=== PATIENT | male | born 1970 | race Caucasian/White ===

== ENCOUNTER 2018-10-30 13:27 | Emergency (ER) | payer BC, OTHER ==
[2018-10-30] MEDS ORDERED: IPRATROPIUM-ALBUTEROL 3 ML NEB INHALATION STA (14:24)
--- NOTE | 2018-10-30 14:32 | ED ---
General Adult HPI - General Chief complaint: Shortness of Breath Stated complaint: SOB Time Seen by Provider: 10/30/18 14:04 Source: patient, RN notes reviewed Mode of arrival: ambulatory Limitations: no limitations - History of Present Illness Initial comments: Patient is a pleasant 48-year-old male presenting to the emergency Department with complaints of cough and congestion and shortness of breath. Symptoms of been present for the past 4 days. Patient has been coughing with productive yellow sputum. No fevers. Patient is a nonsmoker. This is not a chronic problem for him. No leg pain or leg swelling. No chest pain. - Related Data Home Medications Medication Instructions Recorded Confirmed Albuterol Inhaler [Ventolin Hfa 1 - 2 puff INHALATION RT-Q6H PRN 10/30/18 10/30/18 Inhaler] Aspirin EC [Ecotrin Low Dose] 81 mg PO DAILY 10/30/18 10/30/18 Ibuprofen [Motrin] 800 mg PO Q6H PRN 10/30/18 10/30/18 Metoprolol Tartrate [Lopressor] 25 mg PO DAILY 10/30/18 10/30/18 Multivitamins, Thera [Multivitamin 1 tab PO DAILY 10/30/18 10/30/18 (formulary)] Ranitidine HCl [Zantac] 150 mg PO DAILY 10/30/18 10/30/18 cloNIDine HCL [Catapres] 0.1 mg PO BID 10/30/18 10/30/18 Previous Rx's Medication Instructions Recorded predniSONE 20 mg PO BID #10 tab 10/30/18 Allergies Allergy/AdvReac Type Severity Reaction Status Date / Time No Known Allergies Allergy Verified 10/30/18 14:48 Review of Systems ROS Statement: Those systems with pertinent positive or pertinent negative responses have been documented in the HPI. ROS Other: All systems not noted in ROS Statement are negative. Constitutional: Denies: fever Eyes: Denies: eye pain ENT: Denies: ear pain Respiratory: Reports: cough, dyspnea Cardiovascular: Denies: chest pain Endocrine: Denies: fatigue Gastrointestinal: Denies: abdominal pain Genitourinary: Denies: dysuria Musculoskeletal: Denies: back pain Skin: Denies: rash Neurological: Denies: weakness Past Medical History Past Medical History: Asthma, Osteoarthritis (OA), Seizure Disorder Additional Past Medical History / Comment(s): hx of rapid heart rate, migraines, spontaneous pneumothorax History of Any Multi-Drug Resistant Organisms: None Reported Additional Past Surgical History / Comment(s): chest tube insertion Past Psychological History: No Psychological Hx Reported Smoking Status: Former smoker Past Alcohol Use History: Occasional Past Drug Use History: Marijuana General Exam Limitations: no limitations General appearance: alert, in no apparent distress Head exam: Present: atraumatic Eye exam: Present: normal appearance, PERRL ENT exam: Present: normal oropharynx Neck exam: Present: normal inspection Respiratory exam: Present: rhonchi Cardiovascular Exam: Present: regular rate, normal rhythm GI/Abdominal exam: Present: soft. Absent: tenderness Extremities exam: Present: normal inspection. Absent: pedal edema, calf tenderness Neurological exam: Present: alert Psychiatric exam: Present: normal affect, normal mood Skin exam: Present: normal color Course Vital Signs 10/30/18 10/30/18 10/30/18 13:37 15:09 15:18 Temperature 98.1 F Pulse Rate 77 64 68 Respiratory 24 Rate Blood Pressure 145/91 O2 Sat by Pulse 100 Oximetry 10/30/18 15:38 Temperature 97.9 F Pulse Rate 68 Respiratory 18 Rate Blood Pressure 136/85 O2 Sat by Pulse 97 Oximetry Medical Decision Making - Medical Decision Making Patient reevaluated and feels much better following an alleged treatment. Patient updated on results and need for follow-up. Patient states he does have a Ventolin inhaler at home. - Lab Data Lab Results 10/30/18 Range/Units 14:42 D-Dimer 0.29 (<0.60) mg/L FEU - Radiology Data Radiology results: image reviewed (Chest x-ray shows no acute process) Disposition Clinical Impression: Acute bronchitis Disposition: HOME SELF-CARE Condition: Stable Instructions (If sedation given, give patient instructions): Acute Bronchitis (ED) Additional Instructions: Please follow-up with primary care physician in the next day or 2 for recheck. Return for difficulty breathing, fevers, worsening or changing symptoms or other concerns. Prescriptions: predniSONE 20 mg PO BID #10 tab Is patient prescribed a controlled substance at d/c from ED?: No Referrals: Rylie Tyson DO [Primary Care Provider] - 1-2 days Time of Disposition: 15:48
--- NOTE | 2018-10-30 15:06 | XR ---
EXAMINATION TYPE: XR chest 2V DATE OF EXAM: 10/30/2018 COMPARISON: Chest x-ray June 19, 2017 HISTORY: Shortness of breath with cough for a few days. TECHNIQUE: Frontal and lateral views of the chest are obtained. FINDINGS: There is some chronic parenchymal change without suspicious focal air space opacity, pleur al effusion, or pneumothorax seen. The cardiac silhouette size is within normal limits. The osseou s structures are intact. IMPRESSION: No suspicious acute pulmonary process.
[2018-10-30 15:39] VITALS: RESP 18
[2018-10-30 15:58] VITALS: BP 135/87; PULSE 87; TEMP 98
== END 2018-10-30 15:58 | disposition home or self-care (01) ==
LOC: EC 13:27
DX: J20.9 Acute bronchitis, unspecified (principal); J45.909 Unspecified asthma, uncomplicated; Z87.891 Personal history of nicotine dependence; Z79.82 Long term (current) use of aspirin; Z79.899 Other long term (current) drug therapy
CPT/HCPCS: 36415; 71046; 85379; 94640; 99285

== ENCOUNTER 2019-09-18 09:05 | Emergency (ER) | payer BC ==
[2019-09-18 09:14] VITALS: RESP 18; TEMP 98.2
[2019-09-18] MEDS ORDERED: METOCLOPRAMIDE 5 MG/ML 2 ML VIAL IVP STA (09:34)
[2019-09-18] MEDS ORDERED: MAG HYDROX/AL HYDROX/SIMETH 30 ML, HYOSCYAMINE ELIXIR 10 ML PO STA ×2 (09:34)
[2019-09-18] MEDS ORDERED: diphenhydrAMINE 50 MG/ML 1 ML VIAL IVP STA (09:34)
[2019-09-18] MEDS ORDERED: PANTOPRAZOLE 40 MG/10 ML VIAL IVP STA (09:34)
[2019-09-18] MEDS ORDERED: SODIUM CHLORIDE 0.9% 2,000 ML IV STA (09:34)
--- NOTE | 2019-09-18 09:51 | ED ---
Abdominal Pain HPI - General Chief Complaint: Abdominal Pain Stated Complaint: abd pain/vomiting/cough Time Seen by Provider: 09/18/19 09:17 Source: patient, RN notes reviewed Mode of arrival: ambulatory Limitations: no limitations - History of Present Illness Initial Comments: 48-year-old male presents emergency Department chief complaint of abdominal pain. Patient states his upper abdominal pain that has been going on since Sunday. Patient states he was seen by his PCP and Sunday was given Zofran and a shot of antiemetics in the office. Patient states that he is advised to go emergency Department if no improved. He states is primarily bilious but states he felt that there was some blood in it. Denies any melanotic stool or hematochezia at this time. Patient denies any fever, chills no prior abdominal issues denies any history of liver disease, IBS or IBD. Patient denies any dysuria hematuria no sick contacts no chest pain or shortness breath. - Related Data Home Medications Medication Instructions Recorded Confirmed Albuterol Inhaler (Mhu) [Ventolin 1 - 2 puff INHALATION RT-Q6H PRN 10/30/18 0 10/30/18 Hfa Inhaler] Aspirin EC [Ecotrin Low Dose] 81 mg PO DAILY 10/30/18 10/30/18 Ibuprofen [Motrin] 800 mg PO Q6H PRN 10/30/18 10/30/18 Metoprolol Tartrate [Lopressor] 25 mg PO DAILY 10/30/18 10/30/18 Multivitamins, Thera [Multivitamin 1 tab PO DAILY 10/30/18 10/30/18 (formulary)] Ranitidine HCl [Zantac] 150 mg PO DAILY 10/30/18 10/30/18 cloNIDine HCL [Catapres] 0.1 mg PO BID 10/30/18 10/30/18 Previous Rx's Medication Instructions Recorded predniSONE [Deltasone] 20 mg PO BID #10 tab 10/30/18 Metoclopramide [Reglan] 10 mg PO TID PRN #15 tab 09/18/19 Omeprazole [PriLOSEC] 40 mg PO DAILY #14 cap 09/18/19 Allergies Allergy/AdvReac Type Severity Reaction Status Date / Time No Known Allergies Allergy Verified 09/18/19 09:14 Review of Systems ROS Statement: Those systems with pertinent positive or pertinent negative responses have been documented in the HPI. ROS Other: All systems not noted in ROS Statement are negative. Past Medical History Past Medical History: Asthma, Osteoarthritis (OA), Seizure Disorder Additional Past Medical History / Comment(s): hx of rapid heart rate, migraines, spontaneous pneumothorax History of Any Multi-Drug Resistant Organisms: None Reported Additional Past Surgical History / Comment(s): chest tube insertion Past Psychological History: No Psychological Hx Reported Smoking Status: Former smoker Past Alcohol Use History: Occasional Past Drug Use History: Marijuana General Exam Limitations: no limitations General appearance: alert, in no apparent distress Head exam: Present: atraumatic, normocephalic, normal inspection Eye exam: Present: normal appearance, PERRL, EOMI. Absent: scleral icterus, conjunctival injection, periorbital swelling ENT exam: Present: normal exam, normal oropharynx, mucous membranes moist Neck exam: Present: normal inspection. Absent: tenderness, meningismus, lymphadenopathy Respiratory exam: Present: normal lung sounds bilaterally. Absent: respiratory distress, wheezes, rales, rhonchi, stridor Cardiovascular Exam: Present: regular rate, normal rhythm, normal heart sounds. Absent: systolic murmur, diastolic murmur, rubs, gallop, clicks GI/Abdominal exam: Present: soft, tenderness (Found moderate epigastric, left upper quadrant tenderness), normal bowel sounds. Absent: distended, guarding, rebound, rigid Back exam: Absent: CVA tenderness (R), CVA tenderness (L) Neurological exam: Present: alert, oriented X3 Skin exam: Present: warm, dry, intact, normal color. Absent: rash Course Vital Signs 09/18/19 09:10 Temperature 98.2 F Pulse Rate 57 L Respiratory 18 Rate Blood Pressure 156/95 O2 Sat by Pulse 100 Oximetry - Reevaluation(s) Reevaluation #1: 09/18/19 11:13 Patient reevaluated and updated on results patient states he feels greatly improved after antiemetics and GI cocktail. He states the burning has subsided. Medical Decision Making - Medical Decision Making 48-year-old male presented emergency from for epigastric discomfort. Patient's had labs which are essentially unremarkable. Patient was given GI cocktail, Reglan which greatly improved his symptoms. His symptoms are consistent with gastritis/PUD. Patient was started on Lozol 40 mg. He is advised to discontinue NSAID use. He is advised follow-up for EGD with GI. Return par ameters were discussed. Is also advised follow-up with PCP within one to days. - Lab Data Result diagrams: 09/18/19 09:50 09/18/19 09:50 Lab Results 09/18/19 09/18/19 09/18/19 Range/Units 09:50 09:50 09:50 WBC 11.9 H (3.8-10.6) k/uL RBC 5.09 (4.30-5.90) m/uL Hgb 14.7 (13.0-17.5) gm/dL Hct 44.4 (39.0-53.0) % MCV 87.3 (80.0-100.0) fL MCH 28.9 (25.0-35.0) pg MCHC 33.1 (31.0-37.0) g/dL RDW 12.6 (11.5-15.5) % Plt Count 437 (150-450) k/uL Neutrophils % 74 % Lymphocytes % 18 % Monocytes % 4 % Eosinophils % 2 % Basophils % 0 % Neutrophils # 8.8 H (1.3-7.7) k/uL Lymphocytes # 2.1 (1.0-4.8) k/uL Monocytes # 0.5 (0-1.0) k/uL Eosinophils # 0.3 (0-0.7) k/uL Basophils # 0.0 (0-0.2) k/uL PT 10.6 (9.0-12.0) sec INR 1.0 (<1.2) APTT 21.8 L (22.0-30.0) sec Sodium 137 (137-145) mmol/L Potassium 4.3 (3.5-5.1) mmol/L Chloride 107 (98-107) mmol/L Carbon Dioxide 23 (22-30) mmol/L Anion Gap 7 mmol/L BUN 15 (9-20) mg/dL Creatinine 0.75 (0.66-1.25) mg/dL Est GFR (CKD-EPI)AfAm >90 (>60 ml/min/1.73 sqM) Est GFR (CKD-EPI)NonAf >90 (>60 ml/min/1.73 sqM) Glucose 95 (74-99) mg/dL Plasma Lactic Acid Richardson (0.7-2.0) mmol/L Calcium 9.7 (8.4-10.2) mg/dL Total Bilirubin 0.6 (0.2-1.3) mg/dL AST 29 (17-59) U/L ALT 17 (4-49) U/L Alkaline Phosphatase 108 (38-126) U/L Total Protein 7.7 (6.3-8.2) g/dL Albumin 4.5 (3.5-5.0) g/dL Amylase 70 (30-110) U/L Lipase 99 (23-300) U/L 09/18/19 Range/Units 09:50 WBC (3.8-10.6) k/uL RBC (4.30-5.90) m/uL Hgb (13.0-17.5) gm/dL Hct (39.0-53.0) % MCV (80.0-100.0) fL MCH (25.0-35.0) pg MCHC (31.0-37.0) g/dL RDW (11.5-15.5) % Plt Count (150-450) k/uL Neutrophils % % Lymphocytes % % Monocytes % % Eosinophils % % Basophils % % Neutrophils # (1.3-7.7) k/uL Lymphocytes # (1.0-4.8) k/uL Monocytes # (0-1.0) k/uL Eosinophils # (0-0.7) k/uL Basophils # (0-0.2) k/uL PT (9.0-12.0) sec INR (<1.2) APTT (22.0-30.0) sec Sodium (137-145) mmol/L Potassium (3.5-5.1) mmol/L Chloride (98-107) mmol/L Carbon Dioxide (22-30) mmol/L Anion Gap mmol/L BUN (9-20) mg/dL Creatinine (0.66-1.25) mg/dL Est GFR (CKD-EPI)AfAm (>60 ml/min/1.73 sqM) Est GFR (CKD-EPI)NonAf (>60 ml/min/1.73 sqM) Glucose (74-99) mg/dL Plasma Lactic Acid Richardson 1.2 (0.7-2.0) mmol/L Calcium (8.4-10.2) mg/dL Total Bilirubin (0.2-1.3) mg/dL AST (17-59) U/L ALT (4-49) U/L Alkaline Phosphatase (38-126) U/L Total Protein (6.3-8.2) g/dL Albumin (3.5-5.0) g/dL Amylase (30-110) U/L Lipase (23-300) U/L Disposition Clinical Impression: Gastritis, Abdominal pain Disposition: HOME SELF-CARE Condition: Stable Instructions (If sedation given, give patient instructions): Gastritis (ED), Diet for Stomach Ulcers and Gastritis (ED) Additional Instructions: Discontinue NSAID use. Please return to the Emergency Department if symptoms worsen or any other concerns. Prescriptions: Omeprazole [PriLOSEC] 40 mg PO DAILY #14 cap Metoclopramide [Reglan] 10 mg PO TID PRN #15 tab PRN Reason: GERD Is patient prescribed a controlled substance at d/c from ED?: No Referrals: Rylie Tyson DO [Primary Care Provider] - 1-2 days Audrey Norwood MD [STAFF PHYSICIAN] - 1-2 days Time of Disposition: 11:15
[2019-09-18 10:19] LABS: Basophils % (A) 0 %; Eosinophils # (A) 0.3 k/uL (0-0.7); Eosinophils % (A) 2 %; HCT 44.4 % (39.0-53.0); HGB 14.7 gm/dL (13.0-17.5); Lymphocytes # (A) 2.1 k/uL (1.0-4.8); Lymphocytes % (A) 18 %; MCH 28.9 pg (25.0-35.0); MCHC 33.1 g/dL (31.0-37.0); MCV 87.3 fL (80.0-100.0); Monocytes # (A) 0.5 k/uL (0-1.0); Monocytes % (A) 4 %; Neutrophils # (A) 8.8 k/uL (1.3-7.7); Neutrophils % (A) 74 %; Platelet Count 437 k/uL (150-450); RBC 5.09 m/uL (4.30-5.90); RDW 12.6 % (11.5-15.5); WBC 11.9 k/uL (3.8-10.6)
--- NOTE | 2019-09-18 10:21 | XR ---
EXAMINATION TYPE: XR KUB DATE OF EXAM: 09/18/2019 Comparison: None Clinical History: 48 year-old male abdominal pain Findings: Lung bases are clear. No evidence for free intraperitoneal air. No dilated small bowel or differential air-fluid levels. Scattered [id number] stool with air extending distally to the rectum. Pelvic phleboliths. Impression: No evidence for free air or bowel obstruction. Mild to moderate stool burden.
[2019-09-18 10:41] LABS: Prothrombin Time 10.6 sec (9.0-12.0)
[2019-09-18 10:44] LABS: Partial Thromboplastin Time 21.8 sec (22.0-30.0)
[2019-09-18 10:49] LABS: Potassium 4.3 mmol/L (3.5-5.1)
[2019-09-18 10:50] LABS: ALT 17 U/L (4-49); AST 29 U/L (17-59); African American GFR (CKD) >90 (>60 ml/min/1.73 sqM); Albumin 4.5 g/dL (3.5-5.0); Alkaline Phosphatase 108 U/L (38-126); Amylase 70 U/L (30-110); Anion Gap 7 mmol/L; Blood Urea Nitrogen 15 mg/dL (9-20); Calcium 9.7 mg/dL (8.4-10.2); Carbon Dioxide 23 mmol/L (22-30); Chloride 107 mmol/L (98-107); Glucose 95 mg/dL (74-99); Non-African American GFR(CKD) >90 (>60 ml/min/1.73 sqM); Sodium 137 mmol/L (137-145); Total Bilirubin 0.6 mg/dL (0.2-1.3); Total Protein 7.7 g/dL (6.3-8.2)
[2019-09-18] MEDS ORDERED: ACET/COD 300 MG/30 MG STARTER PACK 6 TAB BTL PO STA (11:35)
[2019-09-18 11:42] LABS: Appearance,Urine Clear (Clear); Bilirubin,Urine Negative (Negative); Blood,Urine Trace (Negative); Color,Urine Light Yellow; Glucose,Urine (UA) Negative (Negative); Ketones,Urine Negative (Negative); Leukocyte Esterase,Urine Negative (Negative); Mucus,Urine Rare /hpf; Nitrite,Urine Negative (Negative); PH, Urine 7.5 (5.0-8.0); Protein,Urine Negative (Negative); RBC,Urine 3 /hpf (0-5); Specific Gravity,Urine 1.006 (1.001-1.035); Urobilinogen,Urine <2.0 mg/dL (<2.0)
[2019-09-18 11:46] VITALS: BP 154/88; PULSE 80
== END 2019-09-18 11:44 | disposition home or self-care (01) ==
LOC: EC 09:05
DX: K29.70 Gastritis, unspecified, without bleeding (principal); J45.909 Unspecified asthma, uncomplicated; Z79.51 Long term (current) use of inhaled steroids; Z79.899 Other long term (current) drug therapy; Z79.82 Long term (current) use of aspirin; Z87.891 Personal history of nicotine dependence
CPT/HCPCS: 36415; 74018; 80053; 81001; 82150; 83605; 83690; 85025; 85610; 85730; 96361; 96374; 96375; 99284

== ENCOUNTER → 2019-10-13 | Day surgery (SDC) | payer BC ==
[2019-10-09 10:07] VITALS: BMI 21.5
[~2019-10-13] MED LIST: GLYCOPYRROLATE 0.2 MG/ML 2 ML VIAL ONE; LACTATED RINGERS 1,000 ML IV SCH; LIDOCAINE 1% (10MG/ML) FOR IV START INTRADERMA ONE; LIDOCAINE 1% INJ 10MG/ML (20 ML MDV) ONE; PROPOFOL 10 MG/ML 20 ML VIAL IV ONE
[2019-10-13 11:04] VITALS: TEMP 97.4
[2019-10-13 11:23] LABS: Glucose,Whole Blood 101 mg/dL (75-99)
--- NOTE | 2019-10-13 12:42 | P.PCN ---
Date of Procedure: 10/13/19 Description of Procedure: BRIEF HISTORY: Patient is a 49-year-old female presenting for outpatient EGD for evaluation of hematemesis. Patient is seen in the ER for abdominal pain and hematemesis. Follow-up in gastroenterology clinic and was started on PPI therapy. Denies any NSAID use. No change in bowel movements. PROCEDURE PERFORMED: Esophagogastroduodenoscopy with biopsy. PREOPERATIVE DIAGNOSIS: Hematemesis. ESTIMATED BLOOD LOSS: Minimal. IV sedation per anesthesia. PROCEDURE: After informed consent was obtained, the patient was brought into the endoscopy unit. IV sedation was administered by Anesthesia under continuous monitoring. Initially the Olympus GIF-190 video endoscope was inserted into the mouth. Esophagus intubated without any difficulty. It was gradually advanced into the stomach and duodenum and carefully examined. The bulb and the second part of the duodenum appeared normal, with biopsies taken. The scope at this time was withdrawn to the stomach, adequately insufflated with air, and upon careful examination, mucosa of the antrum, body, cardia and the fundus appeared normal except for some mild scattered punctate erythema in the antrum and body suggestive of mild gastritis with biopsies taken. There was also a 5 mm nonbleeding antral ulcer which was biopsied. The scope was then withdrawn into the esophagus. The GE junction was located at 39 cm from the incisors and appeared regular with biopsies taken. The esophagus appeared normal. There were no erosions or ulcerations seen and the patient tolerated the procedure well. IMPRESSION: 1. Nonbleeding 5 mm antral ulcer, biopsies. 2. Mild gastritis antrum and body, biopsied. 3. Biopsies of the duodenum and GE junction. RECOMMENDATIONS: The findings of this examination were discussed with the patient. Okay to resume diet. Okay to resume medications. Continue to avoid NSAID use. Continue Omeprazole daily. Patient has follow-up appointment in November and can be scheduled for repeat EGD at a time to check for ulcer healing.
[2019-10-13 12:44] VITALS: BP 117/78
[2019-10-13 12:57] VITALS: PULSE 53; RESP 16
== END ==
LOC: ORWHC2ENDO 10:36
PROVIDERS: ATTEND Internal Medicine
DX: K29.51 Unspecified chronic gastritis with bleeding (principal); K22.8 Other specified diseases of esophagus; K25.4 Chronic or unspecified gastric ulcer with hemorrhage; K08.109 Complete loss of teeth, unspecified cause, unspecified class; I10 Essential (primary) hypertension; J44.9 Chronic obstructive pulmonary disease, unspecified; G43.909 Migraine, unspecified, not intractable, without status migrainosus; F41.9 Anxiety disorder, unspecified; F32.9 Major depressive disorder, single episode, unspecified; M19.90 Unspecified osteoarthritis, unspecified site; Z87.891 Personal history of nicotine dependence; Z79.52 Long term (current) use of systemic steroids; Z79.899 Other long term (current) drug therapy; Z79.82 Long term (current) use of aspirin; Z79.1 Long term (current) use of non-steroidal anti-inflammatories (NSAID); Z98.890 Other specified postprocedural states; Z86.73 Personal history of transient ischemic attack (TIA), and cerebral infarction without residual deficits; Z86.69 Personal history of other diseases of the nervous system and sense organs; Z87.828 Personal history of other (healed) physical injury and trauma
CPT/HCPCS: 88305; 43239; J2001; J2704

== ENCOUNTER 2020-07-10 18:51 | Emergency (ER) | payer BC ==
[2020-07-10] MEDS ORDERED: SODIUM CHLORIDE 0.9% 1,000 ML IV STA (19:04)
[2020-07-10 19:06] VITALS: BP 164/97; PULSE 50; RESP 18; TEMP 98.8
[2020-07-10 19:07] LABS: Glucose,Whole Blood 100 mg/dL (75-99)
--- NOTE | 2020-07-10 19:07 | ED ---
General Adult HPI - General Chief complaint: Syncope Stated complaint: Chest Pain Time Seen by Provider: 07/10/20 18:53 Source: patient, EMS Mode of arrival: EMS Limitations: no limitations - History of Present Illness Initial comments: Patient presents the ED by ambulance for evaluation. Patient states that he was sitting in a [employer] while at work today when he suddenly became lightheaded, then had a syncopal episode. Patient states that his coworkers witnessed his syncopal episode, and he denies falling or sustaining any trauma. Patient states that he just feels very "worn out" currently. Patient states that he had a meal to eat about 30 minutes prior to his syncopal episode today. Patient denies alcohol use or illicit drug use today. Patient states that he has otherwise felt fine today. Patient denies having any pain, fever or chills, headache, focal numbness/weakness/neuro deficit, visual changes, speech difficulty, chest pain or pressure, dyspnea, palpitations, abdominal pain, nausea/vomiting/diarrhea, bloody or melanotic stool, dysuria or urinary symptoms, or any other symptoms or complaints. Patient denies any recent change in his medications. Patient states that he takes metoprolol and clonidine for management of his high blood pressure. - Related Data Home Medications Medication Instructions Recorded Confirmed Albuterol Inhaler (Mhu) [Ventolin 1 - 2 puff INHALATION RT-Q6H PRN 10/30/18 10/09/19 Hfa Inhaler] Aspirin EC [Ecotrin Low Dose] 81 mg PO DAILY 10/30/18 10/09/19 Metoprolol Tartrate [Lopressor] 25 mg PO QAM 10/30/18 10/09/19 Multivitamins, Thera [Multivitamin 1 tab PO DAILY 10/30/18 10/09/19 (formulary)] cloNIDine HCL [Catapres] 0.1 mg PO BID 10/30/18 10/09/19 Previous Rx's Medication Instructions Recorded predniSONE [Deltasone] 20 mg PO BID #10 tab 10/30/18 Metoclopramide [Reglan] 10 mg PO TID PRN #15 tab 09/18/19 Omeprazole [PriLOSEC] 40 mg PO DAILY #14 cap 09/18/19 Allergies Allergy/AdvReac Type Severity Reaction Status Date / Time No Known Allergies Allergy Verified 07/10/20 18:59 Review of Systems ROS Statement: Those systems with pertinent positive or pertinent negative responses have been documented in the HPI. ROS Other: All systems not noted in ROS Statement are negative. Past Medical History Past Medical History: Asthma, COPD, CVA/TIA, Hypertension, Osteoarthritis (OA), Seizure Disorder Additional Past Medical History / Comment(s): recent episodes of vomiting blood, hx of head injury r/t fall from tree, migraines, spontaneous pneumothorax, states TIA x3, some short term memory loss History of Any Multi-Drug Resistant Organisms: None Reported Additional Past Surgical History / Comment(s): chest tube insertion Past Anesthesia/Blood Transfusion Reactions: No Reported Reaction Past Psychological History: Anxiety, Depression Past Alcohol Use History: Rare Past Drug Use History: Marijuana - Past Family History Mother Family Medical History: No Reported History General Exam Limitations: no limitations General appearance: alert, in no apparent distress Head exam: Present: atraumatic, normocephalic Eye exam: Present: normal appearance, PERRL, EOMI ENT exam: Present: mucous membranes moist Neck exam: Present: other (Trachea is in midline) Respiratory exam: Present: normal lung sounds bilaterally. Absent: respiratory distress, wheezes, rales, rhonchi, stridor Cardiovascular Exam: Present: normal rhythm, bradycardia, normal heart sounds, other (Normal radial pulses bilaterally) GI/Abdominal exam: Present: soft. Absent: distended, tenderness, guarding Extremities exam: Present: full ROM. Absent: tenderness, pedal edema Neurological exam: Present: alert, oriented X3, CN II-XII intact. Absent: motor sensory deficit Psychiatric exam: Present: normal affect, normal mood Skin exam: Present: warm, dry, intact, normal color Course Vital Signs 07/10/20 18:59 Temperature 98.8 F Pulse Rate 50 L Respiratory 18 Rate Blood Pressure 164/97 O2 Sat by Pulse 99 Oximetry - Reevaluation(s) Reevaluation #1: 07/10/20 21:04 Patient states that he feels "much better" now, and he denies development of any new symptoms while in the ED. 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 Patient remains alert and breathing comfortably. Patient and ar e aware of the patient's test results, and patient feels comfortable going home with his at this time. Patient was counseled about syncope, and he was instructed to drink plenty of water/fluids to stay hydrated. Patient was clearly explained return and follow-up instructions, and he was instructed to follow up closely with his primary care provider. Patient feels comfortable with this plan. EKG Findings - EKG Comments: EKG Findings:: Sinus bradycardia, ventricular rate of 49 bpm, normal PA and QRS intervals, normal QT interval, normal axis, no ST or T-wave abnormality Medical Decision Making - Medical Decision Making Patient's EKG shows sinus bradycardia, but is otherwise unremarkable. Patient states that he does take a beta ariel daily (metoprolol). Patient's labs and chest x-ray are fairly unremarkable. I do not suspect an emergent medical etiology of the patient's syncope. Will discharge patient home with his at this time. Clear return and follow up instructions were given. Patient was instructed to have a low threshold for return to the ED should he develop new or worsening symptoms. Patient feels comfortable with this plan. - Lab Data Result diagrams: 07/10/20 19:09 07/10/20 19:09 Lab Results 07/10/20 07/10/20 07/10/20 Range/Units 19:06 19:09 19:09 WBC 8.2 (3.8-10.6) k/uL RBC 4.71 (4.30-5.90) m/uL Hgb 13.6 (13.0-17.5) gm/dL Hct 40.9 (39.0-53.0) % MCV 87.0 (80.0-100.0) fL MCH 28.8 (25.0-35.0) pg MCHC 33.1 (31.0-37.0) g/dL RDW 13.3 (11.5-15.5) % Plt Count 392 (150-450) k/uL MPV 6.2 Neutrophils % 64 % Lymphocytes % 27 % Monocytes % 5 % Eosinophils % 3 % Basophils % 1 % Neutrophils # 5.2 (1.3-7.7) k/uL Lymphocytes # 2.2 (1.0-4.8) k/uL Monocytes # 0.4 (0-1.0) k/uL Eosinophils # 0.2 (0-0.7) k/uL Basophils # 0.1 (0-0.2) k/uL PT 11.0 (9.0-12.0) sec INR 1.0 (<1.2) APTT 23.2 (22.0-30.0) sec Sodium (137-145) mmol/L Potassium (3.5-5.1) mmol/L Chloride (98-107) mmol/L Carbon Dioxide (22-30) mmol/L Anion Gap mmol/L BUN (9-20) mg/dL Creatinine (0.66-1.25) mg/dL Est GFR (CKD-EPI)AfAm (>60 ml/min/1.73 sqM) Est GFR (CKD-EPI)NonAf (>60 ml/min/1.73 sqM) Glucose (74-99) mg/dL POC Glucose (mg/dL) 100 H (75-99) mg/dL POC Glu Mechanical Maintenance Foreman Yara Alvarez Calcium (8.4-10.2) mg/dL Magnesium (1.6-2.3) mg/dL Total Bilirubin (0.2-1.3) mg/dL AST (17-59) U/L ALT (4-49) U/L Alkaline Phosphatase (38-126) U/L Troponin I (0.000-0.034) ng/mL Total Protein (6.3-8.2) g/dL Albumin (3.5-5.0) g/dL 07/10/20 07/10/20 Range/Units 19:09 19:09 WBC (3.8-10.6) k/uL RBC (4.30-5.90) m/uL Hgb (13.0-17.5) gm/dL Hct (39.0-53.0) % MCV (80.0-100.0) fL MCH (25.0-35.0) pg MCHC (31.0-37.0) g/dL RDW (11.5-15.5) % Plt Count (150-450) k/uL MPV Neutrophils % % Lymphocytes % % Monocytes % % Eosinophils % % Basophils % % Neutrophils # (1.3-7.7) k/uL Lymphocytes # (1.0-4.8) k/uL Monocytes # (0-1.0) k/uL Eosinophils # (0-0.7) k/uL Basophils # (0-0.2) k/uL PT (9.0-12.0) sec INR (<1.2) APTT (22.0-30.0) sec Sodium 136 L (137-145) mmol/L Potassium 3.9 (3.5-5.1) mmol/L Chloride 104 (98-107) mmol/L Carbon Dioxide 25 (22-30) mmol/L Anion Gap 7 mmol/L BUN 20 (9-20) mg/dL Creatinine 0.90 (0.66-1.25) mg/dL Est GFR (CKD-EPI)AfAm >90 (>60 ml/min/1.73 sqM) Est GFR (CKD-EPI)NonAf >90 (>60 ml/min/1.73 sqM) Glucose 100 H (74-99) mg/dL POC Glucose (mg/dL) (75-99) mg/dL POC Glu Mechanical Maintenance Foreman ID Calcium 9.0 (8.4-10.2) mg/dL Magnesium 2.0 (1.6-2.3) mg/dL Total Bilirubin 0.4 (0.2-1.3) mg/dL AST 31 (17-59) U/L ALT 19 (4-49) U/L Alkaline Phosphatase 97 (38-126) U/L Troponin I <0.012 (0.000-0.034) ng/mL Total Protein 7.0 (6.3-8.2) g/dL Albumin 4.1 (3.5-5.0) g/dL - Radiology Data Radiology results: report reviewed (Chest x-ray: Minimal subsegmental atelectasis left lung base, normal heart) Disposition Clinical Impression: Syncope Disposition: HOME SELF-CARE Condition: Stable Instructions (If sedation given, give patient instructions): Syncope (ED) Additional Instructions: Return to the ER immediately should you develop any significant pain, a fever, chest pain, shortness of breath, feeling faint or fainting, or new or worsening symptoms. Follow up closely with your primary care provider. Is patient prescribed a controlled substance at d/c from ED?: No Referrals: Rylie Tyson DO [Primary Care Provider] - 1-2 days Time of Disposition: 21:08
[2020-07-10 19:27] LABS: Basophils # (A) 0.1 k/uL (0-0.2); Basophils % (A) 1 %; Eosinophils # (A) 0.2 k/uL (0-0.7); Eosinophils % (A) 3 %; HCT 40.9 % (39.0-53.0); HGB 13.6 gm/dL (13.0-17.5); Lymphocytes # (A) 2.2 k/uL (1.0-4.8); Lymphocytes % (A) 27 %; MCH 28.8 pg (25.0-35.0); MCHC 33.1 g/dL (31.0-37.0); Mean Platelet Volume 6.2; Monocytes # (A) 0.4 k/uL (0-1.0); Monocytes % (A) 5 %; Neutrophils # (A) 5.2 k/uL (1.3-7.7); Neutrophils % (A) 64 %; Platelet Count 392 k/uL (150-450); RBC 4.71 m/uL (4.30-5.90); RDW 13.3 % (11.5-15.5); WBC 8.2 k/uL (3.8-10.6)
[2020-07-10 19:32] LABS: Partial Thromboplastin Time 23.2 sec (22.0-30.0)
[2020-07-10 19:35] LABS: ALT 19 U/L (4-49); AST 31 U/L (17-59); African American GFR (CKD) >90 (>60 ml/min/1.73 sqM); Albumin 4.1 g/dL (3.5-5.0); Alkaline Phosphatase 97 U/L (38-126); Anion Gap 7 mmol/L; Blood Urea Nitrogen 20 mg/dL (9-20); Carbon Dioxide 25 mmol/L (22-30); Chloride 104 mmol/L (98-107); Glucose 100 mg/dL (74-99); Non-African American GFR(CKD) >90 (>60 ml/min/1.73 sqM); Potassium 3.9 mmol/L (3.5-5.1); Sodium 136 mmol/L (137-145); Total Bilirubin 0.4 mg/dL (0.2-1.3)
--- NOTE | 2020-07-10 19:50 | XR ---
EXAMINATION TYPE: XR chest 2V DATE OF EXAM: 07/10/2020 COMPARISON: 10/30/2018 HISTORY: Syncope TECHNIQUE: 2 views FINDINGS: Heart and mediastinum are normal. Lungs are clear of infiltrate. There is small subsegmenta l atelectasis left lung base. There are chest leads. IMPRESSION: Minimal subsegmental atelectasis left lung base. Normal heart.
== END 2020-07-10 21:30 | disposition home or self-care (01) ==
LOC: EC 18:51
DX: R55 Syncope and collapse (principal); J44.9 Chronic obstructive pulmonary disease, unspecified; I10 Essential (primary) hypertension; M19.90 Unspecified osteoarthritis, unspecified site; G40.909 Epilepsy, unspecified, not intractable, without status epilepticus; F32.9 Major depressive disorder, single episode, unspecified; F12.90 Cannabis use, unspecified, uncomplicated; Z86.73 Personal history of transient ischemic attack (TIA), and cerebral infarction without residual deficits; Z79.82 Long term (current) use of aspirin; Z79.52 Long term (current) use of systemic steroids
CPT/HCPCS: 36415; 71046; 80053; 83735; 84484; 85025; 85610; 85730; 93005; 96361; 96376; 99284

== ENCOUNTER 2021-01-21 09:51 | Observation (INO) | payer BC, OTHER ==
[2021-01-21] MEDS ORDERED: SODIUM CHLORIDE 0.9% 500 ML 500 ML IV STA (10:06)
[2021-01-21] MEDS ORDERED: ASPIRIN 81 MG PO STA (10:06)
[2021-01-21] MEDS ORDERED: LORazepam 2 MG/ML INJ IV STA (10:08)
--- NOTE | 2021-01-21 10:11 | ED ---
General Adult HPI - General Chief complaint: Chest Pain Stated complaint: chest pain Time Seen by Provider: 01/21/21 10:00 Source: patient, EMS, RN notes reviewed, old records reviewed Mode of arrival: EMS Limitations: no limitations - History of Present Illness Initial comments: This is a 50-year-old male who presents emergency Department complaining of chest pressure at work. Patient states he was under a lot of stress at work he started having chest pressure last between 5-10 minutes. Patient states became very diaphoretic. Patient states after that he started having some tingling in his right arm and around his lips. Patient does state he has a history of anxiety. Patient states once he sat down and relaxed the chest pressure eventually subsided. Patient states currently he has no chest pressure. Patient denies headache patient denies numbness weakness. Patient denies lightheadedness or dizziness. Patient denies abdominal pain patient denies nausea vomiting diarrhea. Patient denies any radiation of the chest pain. Patient denies any swelling to the legs or calf tenderness. Patient states she has a history of hypertension and a strong family history of heart disease. Patient does not smoke. - Related Data Home Medications Medication Instructions Recorded Confirmed Albuterol Inhaler (Mhu) [Ventolin 1 - 2 puff INHALATION RT-Q6H PRN 10/30/18 10/09/19 Hfa Inhaler] Aspirin EC [Ecotrin Low Dose] 81 mg PO DAILY 10/30/18 10/09/19 Metoprolol Tartrate [Lopressor] 25 mg PO QAM 10/30/18 10/09/19 Multivitamins, Thera [Multivitamin 1 tab PO DAILY 10/30/18 10/09/19 (formulary)] cloNIDine HCL [Catapres] 0.1 mg PO BID 10/30/18 10/09/19 Previous Rx's Medication Instructions Recorded predniSONE [Deltasone] 20 mg PO BID #10 tab 10/30/18 Metoclopramide [Reglan] 10 mg PO TID PRN #15 tab 09/18/19 Omeprazole [PriLOSEC] 40 mg PO DAILY #14 cap 09/18/19 Allergies Allergy/AdvReac Type Severity Reaction Status Date / Time No Known Allergies Allergy Verified 01/21/21 09:59 Review of Systems ROS Statement: Those systems with pertinent positive or pertinent negative responses have been documented in the HPI. ROS Other: All systems not noted in ROS Statement are negative. Past Medical History Past Medical History: Asthma, COPD, CVA/TIA, Hypertension, Osteoarthritis (OA), Seizure Disorder Additional Past Medical History / Comment(s): recent episodes of vomiting blood, hx of head injury r/t fall from tree, migraines, spontaneous pneumothorax, states TIA x3, some short term memory loss History of Any Multi-Drug Resistant Organisms: None Reported Additional Past Surgical History / Comment(s): chest tube insertion Past Anesthesia/Blood Transfusion Reactions: No Reported Reaction Past Psychological History: Anxiety, Depression Smoking Status: Never smoker Past Alcohol Use History: Rare Past Drug Use History: Marijuana - Past Family History Mother Family Medical History: No Reported History General Exam - General Exam Comments Initial Comments: GENERAL: Patient is well-developed and well-nourished. Patient is nontoxic and well- hydrated and is in mild distress. ENT: Neck is soft and supple. No significant lymphadenopathy is noted. Oropharynx is clear. Moist mucous membranes. Neck has full range of motion without eliciting any pain. EYES: The sclera were anicteric and conjunctiva were pink and moist. Extraocular movements were intact and pupils were equal round and reactive to light. Eyelids were unremarkable. PULMONARY: Unlabored respirations. Good breath sounds bilaterally. No audible rales rhonchi or wheezing was noted. CARDIOVASCULAR: There is a regular rate and rhythm without any murmurs gallops or rubs. ABDOMEN: Soft and nontender with normal bowel sounds. SKIN: Skin is clear with no lesions or rashes and otherwise unremarkable. NEUROLOGIC: Patient is alert and oriented x3. Cranial nerves II through XII are grossly intact. Motor and sensory are also intact. Normal speech, volume and content. Symmetrical smile. MUSCULOSKELETAL: Normal extremities with adequate strength and full range of motion. No lower extremity swelling or edema. No calf tenderness. LYMPHATICS: No significant lymphadenopathy is noted PSYCHIATRIC: Normal psychiatric evaluation. Limitations: no limitations Course Vital Signs 01/21/21 01/21/21 09:52 11:16 Temperature 98 F Pulse Rate 64 58 L Respiratory 18 18 Rate Blood Pressure 157/105 130/90 O2 Sat by Pulse 96 98 Oximetry Medical Decision Making - Medical Decision Making EKG shows normal sinus rhythm at 63 bpm IL interval 160 QRS is 96 QT interval 412 QTC is 421 per patient's EKG shows no ST segment elevation or depression. EKG is a posterior EKG shows a sinus rhythm at 60 bpm IL interval is 132 QRS is 84 QT interval 390 QTC is 414. There is no ST segment elevation or depression. New. Patient received aspirin and Nitropaste emergency department. Chest x-ray shows no acute abnormality. Patient remained without chest pain during his whole stay. [facility] itted the patient wrote admitting orders I consulted cardiology. - Lab Data Result diagrams: 01/21/21 10:14 01/21/21 10:14 Lab Results 01/21/21 01/21/21 01/21/21 Range/Units 10:14 10:14 10:14 WBC 9.4 (3.8-10.6) k/uL RBC 4.35 (4.30-5.90) m/uL Hgb 12.5 L (13.0-17.5) gm/dL Hct 38.2 L (39.0-53.0) % MCV 87.7 (80.0-100.0) fL MCH 28.7 (25.0-35.0) pg MCHC 32.7 (31.0-37.0) g/dL RDW 13.3 (11.5-15.5) % Plt Count 416 (150-450) k/uL MPV 6.6 Neutrophils % 72 % Lymphocytes % 20 % Monocytes % 4 % Eosinophils % 2 % Basophils % 1 % Neutrophils # 6.8 (1.3-7.7) k/uL Lymphocytes # 1.8 (1.0-4.8) k/uL Monocytes # 0.4 (0-1.0) k/uL Eosinophils # 0.2 (0-0.7) k/uL Basophils # 0.1 (0-0.2) k/uL PT 10.8 (9.0-12.0) sec INR 1.0 (<1.2) APTT 23.6 (22.0-30.0) sec Sodium 135 L (137-145) mmol/L Potassium 4.5 (3.5-5.1) mmol/L Chloride 108 H (98-107) mmol/L Carbon Dioxide 21 L (22-30) mmol/L Anion Gap 6 mmol/L BUN 23 H (9-20) mg/dL Creatinine 0.76 (0.66-1.25) mg/dL Est GFR (CKD-EPI)AfAm >90 (>60 ml/min/1.73 sqM) Est GFR (CKD-EPI)NonAf >90 (>60 ml/min/1.73 sqM) Glucose 91 (74-99) mg/dL Calcium 8.7 (8.4-10.2) mg/dL Magnesium 1.9 (1.6-2.3) mg/dL Total Bilirubin 0.5 (0.2-1.3) mg/dL AST 37 (17-59) U/L ALT 17 (4-49) U/L Alkaline Phosphatase 97 (38-126) U/L Troponin I (0.000-0.034) ng/mL Total Protein 7.0 (6.3-8.2) g/dL Albumin 3.8 (3.5-5.0) g/dL 01/21/21 Range/Units 10:14 WBC (3.8-10.6) k/uL RBC (4.30-5.90) m/uL Hgb (13.0-17.5) gm/dL Hct (39.0-53.0) % MCV (80.0-100.0) fL MCH (25.0-35.0) pg MCHC (31.0-37.0) g/dL RDW (11.5-15.5) % Plt Count (150-450) k/uL MPV Neutrophils % % Lymphocytes % % Monocytes % % Eosinophils % % Basophils % % Neutrophils # (1.3-7.7) k/uL Lymphocytes # (1.0-4.8) k/uL Monocytes # (0-1.0) k/uL Eosinophils # (0-0.7) k/uL Basophils # (0-0.2) k/uL PT (9.0-12.0) sec INR (<1.2) APTT (22.0-30.0) sec Sodium (137-145) mmol/L Potassium (3.5-5.1) mmol/L Chloride (98-107) mmol/L Carbon Dioxide (22-30) mmol/L Anion Gap mmol/L BUN (9-20) mg/dL Creatinine (0.66-1.25) mg/dL Est GFR (CKD-EPI)AfAm (>60 ml/min/1.73 sqM) Est GFR (CKD-EPI)NonAf (>60 ml/min/1.73 sqM) Glucose (74-99) mg/dL Calcium (8.4-10.2) mg/dL Magnesium (1.6-2.3) mg/dL Total Bilirubin (0.2-1.3) mg/dL AST (17-59) U/L ALT (4-49) U/L Alkaline Phosphatase (38-126) U/L Troponin I <0.012 (0.000-0.034) ng/mL Total Protein (6.3-8.2) g/dL Albumin (3.5-5.0) g/dL Disposition Clinical Impression: Chest pain Disposition: ADMITTED IP TO THIS HOSP Referrals: Rylie Tyson DO [Primary Care Provider] - 1-2 days Time of Disposition: 11:43
[2021-01-21] MEDS: NITROGLYCERIN OINT 1 INCH/GM PACKET TOPICAL STA ×2 (10:16→10:26)
[2021-01-21 10:31] LABS: Basophils # (A) 0.1 k/uL (0-0.2); Basophils % (A) 1 %; Eosinophils # (A) 0.2 k/uL (0-0.7); Eosinophils % (A) 2 %; HCT 38.2 % (39.0-53.0); HGB 12.5 gm/dL (13.0-17.5); Lymphocytes # (A) 1.8 k/uL (1.0-4.8); Lymphocytes % (A) 20 %; MCH 28.7 pg (25.0-35.0); MCHC 32.7 g/dL (31.0-37.0); MCV 87.7 fL (80.0-100.0); Mean Platelet Volume 6.6; Monocytes # (A) 0.4 k/uL (0-1.0); Monocytes % (A) 4 %; Neutrophils # (A) 6.8 k/uL (1.3-7.7); Neutrophils % (A) 72 %; Platelet Count 416 k/uL (150-450); RBC 4.35 m/uL (4.30-5.90); RDW 13.3 % (11.5-15.5); WBC 9.4 k/uL (3.8-10.6)
[2021-01-21 10:40] LABS: Partial Thromboplastin Time 23.6 sec (22.0-30.0); Prothrombin Time 10.8 sec (9.0-12.0)
[2021-01-21 10:42] LABS: ALT 17 U/L (4-49); AST 37 U/L (17-59); African American GFR (CKD) >90 (>60 ml/min/1.73 sqM); Albumin 3.8 g/dL (3.5-5.0); Alkaline Phosphatase 97 U/L (38-126); Anion Gap 6 mmol/L; Blood Urea Nitrogen 23 mg/dL (9-20); Calcium 8.7 mg/dL (8.4-10.2); Carbon Dioxide 21 mmol/L (22-30); Chloride 108 mmol/L (98-107); Glucose 91 mg/dL (74-99); Magnesium 1.9 mg/dL (1.6-2.3); Non-African American GFR(CKD) >90 (>60 ml/min/1.73 sqM); Sodium 135 mmol/L (137-145); Total Bilirubin 0.5 mg/dL (0.2-1.3)
--- NOTE | 2021-01-21 10:50 | XR ---
EXAMINATION TYPE: XR chest 2V DATE OF EXAM: 01/21/2021 COMPARISON: 07/10/2020 INDICATION: Chest pain TECHNIQUE: Frontal and lateral views of the chest are obtained. FINDINGS: The heart size is normal. The pulmonary vasculature is normal. The lungs are clear. IMPRESSION: 1. No acute pulmonary process.
[2021-01-21 11:18] LABS: Potassium 4.5 mmol/L (3.5-5.1)
[2021-01-21] MEDS ORDERED: NITROGLYCERIN SL TABS 0.4 MG TAB SUBLINGUAL PRN (11:44)
[2021-01-21] MEDS: NITROGLYCERIN OINT 1 INCH/GM PACKET TOPICAL SCH ×2 (17:55→23:43)
[2021-01-21] MEDS: ACETAMINOPHEN TAB 325 MG TAB PO PRN ×2 (17:55→23:20)
[2021-01-22] MEDS: NITROGLYCERIN OINT 1 INCH/GM PACKET TOPICAL SCH (06:05)
[2021-01-22 07:31] LABS: African American GFR (CKD) >90 (>60 ml/min/1.73 sqM); Anion Gap 5 mmol/L; Blood Urea Nitrogen 14 mg/dL (9-20); Calcium 9.6 mg/dL (8.4-10.2); Carbon Dioxide 25 mmol/L (22-30); Chloride 107 mmol/L (98-107); Glucose 101 mg/dL (74-99); Non-African American GFR(CKD) >90 (>60 ml/min/1.73 sqM); Potassium 4.8 mmol/L (3.5-5.1); Sodium 137 mmol/L (137-145)
[2021-01-22] MEDS ORDERED: cloNIDine HCL 0.1 MG TAB PO SCH (09:00)
[2021-01-22] MEDS ORDERED: MULTIVITAMINS, THERA 1 EACH TAB PO SCH (09:00)
[2021-01-22] MEDS ORDERED: ASPIRIN 325 MG TAB PO SCH (09:00)
[2021-01-22] MEDS ORDERED: ASPIRIN 81 MG PO SCH (09:00)
[2021-01-22 09:08] VITALS: BMI 20.7
[2021-01-22 10:36] VITALS: BP 158/97; PULSE 58; RESP 17; TEMP 98.5
--- NOTE | 2021-01-22 10:58 | P.HPIM ---
History of Present Illness H&P Date: 01/21/21 Chief Complaint: Chest pain 50-year-old male who presents emergency Department complaining of chest pressure at work. Patient states he was under a lot of stress at work he started having chest pressure last between 5-10 minutes. Patient states became very diaphoretic. Patient states after that he started having some tingling in his right arm and around his lips. Patient does state he has a history of anxiety. Patient states once he sat down and relaxed the chest pressure eventually subsided. Patient states currently he has no chest pressure. Patient denies headache patient denies numbness weakness. Patient denies lightheadedness or dizziness. Patient denies abdominal pain patient denies nausea vomiting diarrhea. Patient denies any radiation of the chest pain. Patient denies any swelling to the legs or calf tenderness. Patient states she has a history of hypertension and a strong family history of heart disease. Patient does not smoke. EKG shows a sinus rhythm at 60 bpm IN interval is 132 QRS is 84 QT interval 390 QTC is 414. There is no ST segment elevation or depression. Patient received aspirin and Nitropaste emergency department. Chest x-ray shows no acute abnormality. Review of Systems REVIEW OF SYSTEMS: CONSTITUTIONAL: No fever, no malaise, no fatigue. HEENT: No recent visual problems or hearing problems. Denied any sore throat. CARDIOVASCULAR: No chest pain, orthopnea, PND, no palpitations, no syncope. PULMONARY: No shortness of breath, no cough, no hemoptysis. GASTROINTESTINAL: No diarrhea, no nausea, no vomiting, no abdominal pain. NEUROLOGICAL: No headaches, no weakness, no numbness. HEMATOLOGICAL: Denies any bleeding or petechiae. GENITOURINARY: Denies any burning micturition, frequency, or urgency. MUSCULOSKELETAL/RHEUMATOLOGICAL: Denies any joint pain, swelling, or any muscle pain. ENDOCRINE: Denies any polyuria or polydipsia. The rest of the 14-point review of systems is negative. Past Medical History Past Medical History: Asthma, COPD, CVA/TIA, Hypertension, Osteoarthritis (OA), Seizure Disorder Additional Past Medical History / Comment(s): recent episodes of vomiting blood, hx of head injury r/t fall from tree, migraines, spontaneous pneumothorax, states TIA x3, some short term memory loss History of Any Multi-Drug Resistant Organisms: None Reported Additional Past Surgical History / Comment(s): chest tube insertion Past Anesthesia/Blood Transfusion Reactions: No Reported Reaction Past Psychological History: Anxiety, Depression Smoking Status: Never smoker Past Alcohol Use History: Rare Past Drug Use History: Marijuana - Past Family History Mother Family Medical History: No Reported History Medications and Allergies Home Medications Medication Instructions Recorded Confirmed Type Aspirin EC [Ecotrin Low Dose] 81 mg PO DAILY 10/30/18 01/21/21 History Multivitamins, Thera [Multivitamin 1 tab PO DAILY 10/30/18 01/21/21 History (formulary)] cloNIDine HCL [Catapres] 0.1 mg PO DAILY 10/30/18 01/21/21 History cloNIDine HCL [Catapres] 0.05 mg PO HS 30 Days #30 tab 01/22/21 Rx Allergies Allergy/AdvReac Type Severity Reaction Status Date / Time No Known Allergies Allergy Verified 01/21/21 12:05 Physical Exam Vitals: Vital Signs Temp Pulse Resp BP Pulse Ox 01/21/21 12:00 97.7 F 54 L 18 129/79 96 01/21/21 11:16 58 L 18 130/90 98 01/21/21 09:52 98 F 64 18 157/105 96 Intake and Output 01/20/21 01/21/21 01/21/21 22:59 06:59 14:59 Other: Weight 65.771 kg PHYSICAL EXAMINATION: GENERAL: The patient is alert and oriented x3, not in any acute distress. Well developed, well nourished. HEENT: Pupils are round and equally reacting to light. EOMI. No scleral icterus. No conjunctival pallor. Normocephalic, atraumatic. No pharyngeal erythema. No thyromegaly. CARDIOVASCULAR: S1 and S2 present. No murmurs, rubs, or gallops. PULMONARY: Chest is clear to auscultation, no wheezing or crackles. ABDOMEN: Soft, nontender, nondistended, normoactive bowel sounds. No palpable organomegaly. MUSCULOSKELETAL: No joint swelling or deformity. EXTREMITIES: No cyanosis, clubbing, or pedal edema. NEUROLOGICAL: Gross neurological examination did not reveal any focal deficits. SKIN: No rashes. Results CBC & Chem 7: 01/21/21 10:14 01/22/21 06:28 Labs: Abnormal Lab Results - Last 24 Hours (Table) 01/21/21 01/21/21 Range/Units 10:14 10:14 Hgb 12.5 L (13.0-17.5) gm/dL Hct 38.2 L (39.0-53.0) % Sodium 135 L (137-145) mmol/L Chloride 108 H (98-107) mmol/L Carbon Dioxide 21 L (22-30) mmol/L BUN 23 H (9-20) mg/dL Assessment and Plan Assessment: 1. Chest pain - We will admit to telemetry; monitor EKG and trend troponin - Scheduled for 2-D echo; continue with aspirin, beta blockers and nitroglycerin - Cardiology consulted and recommendations are pending 2. Mild renal injury; slowly IV fluid hydration; monitor renal function and electrolytes; monitor strict JAIDA's 3. COPD/asthma; not in exacerbation; continue with home inhaler therapy 4. Hypertension; Catapres 0.1 mg daily 5. CVA/TIA; patient remains on aspirin; not on statin therapy DVT prophylaxis; SCDs CODE STATUS; full code
[2021-01-22 11:52] LABS: Basophils # (A) 0.05 X 10*3/uL (0.00-0.10); Basophils % (A) 0.5 %; Eosinophils # (A) 0.16 X 10*3/uL (0.04-0.35); Eosinophils % (A) 1.7 %; HCT 41.5 % (39.6-50.0); HGB 13.3 g/dL (13.0-17.0); Lymphocytes # (A) 1.65 X 10*3/uL (0.90-5.00); Lymphocytes % (A) 17.3 %; MCH 27.5 pg (27.0-32.0); MCV 85.9 fL (80.0-97.0); Mean Platelet Volume 8.4 fL (9.5-12.2); Monocytes # (A) 0.51 X 10*3/uL (0.20-1.00); Monocytes % (A) 5.4 %; Neutrophils # (A) 7.11 X 10*3/uL (1.80-7.70); Neutrophils % (A) 74.6 %; Platelet Count 402 X 10*3/uL (140-440); RBC 4.83 X 10*6/uL (4.40-5.60); RDW 13.8 % (11.5-14.5); WBC 9.53 X 10*3/uL (4.50-10.00)
--- NOTE | 2021-01-22 12:31 | CONS ---
CONSULTATION This is a 50-year-old gentleman with a history of hypertension and atypical chest pain with a negative stress test within the last couple of years. He came into the hospital following a stressful situation at work. He felt very overwhelmed at work when he had to do a lot of things and his blood pressure went up. He had tightness in the chest and he came into the hospital. He also had some tingling around his lips. After arrival, he is comfortable resting. His blood pressure was slightly elevated at 160, but it is normal now. He is asymptomatic, feels well and relaxed, has no chest pain or shortness of breath. His troponins and EKG are unremarkable. He is resting comfortably at the time of my evaluation. PAST MEDICAL HISTORY: 1. Bronchial asthma. 2. Hypertension. 3. Seizure disorder. 4. Osteoarthritis. Patient does not smoke regularly but uses marijuana. He does not drink alcohol regularly. MEDICATIONS: Medications at home include Reglan, omeprazole, clonidine 0.1 mg b.i.d., and also aspirin 81 mg daily, metoprolol tartrate 25 mg daily. PHYSICAL EXAMINATION: On examination, blood pressure is 130/70, pulse rate 70 per minute, regular. HEENT unremarkable. Fundus was not examined by me. Neck is supple. No JVD or carotid bruit. S1, S2 heard normally. Lungs are clear. Abdomen is soft, nontender. Lower extremities reveal normal pulses. No edema. Central nervous system is normal. EKG revealed sinus mechanism, no acute changes. IMPRESSION: 1. Atypical chest pain. 2. Chest pain probably related to stress. Recent stress test was negative. 3. Hypertension. 4. History of marijuana abuse. RECOMMENDATIONS: I am recommending that we increase the clonidine to 0.1 mg in the morning and an additional 0.5 mg tablet in the evening, same medical regimen, including beta blockers, and he can be discharged today. I will see him in the office next week and make further recommendations. Discussed my thoughts in detail with the patient. Thank you very much for the consult. MMODL / IJN: [id number] /
[2021-01-22 21:51] LABS: Chol/HDL Ratio 3.67 Ratio; LDL Cholesterol,Calculated 97.6 mg/dL (0.0-131.0); VLDL Calculation 18.76 mg/dL (5.00-40.00)
== END 2021-01-22 10:59 | disposition home or self-care (01) ==
LOC: EC 09:51 → 6NMEDSUR 11:49
PROVIDERS: ADMIT Internal Medicine; ATTEND Internal Medicine
DX: R07.89 Other chest pain (principal); N17.9 Acute kidney failure, unspecified; R61 Generalized hyperhidrosis; R20.2 Paresthesia of skin; Z56.6 Other physical and mental strain related to work; I10 Essential (primary) hypertension; J44.9 Chronic obstructive pulmonary disease, unspecified; G40.909 Epilepsy, unspecified, not intractable, without status epilepticus; F41.9 Anxiety disorder, unspecified; F32.9 Major depressive disorder, single episode, unspecified; M19.90 Unspecified osteoarthritis, unspecified site; Z79.82 Long term (current) use of aspirin; Z79.899 Other long term (current) drug therapy; Z86.73 Personal history of transient ischemic attack (TIA), and cerebral infarction without residual deficits; Z87.820 Personal history of traumatic brain injury; Z87.09 Personal history of other diseases of the respiratory system; Z98.890 Other specified postprocedural states; Z82.49 Family history of ischemic heart disease and other diseases of the circulatory system
CPT/HCPCS: 96374; 99285; 36415; 93005; 80061; 80053; 80048; 83735; 84484; 85025 ×2; 85610; 85730; 71046; G0378 ×2; J2060

== ENCOUNTER 2021-06-23 09:06 | Emergency (ER) | payer BC, OTHER ==
[2021-06-23 09:14] VITALS: RESP 18; TEMP 97.9
[2021-06-23] MEDS ORDERED: SODIUM CHLORIDE 0.9% 1,000 ML IV ONE (09:19)
--- NOTE | 2021-06-23 09:22 | ED ---
General Adult HPI - General Chief complaint: Dizziness Stated complaint: Dizziness Time Seen by Provider: 06/23/21 09:10 Source: patient, EMS, RN notes reviewed, old records reviewed Mode of arrival: EMS Limitations: no limitations - History of Present Illness Initial comments: This is a 50-year-old male who presents emergency department stating that he went to work and felt fine and all of a sudden he started feeling out of it. Patient states he felt like he was going to possibly lose consciousness though he didn't really feel lightheaded or dizzy. Patient denies any headache patient denies numbness weakness. Patient denies any chest pain difficulty breathing or shortness of breath per patient denies any recent fever chills but states he morales s have a persistent cough. patient denies abdominal pain patient denies nausea vomiting diarrhea per patient denies any drug use or alcohol use. Patient states she's feeling better now. Patient states this has happened in the past. Patient states that he just didn't feel like himself and he felt like he wasn't fully aware of everything going around him. - Related Data Home Medications Medication Instructions Recorded Confirmed Aspirin EC [Ecotrin Low Dose] 81 mg PO DAILY 10/30/18 06/23/21 Multivitamins, Thera [Multivitamin 1 tab PO DAILY 10/30/18 06/23/21 (formulary)] cloNIDine HCL [Catapres] 0.1 mg PO BID 10/30/18 06/23/21 Previous Rx's Medication Instructions Recorded Azithromycin [Zithromax Tri-Lai] 500 mg PO DAILY #3 tab 06/23/21 Allergies Allergy/AdvReac Type Severity Reaction Status Date / Time No Known Allergies Allergy Verified 06/23/21 10:04 Review of Systems ROS Statement: Those systems with pertinent positive or pertinent negative responses have been documented in the HPI. ROS Other: All systems not noted in ROS Statement are negative. Past Medical History Past Medical History: Asthma, COPD, CVA/TIA, Hypertension, Osteoarthritis (OA), Seizure Disorder Additional Past Medical History / Comment(s): recent episodes of vomiting blood, hx of head injury r/t fall from tree, migraines, spontaneous pneumothorax, states TIA x3, some short term memory loss History of Any Multi-Drug Resistant Organisms: None Reported Past Surgical History: No Surgical Hx Reported Additional Past Surgical History / Comment(s): chest tube insertion Past Anesthesia/Blood Transfusion Reactions: No Reported Reaction Past Psychological History: Anxiety, Depression Smoking Status: Never smoker Past Alcohol Use History: Rare Past Drug Use History: Marijuana - Past Family History Mother Family Medical History: No Reported History General Exam - General Exam Comments Initial Comments: GENERAL: Patient is well-developed and well-nourished. Patient is nontoxic and well- hydrated and is in mild distress ENT: Neck is soft and supple. No significant lymphadenopathy is noted. Oropharynx is clear. Moist mucous membranes. Neck has full range of motion without eliciting any pain. EYES: The sclera were anicteric and conjunctiva were pink and moist. Extraocular movements were intact and pupils were equal round and reactive to light. Eyelids were unremarkable. PULMONARY: Unlabored respirations. Good breath sounds bilaterally. No audible rales rhonchi or wheezing was noted. CARDIOVASCULAR: There is a regular rate and rhythm without any murmurs gallops or rubs. ABDOMEN: Soft and nontender with normal bowel sounds. SKIN: Skin is clear with no lesions or rashes and otherwise unremarkable. NEUROLOGIC: Patient is alert and oriented x3. Cranial nerves II through XII are grossly intact. Motor and sensory are also intact. Normal speech, volume and content. Symmetrical smile. MUSCULOSKELETAL: Normal extremities with adequate strength and full range of motion. No lower extremity swelling or edema. No calf tenderness. LYMPHATICS: No significant lymphadenopathy is noted PSYCHIATRIC: Normal psychiatric evaluation. Limitations: no limitations Course Vital Signs 06/23/21 06/23/21 09:07 10:46 Temperature 97.9 F Pulse Rate 63 56 L Respiratory 18 18 Rate Blood Pressure 156/108 151/99 O2 Sat by Pulse 98 100 Oximetry Medical Decision Making - Medical Decision Making EKG shows sinus bradycardia at 45 bpm HI interval 200 6070 dresses 96 Q-T intervals 421 QTC is 377. Patient's EKG shows slight ST segment elevation V1 and V2 and V3 however this was seen on previous EKGs. I reviewed previous full signs for multiple visits patient is always bradycardic however 45 his lowest see he has previously been 48. Chest x-ray shows an infiltrate in the left base. Patient received [facility] emergency department. Patient had COVID swab and will be contacted later this a COVID test is positive - Lab Data Result diagrams: 06/23/21 09:47 03/03/22 09:47 Lab Results 06/23/21 06/23/21 06/23/21 Range/Units 09:29 09:47 09:47 WBC 11.5 H (3.8-10.6) k/uL RBC 4.94 (4.30-5.90) m/uL Hgb 13.5 (13.0-17.5) gm/dL Hct 41.3 (39.0-53.0) % MCV 83.6 (80.0-100.0) fL MCH 27.3 (25.0-35.0) pg MCHC 32.7 (31.0-37.0) g/dL RDW 14.7 (11.5-15.5) % Plt Count 403 (150-450) k/uL MPV 6.6 Neutrophils % 75 % Lymphocytes % 17 % Monocytes % 4 % Eosinophils % 3 % Basophils % 1 % Neutrophils # 8.6 H (1.3-7.7) k/uL Lymphocytes # 1.9 (1.0-4.8) k/uL Monocytes # 0.4 (0-1.0) k/uL Eosinophils # 0.3 (0-0.7) k/uL Basophils # 0.1 (0-0.2) k/uL Sodium 136 L (137-145) mmol/L Potassium 4.7 (3.5-5.1) mmol/L Chloride 106 (98-107) mmol/L Carbon Dioxide 24 (22-30) mmol/L Anion Gap 6 mmol/L BUN 15 (9-20) mg/dL Creatinine 0.83 (0.66-1.25) mg/dL Est GFR (CKD-EPI)AfAm >90 (>60 ml/min/1.73 sqM) Est GFR (CKD-EPI)NonAf >90 (>60 ml/min/1.73 sqM) Glucose 89 (74-99) mg/dL POC Glucose (mg/dL) 113 H (75-99) mg/dL POC Glu Vulnerability Assessment Analyst ID Leonides De Leon Calcium 8.7 (8.4-10.2) mg/dL Total Bilirubin 0.7 (0.2-1.3) mg/dL AST 37 (17-59) U/L ALT 21 (4-49) U/L Alkaline Phosphatase 127 H (38-126) U/L Troponin I (0.000-0.034) ng/mL Total Protein 7.6 (6.3-8.2) g/dL Albumin 4.1 (3.5-5.0) g/dL Urine Color Urine Appearance (Clear) Urine pH (5.0-8.0) Ur Specific Lopez (1.001-1.035) Urine Protein (Negative) Urine Glucose (UA) (Negative) Urine Ketones (Negative) Urine Blood (Negative) Urine Nitrite (Negative) Urine Bilirubin (Negative) Urine Urobilinogen (<2.0) mg/dL Ur Leukocyte Esterase (Negative) Urine WBC (0-5) /hpf Urine Opiates Screen (NotDetected) Ur Oxycodone Screen (NotDetected) Urine Methadone Screen (NotDetected) Ur Propoxyphene Screen (NotDetected) Ur Barbiturates Screen (NotDetected) U Tricyclic Antidepress (NotDetected) Ur Phencyclidine Scrn (NotDetected) Ur Amphetamines Screen (NotDetected) U Methamphetamines Scrn (NotDetected) U Benzodiazepines Scrn (NotDetected) Urine Cocaine Screen (NotDetected) U Marijuana (THC) Screen (NotDetected) Serum Alcohol <10 mg/dL Coronavirus (PCR) (Not Detectd) 06/23/21 06/23/21 06/23/21 Range/Units 09:47 10:17 12:18 WBC (3.8-10.6) k/uL RBC (4.30-5.90) m/uL Hgb (13.0-17.5) gm/dL Hct (39.0-53.0) % MCV (80.0-100.0) fL MCH (25.0-35.0) pg MCHC (31.0-37.0) g/dL RDW (11.5-15.5) % Plt Count (150-450) k/uL MPV Neutrophils % % Lymphocytes % % Monocytes % % Eosinophils % % Basophils % % Neutrophils # (1.3-7.7) k/uL Lymphocytes # (1.0-4.8) k/uL Monocytes # (0-1.0) k/uL Eosinophils # (0-0.7) k/uL Basophils # (0-0.2) k/uL Sodium (137-145) mmol/L Potassium (3.5-5.1) mmol/L Chloride (98-107) mmol/L Carbon Dioxide (22-30) mmol/L Anion Gap mmol/L BUN (9-20) mg/dL Creatinine (0.66-1.25) mg/dL Est GFR (CKD-EPI)AfAm (>60 ml/min/1.73 sqM) Est GFR (CKD-EPI)NonAf (>60 ml/min/1.73 sqM) Glucose (74-99) mg/dL POC Glucose (mg/dL) (75-99) mg/dL POC Glu Vulnerability Assessment Analyst ID Calcium (8.4-10.2) mg/dL Total Bilirubin (0.2-1.3) mg/dL AST (17-59) U/L ALT (4-49) U/L Alkaline Phosphatase (38-126) U/L Troponin I <0.012 (0.000-0.034) ng/mL Total Protein (6.3-8.2) g/dL Albumin (3.5-5.0) g/dL Urine Color Yellow Urine Appearance Clear (Clear) Urine pH 6.5 (5.0-8.0) Ur Specific Lopez 1.009 (1.001-1.035) Urine Protein Negative (Negative) Urine Glucose (UA) Negative (Negative) Urine Ketones Negative (Negative) Urine Blood Trace H (Negative) Urine Nitrite Negative (Negative) Urine Bilirubin Negative (Negative) Urine Urobilinogen <2.0 (<2.0) mg/dL Ur Leukocyte Esterase Negative (Negative) Urine WBC <1 (0-5) /hpf Urine Opiates Screen Not Detected (NotDetected) Ur Oxycodone Screen Not Detected (NotDetected) Urine Methadone Screen Not Detected (NotDetected) Ur Propoxyphene Screen Not Detected (NotDetected) Ur Barbiturates Screen Not Detected (NotDetected) U Tricyclic Antidepress Not Detected (NotDetected) Ur Phencyclidine Scrn Not Detected (NotDetected) Ur Amphetamines Screen Not Detected (NotDetected) U Methamphetamines Scrn Not Detected (NotDetected) U Benzodiazepines Scrn Not Detected (NotDetected) Urine Cocaine Screen Not Detected (NotDetected) U Marijuana (THC) Screen Detected H (NotDetected) Serum Alcohol mg/dL Coronavirus (PCR) Not Detected (Not Detectd) Disposition Clinical Impression: Pneumonia, Bradycardia Disposition: HOME SELF-CARE Instructions (If sedation given, give patient instructions): Bacterial Pneumonia (ED) Prescriptions: Azithromycin [Zithromax Tri-Lai] 500 mg PO DAILY #3 tab Is patient prescribed a controlled substance at d/c from ED?: No Referrals: Rylie Tyson DO [Primary Care Provider] - 1-2 days Time of Disposition: 12:50
[2021-06-23 09:30] LABS: Glucose,Whole Blood 113 mg/dL (75-99)
[2021-06-23 09:53] LABS: Basophils # (A) 0.1 k/uL (0-0.2); Basophils % (A) 1 %; Eosinophils # (A) 0.3 k/uL (0-0.7); Eosinophils % (A) 3 %; HCT 41.3 % (39.0-53.0); HGB 13.5 gm/dL (13.0-17.5); Lymphocytes # (A) 1.9 k/uL (1.0-4.8); Lymphocytes % (A) 17 %; MCH 27.3 pg (25.0-35.0); MCHC 32.7 g/dL (31.0-37.0); MCV 83.6 fL (80.0-100.0); Mean Platelet Volume 6.6; Monocytes # (A) 0.4 k/uL (0-1.0); Monocytes % (A) 4 %; Neutrophils # (A) 8.6 k/uL (1.3-7.7); Neutrophils % (A) 75 %; Platelet Count 403 k/uL (150-450); RBC 4.94 m/uL (4.30-5.90); RDW 14.7 % (11.5-15.5); WBC 11.5 k/uL (3.8-10.6)
[2021-06-23 10:08] LABS: ALT 21 U/L (4-49); African American GFR (CKD) >90 (>60 ml/min/1.73 sqM); Albumin 4.1 g/dL (3.5-5.0); Alcohol <10 mg/dL; Anion Gap 6 mmol/L; Blood Urea Nitrogen 15 mg/dL (9-20); Calcium 8.7 mg/dL (8.4-10.2); Carbon Dioxide 24 mmol/L (22-30); Chloride 106 mmol/L (98-107); Glucose 89 mg/dL (74-99); Non-African American GFR(CKD) >90 (>60 ml/min/1.73 sqM); Sodium 136 mmol/L (137-145); Total Bilirubin 0.7 mg/dL (0.2-1.3); Total Protein 7.6 g/dL (6.3-8.2)
[2021-06-23 10:09] LABS: AST 37 U/L (17-59); Alkaline Phosphatase 127 U/L (38-126); Potassium 4.7 mmol/L (3.5-5.1)
[2021-06-23 10:26] LABS: Appearance,Urine Clear (Clear); Bilirubin,Urine Negative (Negative); Blood,Urine Trace (Negative); Color,Urine Yellow; Glucose,Urine (UA) Negative (Negative); Ketones,Urine Negative (Negative); Leukocyte Esterase,Urine Negative (Negative); Nitrite,Urine Negative (Negative); PH, Urine 6.5 (5.0-8.0); Protein,Urine Negative (Negative); Specific Gravity,Urine 1.009 (1.001-1.035); Urobilinogen,Urine <2.0 mg/dL (<2.0); WBC,Urine <1 /hpf (0-5)
--- NOTE | 2021-06-23 10:30 | XR ---
EXAMINATION TYPE: XR chest 2V DATE OF EXAM: 06/23/2021 COMPARISON: 01/21/2021 INDICATION: Altered mental status, dizziness TECHNIQUE: Frontal and lateral views of the chest are obtained. FINDINGS: The heart size is normal. The pulmonary vasculature is normal. Some minimal infiltrate may be at the left costophrenic angle. Correlate for atelectasis and pneumoni a.. IMPRESSION: 1. Subtle left lower lobe infiltrate. Correlate for atelectasis and pneumonia. Follow-up can be perfo rmed.
[2021-06-23 10:45] LABS: Amphetamine Screen,Urine Not Detected (NotDetected); Barbiturate Screen,Urine Not Detected (NotDetected); Benzodiazepines Screen,Urine Not Detected (NotDetected); Cocaine Screen,Urine Not Detected (NotDetected); Methadone Screen, Urine Not Detected (NotDetected); Opiate Screen,Urine Not Detected (NotDetected); Phencyclidine Screen,Urine Not Detected (NotDetected); Tricyclic Antidepressant,Urine Not Detected (NotDetected); Urn Cannabinoid Scrn Detected (NotDetected)
[2021-06-23 10:46] LABS: Oxycodone Screen, Urine Not Detected (NotDetected)
[2021-06-23] MEDS ORDERED: cefTRIAXone IN SWFI 1,000 MG/10 ML SYRINGE IVP STA (12:22)
[2021-06-23 13:09] VITALS: BP 149/93; PULSE 57
== END 2021-06-23 13:08 | disposition home or self-care (01) ==
LOC: EC 09:06
DX: J18.9 Pneumonia, unspecified organism (principal); R00.1 Bradycardia, unspecified; I10 Essential (primary) hypertension; J44.9 Chronic obstructive pulmonary disease, unspecified; G40.909 Epilepsy, unspecified, not intractable, without status epilepticus; M19.90 Unspecified osteoarthritis, unspecified site; F32.A Depression, unspecified; F41.9 Anxiety disorder, unspecified; F12.90 Cannabis use, unspecified, uncomplicated; Z79.82 Long term (current) use of aspirin; Z79.899 Other long term (current) drug therapy; Z20.822 Contact with and (suspected) exposure to COVID-19
CPT/HCPCS: 36415; 93005; 80053; 84484; 85025; 81001; 80306; 87635; 71046; 99284; 96374; 96361; G0480; J0696; 80320

== ENCOUNTER → 2021-07-15 | Outpatient (CLI) | payer OTHER ==
--- NOTE | 2021-07-16 06:24 | ECHOF ---
Referral Reason:I20.9 ANGINA MEASUREMENTS -------- HEIGHT: 180.3 cm WEIGHT: 70.3 kg BP: RVIDd: 3.6 cm (< 3.3) IVSd: 1.1 cm (0.6 - 1.1) LVIDd: 3.7 cm (3.9 - 5.3) LVPWd: 1.1 cm (0.6 - 1.1) IVSs: 1.6 cm LVIDs: 2.2 cm LVPWs: 1.7 cm LAESV Index (A-L): 24.09 ml/m Ao Diam: 3.3 cm (2.0 - 3.7) AV Cusp: 2.1 cm (1.5 - 2.6) LA Diam: 3.9 cm (2.7 - 3.8) MV EXCURSION: 20.043 mm (> 18.000) MV EF SLOPE: 104 mm/s (70 - 150) EPSS: 0.5 cm MV E Spenser: 0.73 m/s MV DecT: 202 ms MV A Spenser: 0.85 m/s MV E/A Ratio: 0.87 FINDINGS -------- Sinus rhythm. This was a technically adequate study. The left ventricular size is normal. There is borderline concentric left ventricular hypertrophy. Overall left ventricular systolic function is low-normal with, an EF between 50 - 55 %. The diasto lic filling pattern is normal for the age of the patient 8.22. Mid anterior LV wall motion is hypok inetic. Mid anteroseptal LV wall motion is hypokinetic. The right ventricle is mildly enlarged. Normal LA size by volume 22+/-6 ml/m2. The right atrial size is normal. Interatrial and interventricular septum intact. The aortic valve is trileaflet, and appears structurally normal. No aortic stenosis or regurgitation. The mitral valve is normal. There is trace mitral regurgitation. The tricuspid valve appears structurally normal. Trace tricuspid regurgitation present. Unable to estimate RVSP due to inadequate TR jet spectral doppler profile. There is no pulmonic regurgitation present. The aortic root size is normal. Normal inferior vena cava with normal inspiratory collapse consistent with estimated right atrial pre ssure of 5 mmHg. There is no pericardial effusion. CONCLUSIONS -------- 1. There is borderline concentric left ventricular hypertrophy. 2. Overall left ventricular systolic function is low-normal with, an EF between 50 - 55 %. 3. Mid anterior LV wall motion is hypokinetic. 4. Mid anteroseptal LV wall motion is hypokinetic. 5. The right ventricle is mildly enlarged. 6. The aortic valve is trileaflet, and appears structurally normal. No aortic stenosis or regurgitati on. 7. There is trace mitral regurgitation. 8. Trace tricuspid regurgitation present. [employer]: Vy Giraldo RDCS
== END | disposition home or self-care (01) ==
LOC: RADECHMAIN 14:33
PROVIDERS: ATTEND Internal Medicine
DX: I08.1 Rheumatic disorders of both mitral and tricuspid valves (principal)
CPT/HCPCS: 93306

== ENCOUNTER 2022-08-07 13:20 | Emergency (ER) | payer OTHER ==
[2022-08-07 13:32] VITALS: RESP 18
--- NOTE | 2022-08-07 14:18 | ED ---
Skin/Abscess/FB HPI - General Chief complaint: Skin/Abscess/Foreign Body Stated complaint: rash Time Seen by Provider: 08/07/22 13:37 Source: patient, RN notes reviewed Mode of arrival: ambulatory Limitations: no limitations - History of Present Illness Initial comments: 51-year-old male presents emergency Department chief complaint itchy rash. Patient states she was moving some brush states that he believes he got into some poisoning sumac. Patient states he's been using alcohol and hydrocortisone cream. Patient states that there is a helping. He states is old records are discomfort. Denies any difficulty swallowing or difficulty breathing - Related Data Home Medications Medication Instructions Recorded Confirmed Aspirin EC [Ecotrin Low Dose] 81 mg PO DAILY 10/30/18 06/23/21 Multivitamins, Thera [Multivitamin 1 tab PO DAILY 10/30/18 06/23/21 (formulary)] cloNIDine HCL [Catapres] 0.1 mg PO BID 10/30/18 06/23/21 Previous Rx's Medication Instructions Recorded Azithromycin [Zithromax Tri-Lai] 500 mg PO DAILY #3 tab 06/23/21 diphenhydrAMINE & Zinc Cream 1 applic TOPICAL TID #28 gm 08/07/22 [Benadryl Cream] hydrOXYzine HCL [Atarax] 25 mg PO TID PRN #15 tab 08/07/22 predniSONE 10 mg PO DIRECTED #30 tab 08/07/22 Allergies Allergy/AdvReac Type Severity Reaction Status Date / Time No Known Allergies Allergy Verified 08/07/22 13:32 Review of Systems ROS Statement: Those systems with pertinent positive or pertinent negative responses have been documented in the HPI. ROS Other: All systems not noted in ROS Statement are negative. Past Medical History Past Medical History: Asthma, COPD, CVA/TIA, Hypertension, Osteoarthritis (OA), Seizure Disorder Additional Past Medical History / Comment(s): recent episodes of vomiting blood, hx of head injury r/t fall from tree, migraines, spontaneous pneumothorax, states TIA x3, some short term memory loss History of Any Multi-Drug Resistant Organisms: None Reported Past Surgical History: No Surgical Hx Reported Additional Past Surgical History / Comment(s): chest tube insertion Past Anesthesia/Blood Transfusion Reactions: No Reported Reaction Past Psychological History: Anxiety, Depression Smoking Status: Never smoker Past Alcohol Use History: Rare Past Drug Use History: Marijuana - Past Family History Mother Family Medical History: No Reported History General Exam Limitations: no limitations General appearance: alert, in no apparent distress Head exam: Present: atraumatic, normocephalic, normal inspection Eye exam: Present: normal appearance, PERRL, EOMI. Absent: scleral icterus, conjunctival injection, periorbital swelling ENT exam: Present: normal exam, normal oropharynx, mucous membranes moist Neck exam: Present: normal inspection, full ROM. Absent: tenderness, meningismus, lymphadenopathy Respiratory exam: Present: normal lung sounds bilaterally. Absent: respiratory distress, wheezes, rales, rhonchi, stridor Cardiovascular Exam: Present: regular rate, normal rhythm, normal heart sounds. Absent: systolic murmur, diastolic murmur, rubs, gallop, clicks Skin exam: Present: warm, dry, intact, normal color, rash (Bilateral arms, face erythematous rash with small vesicular area) Course Vital Signs 08/07/22 13:29 Temperature 98.2 F Pulse Rate 52 L Respiratory 18 Rate Blood Pressure 152/94 O2 Sat by Pulse 99 Oximetry Medical Decision Making - Medical Decision Making Was pt. sent in by a medical professional or institution (SHAUN Alfaro, LASER BEAM MACHINE OPERATOR, urgent care, hospital, or custodial...) When possible be specific @ -No Did you speak to anyone other than the patient for history (EMS, parent, family, police, friend...)? What history was obtained from this source @ -No Did you review nursing and triage notes (agree or disagree)? Why? @ -I reviewed and agree with nursing and triage notes Were old charts reviewed (outside hosp., previous admission, EMS record, old EKG, old radiological studies, urgent care reports/EKG's, custodial records)? Report findings @ -No old charts were reviewed Differential Diagnosis (chest pain, altered mental status, abdominal pain women, abdominal pain men, vaginal bleeding, weakness, fever, dyspnea, syncope, headache, dizziness, GI bleed, back pain, seizure, CVA, palpatations, mental health, musculoskeletal)? @ -Poison siomara, contact dermatitis, herpes zoster, ALLERGIC reaction, this is is not conclusive EKG interpreted by me (3pts min.). @ -None X-rays interpreted by me (1pt min.). @ -None done CT interpreted by me (1pt min.). @ -None done U/S interpreted by me (1pt. min.). @ -None done What testing was considered but not performed or refused? (CT, X-rays, U/S, labs)? Why? @ -None What meds were considered but not given or refused? Why? @ -None Did you discuss the management of the patient with other professionals (professionals i.e. Dr., PA, LASER BEAM MACHINE OPERATOR, lab, RT, psych nurse, director social service, hardboard supervisor, teacher, chief contract officer, case management social worker)? Give summary @ -No Was smoking cessation discussed for >3mins.? @ -No Was critical care preformed (if so, how long)? @ -No Were there social determinants of health that impacted care today? How? (Homelessness, low income, unemployed, alcoholism, drug addiction, transportation, low edu. Level, literacy, decrease access to med. care, group home, rehab)? @ -No Was there de-escalation of care discussed even if they declined (Discuss DNR or withdrawal of care, Hospice)? DNR status @ -No What co-morbidities impacted this encounter? (DM, HTN, Smoking, COPD, CAD, Cancer, CVA, ARF, Chemo, Hep., AIDS, mental health diagnosis, sleep apnea, morbid obesity)? @ -None Was patient admitted / discharged? Hospital course, mention meds given and route, prescriptions, significant lab abnormalities, going to OR and other pertinent info. @ -Discharge patient has a rash consistent with contact dermatitis mostly from poison siomara or poison sumac. Patient discharged on prednisone, Atarax and Benadryl cream. Undiagnosed new problem with uncertain prognosis? @ -No Drug Therapy requiring intensive monitoring for toxicity (Heparin, Nitro, Insulin, Cardizem)? @ -No Were any procedures done? @ -No Diagnosis/symptom? @ -Poison sumac Acute, or Chronic, or Acute on Chronic? @ -Acute Uncomplicated (without systemic symptoms) or Complicated (systemic symptoms)? @ -Uncomplicated Side effects of treatment? @ -No Exacerbation, Progression, or Severe Exacerbation? @ -No Poses a threat to life or bodily function? How? (Chest pain, [place], [place], pneumonia, PE, COPD, DKA, ARF, appy, cholecystitis, CVA, Diverticulitis, Homicidal, Suicidal, threat to staff... and all critical care pts) @ -No Disposition Clinical Impression: Contact dermatitis, Poison sumac Disposition: HOME SELF-CARE Condition: Stable Instructions (If sedation given, give patient instructions): Poison Siomara (ED) Additional Instructions: Please return to the Emergency Department if symptoms worsen or any other concerns. Prescriptions: hydrOXYzine HCL [Atarax] 25 mg PO TID PRN #15 tab PRN Reason: itching diphenhydrAMINE & Zinc Cream [Benadryl Cream] 1 applic TOPICAL TID #28 gm predniSONE 10 mg PO DIRECTED #30 tab Is patient prescribed a controlled substance at d/c from ED?: No Referrals: Chaparro Jessica MD [Primary Care Provider] - 1-2 days Time of Disposition: 14:18
[2022-08-07 14:38] VITALS: BP 168/62; PULSE 50; TEMP 97.6
== END 2022-08-07 14:40 | disposition home or self-care (01) ==
LOC: EC 13:20
DX: L23.7 Allergic contact dermatitis due to plants, except food (principal); J44.9 Chronic obstructive pulmonary disease, unspecified; I10 Essential (primary) hypertension; M19.90 Unspecified osteoarthritis, unspecified site; Z86.73 Personal history of transient ischemic attack (TIA), and cerebral infarction without residual deficits; F41.9 Anxiety disorder, unspecified; F32.A Depression, unspecified; F12.90 Cannabis use, unspecified, uncomplicated; Z79.82 Long term (current) use of aspirin; Z79.899 Other long term (current) drug therapy
CPT/HCPCS: 99282

== ENCOUNTER 2022-09-02 09:04 | Emergency (ER) | payer OTHER ==
[2022-09-02 09:10] VITALS: TEMP 97.3
--- NOTE | 2022-09-02 09:22 | ED ---
Skin/Abscess/FB HPI - General Chief complaint: Skin/Abscess/Foreign Body Stated complaint: rash on arms Time Seen by Provider: 09/02/22 09:14 Source: patient, RN notes reviewed Mode of arrival: ambulatory Limitations: no limitations - History of Present Illness Initial comments: 51-year-old male presents emergency Department chief complaint of rash. Patient to see senior he recently for similar rash after being outside in contact with poison siomara. He states his dementia did clear up after the prednisone last sent. Patient offers no complaints of difficulty breathing or difficulty swallowing. - Related Data Home Medications Medication Instructions Recorded Confirmed Aspirin EC [Ecotrin Low Dose] 81 mg PO DAILY 10/30/18 06/23/21 Multivitamins, Thera [Multivitamin 1 tab PO DAILY 10/30/18 06/23/21 (formulary)] cloNIDine HCL [Catapres] 0.1 mg PO BID 10/30/18 06/23/21 Previous Rx's Medication Instructions Recorded Azithromycin [Zithromax Tri-Lai] 500 mg PO DAILY #3 tab 06/23/21 diphenhydrAMINE & Zinc Cream 1 applic TOPICAL TID #28 gm 08/07/22 [Benadryl Cream] predniSONE 10 mg PO DIRECTED #30 tab 08/07/22 hydrOXYzine HCL [Atarax] 25 mg PO TID PRN #15 tab 09/02/22 predniSONE 10 mg PO DIRECTED #40 tab 09/02/22 Allergies Allergy/AdvReac Type Severity Reaction Status Date / Time No Known Allergies Allergy Verified 09/02/22 09:09 Review of Systems ROS Statement: Those systems with pertinent positive or pertinent negative responses have been documented in the HPI. ROS Other: All systems not noted in ROS Statement are negative. Past Medical History Past Medical History: Asthma, COPD, CVA/TIA, Hypertension, Osteoarthritis (OA), Seizure Disorder Additional Past Medical History / Comment(s): recent episodes of vomiting blood, hx of head injury r/t fall from tree, migraines, spontaneous pneumothorax, states TIA x3, some short term memory loss History of Any Multi-Drug Resistant Organisms: None Reported Past Surgical History: No Surgical Hx Reported Additional Past Surgical History / Comment(s): chest tube insertion Past Anesthesia/Blood Transfusion Reactions: No Reported Reaction Past Psychological History: Anxiety, Depression Smoking Status: Never smoker Past Alcohol Use History: Rare Past Drug Use History: Marijuana - Past Family History Mother Family Medical History: No Reported History General Exam Limitations: no limitations General appearance: alert, in no apparent distress Head exam: Present: atraumatic, normocephalic, normal inspection Respiratory exam: Present: normal lung sounds bilaterally. Absent: respiratory distress, wheezes, rales, rhonchi, stridor Cardiovascular Exam: Present: regular rate, normal rhythm, normal heart sounds. Absent: systolic murmur, diastolic murmur, rubs, gallop, clicks Neurological exam: Present: alert, oriented X3 Skin exam: Present: warm, dry, intact, normal color, rash Course Vital Signs 09/02/22 09/02/22 09:07 09:40 Temperature 97.3 F L Pulse Rate 63 66 Respiratory 17 18 Rate Blood Pressure 150/97 155/99 O2 Sat by Pulse 98 97 Oximetry Medical Decision Making - Medical Decision Making Was pt. sent in by a medical professional or institution (, PA, HELP DESK TEAM LEADER, urgent care, hospital, or correction...) When possible be specific @ -No Did you speak to anyone other than the patient for history (EMS, parent, family, police, friend...)? What history was obtained from this source @ -No Did you review nursing and triage notes (agree or disagree)? Why? @ -I reviewed and agree with nursing and triage notes Were old charts reviewed (outside hosp., previous admission, EMS record, old EKG, old radiological studies, urgent care reports/EKG's, correction records)? Report findings @ -Reviewed prior records including recent treatment for rash Differential Diagnosis (chest pain, altered mental status, abdominal pain women, abdominal pain men, vaginal bleeding, weakness, fever, dyspnea, syncope, headache, dizziness, GI bleed, back pain, seizure, CVA, palpatations, mental health, musculoskeletal)? @ -ALLERGIC reaction, contact dermatitis, medication reaction, this list is not all inclusive EKG interpreted by me (3pts min.). @ -None X-rays interpreted by me (1pt min.). @ -None done CT interpreted by me (1pt min.). @ -None done U/S interpreted by me (1pt. min.). @ -None done What testing was considered but not performed or refused? (CT, X-rays, U/S, labs)? Why? @ -None What meds were considered but not given or refused? Why? @ -None Did you discuss the management of the patient with other professionals (pr ofessionals i.e. , PA, HELP DESK TEAM LEADER, lab, RT, psych nurse, social work therapist, franchise broker, teacher, learning and development officer, case management manager)? Give summary @ -No Was smoking cessation discussed for >3mins.? @ -No Was critical care preformed (if so, how long)? @ -No Were there social determinants of health that impacted care today? How? (Homelessness, low income, unemployed, alcoholism, drug addiction, transportation, low edu. Level, literacy, decrease access to med. care, prison, rehab)? @ -No Was there de-escalation of care discussed even if they declined (Discuss DNR or withdrawal of care, Hospice)? DNR status @ -No What co-morbidities impacted this encounter? (DM, HTN, Smoking, COPD, CAD, Cancer, CVA, ARF, Chemo, Hep., AIDS, mental health diagnosis, sleep apnea, morbid obesity)? @ -None Was patient admitted / discharged? Hospital course, mention meds given and route, prescriptions, significant lab abnormalities, going to OR and other pertinent info. @ -Discharge patient appears to have conjunctivitis possible poison siomara patient was discharged on prednisone, Atarax. Undiagnosed new problem with uncertain prognosis? @ -No Drug Therapy requiring intensive monitoring for toxicity (Heparin, Nitro, Insulin, Cardizem)? @ -No Were any procedures done? @ -No Diagnosis/symptom? @ -Contact dermatitis Acute, or Chronic, or Acute on Chronic? @ -Acute Uncomplicated (without systemic symptoms) or Complicated (systemic symptoms)? @ -Uncomplicated Side effects of treatment? @ -No Exacerbation, Progression, or Severe Exacerbation? @ -No Poses a threat to life or bodily function? How? (Chest pain, [place], [place], pneumonia, PE, COPD, DKA, ARF, appy, cholecystitis, CVA, Diverticulitis, Homicidal, Suicidal, threat to staff... and all critical care pts) @ -No Disposition Clinical Impression: Contact dermatitis Disposition: HOME SELF-CARE Condition: Stable Instructions (If sedation given, give patient instructions): Contact Dermatitis (ED), Poison Siomara (ED) Additional Instructions: Please return to the Emergency Department if symptoms worsen or any other concerns. Prescriptions: hydrOXYzine HCL [Atarax] 25 mg PO TID PRN #15 tab PRN Reason: itching predniSONE 10 mg PO DIRECTED #40 tab Is patient prescribed a controlled substance at d/c from ED?: No Referrals: Chaparro Jessica MD [Primary Care Provider] - 1-2 days Time of Disposition: 09:22
[2022-09-02 09:45] VITALS: BP 155/99; PULSE 66; RESP 18
== END 2022-09-02 09:45 | disposition home or self-care (01) ==
LOC: EC 09:04
DX: L25.9 Unspecified contact dermatitis, unspecified cause (principal); J44.9 Chronic obstructive pulmonary disease, unspecified; I10 Essential (primary) hypertension; M19.90 Unspecified osteoarthritis, unspecified site; F41.9 Anxiety disorder, unspecified; F32.A Depression, unspecified; F12.90 Cannabis use, unspecified, uncomplicated; Z86.73 Personal history of transient ischemic attack (TIA), and cerebral infarction without residual deficits; Z79.82 Long term (current) use of aspirin; Z79.1 Long term (current) use of non-steroidal anti-inflammatories (NSAID); Z79.899 Other long term (current) drug therapy
CPT/HCPCS: 99283

== ENCOUNTER 2023-01-01 11:53 | Emergency (ER) | payer OTHER ==
[2023-01-01 12:08] VITALS: RESP 18; TEMP 97.8
--- NOTE | 2023-01-01 12:28 | ED ---
General Adult HPI - General Chief complaint: Syncope Stated complaint: Syncope Time Seen by Provider: 01/01/23 11:59 Source: EMS Mode of arrival: EMS Limitations: no limitations - History of Present Illness Initial comments: The patient is a 52-year-old gentleman with a history of anxiety and hypertension but is otherwise healthy presents emergency room with diffuse paresthesias generalized weakness that started 2 hours prior to arrival in the emergency room. The patient was found to be hyperventilating and short of breath when his daughter came to the house to check on him. She called 911. The patient states that his whole body feels very weak and he is concerned he had a stroke. He denies any focal deficits on one side. He feels very fatigued and has diffuse pins and needles over the head and face. Patient denies ingesting palpitations or shortness of breath. He denies any recent cough congestion fevers or upper respiratory infections. Denies any drug use. Denies any heavy alcohol use. He does smoke marijuana. Patient is unsure if he had a history of a TIA or stroke in the past. He had been on metoprolol the past but this was discontinued as his blood pressure has been good. - Related Data Home Medications Medication Instructions Recorded Confirmed Aspirin EC [Ecotrin Low Dose] 81 mg PO DAILY 10/30/18 06/23/21 Multivitamins, Thera [Multivitamin 1 tab PO DAILY 10/30/18 06/23/21 (formulary)] cloNIDine HCL [Catapres] 0.1 mg PO BID 10/30/18 06/23/21 Previous Rx's Medication Instructions Recorded Azithromycin [Zithromax Tri-Lai] 500 mg PO DAILY #3 tab 06/23/21 diphenhydrAMINE & Zinc Cream 1 applic TOPICAL TID #28 gm 08/07/22 [Benadryl Cream] predniSONE 10 mg PO DIRECTED #30 tab 08/07/22 hydrOXYzine HCL [Atarax] 25 mg PO TID PRN #15 tab 09/02/22 predniSONE 10 mg PO DIRECTED #40 tab 09/02/22 Allergies Allergy/AdvReac Type Severity Reaction Status Date / Time No Known Allergies Allergy Verified 09/02/22 09:09 Review of Systems ROS Statement: Those systems with pertinent positive or pertinent negative responses have been documented in the HPI. ROS Other: All systems not noted in ROS Statement are negative. Past Medical History Past Medical History: Asthma, COPD, CVA/TIA, Hypertension, Osteoarthritis (OA), Seizure Disorder Additional Past Medical History / Comment(s): recent episodes of vomiting blood, hx of head injury r/t fall from tree, migraines, spontaneous pneumothorax, states TIA x3, some short term memory loss History of Any Multi-Drug Resistant Organisms: None Reported Past Surgical History: No Surgical Hx Reported Additional Past Surgical History / Comment(s): chest tube insertion Past Anesthesia/Blood Transfusion Reactions: No Reported Reaction Past Psychological History: Anxiety, Depression Smoking Status: Never smoker Past Alcohol Use History: Rare Past Drug Use History: Marijuana - Past Family History Mother Family Medical History: No Reported History General Exam Limitations: no limitations General appearance: alert, anxious Head exam: Present: atraumatic Eye exam: Present: normal appearance, PERRL, EOMI Pupils: Present: normal accommodation ENT exam: Present: normal exam Neck exam: Present: normal inspection Respiratory exam: Present: normal lung sounds bilaterally Cardiovascular Exam: Present: normal rhythm, bradycardia GI/Abdominal exam: Present: soft, other (No Tenderness) Extremities exam: Present: normal inspection, full ROM Neurological exam: Present: alert, normal gait, other (patient initially occur range of motion and strength of the upper and lower extremities bilaterally. He was not bending in the effort to move the extremities. On reevaluation patient moving extremities without limitations.) Psychiatric exam: Present: anxious Skin exam: Present: warm, dry Course Vital Signs 01/01/23 01/01/23 12:02 15:32 Temperature 97.8 F Pulse Rate 56 L 54 L Respiratory 18 18 Rate Blood Pressure 139/84 156/97 O2 Sat by Pulse 99 97 Oximetry - Reevaluation(s) Reevaluation #1: 01/01/23 1401 On reevaluation patient is much calmer and emergency room. I discussed lab and imaging results with the patient. Head CT shows chronic changes no acute changes. NIH completed by me was 83 however this is limited due to patient not properly following commands and having little effort with movement of the extremities. He on reevaluation without formal testing was moving all extremities without limitation or weakness. Again he had tolerated food and fluids in the emergency room. Reevaluation he is ambulating with a steady gait and without weakness. There is no focal deficits on multiple re-evaluations. Spoke with admitting ED physician Dr. Vigil regarding the patient symptoms workup and neurological findings. This time there is no changes and patient is stable to follow up as an outpatient. I did discuss signs return to the emergency room the patient understands and agrees to this plan. EKG Findings - EKG Comments: EKG Findings:: EKG shows sinus bakery rate of 51 bpm and no acute ST segment elevation or T-wave changes Medical Decision Making - Medical Decision Making Was pt. sent in by a medical professional or institution (, SHAUN, [employer]400 DEVELOPER, urgent care, hospital, or [facility]...) When possible be specific @ -[No] Did you speak to anyone other than the patient for history (EMS, parent, family, police, friend...)? What history was obtained from this source @ -[No] Did you review nursing and triage notes (agree or disagree)? Why? @ -[I reviewed and agree with nursing and triage notes] Were old charts reviewed (outside hosp., previous admission, EMS record, old EKG, old radiological studies, urgent care reports/EKG's, [facility] records)? Report findings @ -[yes old charts were reviewed] Differential Diagnosis (chest pain, altered mental status, abdominal pain women, abdominal pain men, vaginal bleeding, weakness, fever, dyspnea, syncope, heada malika, dizziness, GI bleed, back pain, seizure, CVA, palpatations, mental health, musculoskeletal)? @ -[anxiety, ams, seizure, parasethesias EKG interpreted by me (3pts min.). @ -EKG shows sinus bradycardia at 51bpm, no acute ST T segment elevation X-rays interpreted by me (1pt min.). @ -No pneumothorax or other acute changes seen CT interpreted by me (1pt min.). @ -Chronic changes noted mass or hemorrhage or other acute changes U/S interpreted by me (1pt. min.). @ -[None done] What testing was considered but not performed or refused? (CT, X-rays, U/S, labs)? Why? @ -[None] What meds were considered but not given or refused? Why? @ -[None] Did you discuss the management of the patient with other professionals (professionals i.e. SHAUN Alfaro, [employer] DEVELOPER, lab, RT, psych nurse, social service director, modeling manager, teacher, chemistry technical officer, case making machine operator)? Give summary @ -Discussed patient's symptoms are The management with attending ED physician Dr. Vigil today Was smoking cessation discussed for >3mins.? @ -[No] Was critical care preformed (if so, how long)? @ -[No] Were there social determinants of health that impacted care today? How? (Homelessness, low income, unemployed, alcoholism, drug addiction, transportation, low edu. Level, literacy, decrease access to med. care, [facility], rehab)? @ -[No] Was there de-escalation of care discussed even if they declined (Discuss DNR or withdrawal of care, Hospice)? DNR status @ -[No] What co-morbidities impacted this encounter? (DM, HTN, Smoking, COPD, CAD, Cancer, CVA, ARF, Chemo, Hep., AIDS, mental health diagnosis, sleep apnea, morbid obesity)? @ -Hypertension Was patient admitted / discharged? Hospital course, mention meds given and route, prescriptions, significant lab abnormalities, going to OR and other pertinent info. @ -Patient is stable to follow up as an outpatient. There is no acute changes seen on head CT was ordered lab results. Patient is neurologically intact with no focal deficits. On reevaluation he is ambulating without any weakness in with a steady gait. He understands and agrees to treatment and discharged him. He understands follow up with the scan signs return to the emergency room. Undiagnosed new problem with uncertain prognosis? @ -[No] Drug Therapy requiring intensive monitoring for toxicity (Heparin, Nitro, Insulin, Cardizem)? @ -[No] Were any procedures done? @ -[No] Diagnosis/symptom? @ -Paresthesias, anxiety, near syncope Acute, or Chronic, or Acute on Chronic? @ -Acute Uncomplicated (without systemic symptoms) or Complicated (systemic symptoms)? @ -[default] Side effects of treatment? @ -[No] Exacerbation, Progression, or Severe Exacerbation? @ -[No] Poses a threat to life or bodily function? How? (Chest pain, [place], [place], pneumonia, PE, COPD, DKA, ARF, appy, cholecystitis, CVA, Diverticulitis, Homicidal, Suicidal, threat to staff... and all critical care pts) @ -[No] - Lab Data Result diagrams: 01/01/23 12:30 01/01/23 12:30 Lab Results 01/01/23 01/01/23 01/01/23 Range/Units 12:30 12:30 12:30 WBC 9.6 (3.8-10.6) k/uL RBC 5.27 (4.30-5.90) m/uL Hgb 14.9 (13.0-17.5) gm/dL Hct 45.6 (39.0-53.0) % MCV 86.6 (80.0-100.0) fL MCH 28.3 (25.0-35.0) pg MCHC 32.7 (31.0-37.0) g/dL RDW 14.1 (11.5-15.5) % Plt Count 390 (150-450) k/uL MPV 6.5 Neutrophils % 74 % Lymphocytes % 19 % Monocytes % 4 % Eosinophils % 1 % Basophils % 0 % Neutrophils # 7.1 (1.3-7.7) k/uL Lymphocytes # 1.8 (1.0-4.8) k/uL Monocytes # 0.4 (0-1.0) k/uL Eosinophils # 0.1 (0-0.7) k/uL Basophils # 0.0 (0-0.2) k/uL PT 10.8 (9.0-12.0) sec INR 1.0 (<1.2) APTT 23.3 (22.0-30.0) sec Sodium 139 (137-145) mmol/L Potassium 4.3 (3.5-5.1) mmol/L Chloride 106 (98-107) mmol/L Carbon Dioxide 24 (22-30) mmol/L Anion Gap 9 mmol/L BUN 17 (9-20) mg/dL Creatinine 0.95 (0.66-1.25) mg/dL Est GFR (CKD-EPI)AfAm >90 (>60 ml/min/1.73 sqM) Est GFR (CKD-EPI)NonAf >90 (>60 ml/min/1.73 sqM) Glucose 96 (74-99) mg/dL Calcium 9.8 (8.4-10.2) mg/dL Total Bilirubin 0.4 (0.2-1.3) mg/dL AST 28 (17-59) U/L ALT 19 (4-49) U/L Alkaline Phosphatase 136 H (38-126) U/L Troponin I (0.000-0.034) ng/mL Total Protein 8.0 (6.3-8.2) g/dL Albumin 4.5 (3.5-5.0) g/dL Urine Color Urine Appearance (Clear) Urine pH (5.0-8.0) Ur Specific [place] (1.001-1.035) Urine Protein (Negative) Urine Glucose (UA) (Negative) Urine Ketones (Negative) Urine Blood (Negative) Urine Nitrite (Negative) Urine Bilirubin (Negative) Urine Urobilinogen (<2.0) mg/dL Ur Leukocyte Esterase (Negative) Urine Opiates Screen (NotDetected) Ur Oxycodone Screen (NotDetected) Urine Methadone Screen (NotDetected) Ur Propoxyphene Screen (NotDetected) Ur Barbiturates Screen (NotDetected) U Tricyclic Antidepress (NotDetected) Ur Phencyclidine Scrn (NotDetected) Ur Amphetamines Screen (NotDetected) U Methamphetamines Scrn (NotDetected) U Benzodiazepines Scrn (NotDetected) Urine Cocaine Screen (NotDetected) U Marijuana (THC) Screen (NotDetected) 01/01/23 01/01/23 Range/Units 12:30 13:22 WBC (3.8-10.6) k/uL RBC (4.30-5.90) m/uL Hgb (13.0-17.5) gm/dL Hct (39.0-53.0) % MCV (80.0-100.0) fL MCH (25.0-35.0) pg MCHC (31.0-37.0) g/dL RDW (11.5-15.5) % Plt Count (150-450) k/uL MPV Neutrophils % % Lymphocytes % % Monocytes % % Eosinophils % % Basophils % % Neutrophils # (1.3-7.7) k/uL Lymphocytes # (1.0-4.8) k/uL Monocytes # (0-1.0) k/uL Eosinophils # (0-0.7) k/uL Basophils # (0-0.2) k/uL PT (9.0-12.0) sec INR (<1.2) APTT (22.0-30.0) sec Sodium (137-145) mmol/L Potassium (3.5-5.1) mmol/L Chloride (98-107) mmol/L Carbon Dioxide (22-30) mmol/L Anion Gap mmol/L BUN (9-20) mg/dL Creatinine (0.66-1.25) mg/dL Est GFR (CKD-EPI)AfAm (>60 ml/min/1.73 sqM) Est GFR (CKD-EPI)NonAf (>60 ml/min/1.73 sqM) Glucose (74-99) mg/dL Calcium (8.4-10.2) mg/dL Total Bilirubin (0.2-1.3) mg/dL AST (17-59) U/L ALT (4-49) U/L Alkaline Phosphatase (38-126) U/L Troponin I <0.012 (0.000-0.034) ng/mL Total Protein (6.3-8.2) g/dL Albumin (3.5-5.0) g/dL Urine Color Colorless Urine Appearance Clear (Clear) Urine pH 7.5 (5.0-8.0) Ur Specific [place] 1.005 (1.001-1.035) Urine Protein Negative (Negative) Urine Glucose (UA) Negative (Negative) Urine Ketones Negative (Negative) Urine Blood Negative (Negative) Urine Nitrite Negative (Negative) Urine Bilirubin Negative (Negative) Urine Urobilinogen <2.0 (<2.0) mg/dL Ur Leukocyte Esterase Negative (Negative) Urine Opiates Screen Not Detected (NotDetected) Ur Oxycodone Screen Not Detected (NotDetected) Urine Methadone Screen Not Detected (NotDetected) Ur Propoxyphene Screen Not Detected (NotDetected) Ur Barbiturates Screen Not Detected (NotDetected) U Tricyclic Antidepress Not Detected (NotDetected) Ur Phencyclidine Scrn Not Detected (NotDetected) Ur Amphetamines Screen Not Detected (NotDetected) U Methamphetamines Scrn Not Detected (NotDetected) U Benzodiazepines Scrn Not Detected (NotDetected) Urine Cocaine Screen Not Detected (NotDetected) U Marijuana (THC) Screen Detected H (NotDetected) - EKG Data -: EKG Interpreted by Me - Radiology Data Radiology results: report reviewed, image reviewed Disposition Clinical Impression: Paresthesia, Near syncope, Anxiety, Bradycardia, Hyperventilation Disposition: HOME SELF-CARE Condition: Good Instructions (If sedation given, give patient instructions): Hyperventilation (ED), Bradycardia (ED), Near Syncope (ED) Is patient prescribed a controlled substance at d/c from ED?: No Referrals: Chaparro Jessica MD [Primary Care Provider] - 1-2 days Time of Disposition: 15:12 (follow up with primary care physician)
[2023-01-01 12:35] LABS: Basophils % (A) 0 %; Eosinophils # (A) 0.1 k/uL (0-0.7); Eosinophils % (A) 1 %; HCT 45.6 % (39.0-53.0); HGB 14.9 gm/dL (13.0-17.5); Lymphocytes # (A) 1.8 k/uL (1.0-4.8); Lymphocytes % (A) 19 %; MCH 28.3 pg (25.0-35.0); MCHC 32.7 g/dL (31.0-37.0); MCV 86.6 fL (80.0-100.0); Mean Platelet Volume 6.5; Monocytes # (A) 0.4 k/uL (0-1.0); Monocytes % (A) 4 %; Neutrophils # (A) 7.1 k/uL (1.3-7.7); Neutrophils % (A) 74 %; Platelet Count 390 k/uL (150-450); RBC 5.27 m/uL (4.30-5.90); RDW 14.1 % (11.5-15.5); WBC 9.6 k/uL (3.8-10.6)
[2023-01-01 12:43] LABS: ALT 19 U/L (4-49); AST 28 U/L (17-59); African American GFR (CKD) >90 (>60 ml/min/1.73 sqM); Albumin 4.5 g/dL (3.5-5.0); Alkaline Phosphatase 136 U/L (38-126); Anion Gap 9 mmol/L; Blood Urea Nitrogen 17 mg/dL (9-20); Calcium 9.8 mg/dL (8.4-10.2); Carbon Dioxide 24 mmol/L (22-30); Chloride 106 mmol/L (98-107); Glucose 96 mg/dL (74-99); Non-African American GFR(CKD) >90 (>60 ml/min/1.73 sqM); Potassium 4.3 mmol/L (3.5-5.1); Sodium 139 mmol/L (137-145); Total Bilirubin 0.4 mg/dL (0.2-1.3)
[2023-01-01 12:48] LABS: Partial Thromboplastin Time 23.3 sec (22.0-30.0); Prothrombin Time 10.8 sec (9.0-12.0)
--- NOTE | 2023-01-01 13:19 | CT ---
EXAMINATION TYPE: CT brain wo con DATE OF EXAM: 01/01/2023 COMPARISON: none HISTORY: syncope CT DLP: 1143.[address] of the brain was performed. The ventricles, basal cisterns and sulci overlying the cerebral convexities demonstrate mild enlargem ent. There is no evidence for intracranial hemorrhage or sulcal effacement. There is decreased attenuation about the periventricular white matter and deep white matter of both c erebral hemispheres, compatible with chronic small vessel ischemia. Differential diagnosis does inclu de demyelination. No mass effects are seen.No midline shift. Osseous calvarium is intact. If symptoms persist consider MRI. IMPRESSION: 1. Age related atrophic and chronic small vessel ischemic change without acute intracranial process s een at this time.
--- NOTE | 2023-01-01 13:19 | XR ---
EXAMINATION TYPE: XR chest 2V DATE OF EXAM: 01/01/2023 COMPARISON: 06/23/21 HISTORY: Shortness of breath TECHNIQUE: Frontal and lateral views of the chest are obtained. FINDINGS: Scattered senescent parenchymal changes noted. Hyperinflation compatible with COPD. No evidence for infiltrate. No evidence for atelectasis. Heart size is stable. Mediastinal structures are stable and grossly unremarkable. No evidence for hilar prominence. Degenerative changes dorsal spine. IMPRESSION: 1. No evidence for acute pulmonary disease.
[2023-01-01 13:37] LABS: Appearance,Urine Clear (Clear); Bilirubin,Urine Negative (Negative); Blood,Urine Negative (Negative); Color,Urine Colorless; Glucose,Urine (UA) Negative (Negative); Ketones,Urine Negative (Negative); Leukocyte Esterase,Urine Negative (Negative); Nitrite,Urine Negative (Negative); PH, Urine 7.5 (5.0-8.0); Protein,Urine Negative (Negative); Specific Gravity,Urine 1.005 (1.001-1.035); Urobilinogen,Urine <2.0 mg/dL (<2.0)
[2023-01-01 13:49] LABS: Amphetamine Screen,Urine Not Detected (NotDetected); Barbiturate Screen,Urine Not Detected (NotDetected); Benzodiazepines Screen,Urine Not Detected (NotDetected); Cocaine Screen,Urine Not Detected (NotDetected); Methadone Screen, Urine Not Detected (NotDetected); Opiate Screen,Urine Not Detected (NotDetected); Oxycodone Screen, Urine Not Detected (NotDetected); Phencyclidine Screen,Urine Not Detected (NotDetected); Tricyclic Antidepressant,Urine Not Detected (NotDetected); Urn Cannabinoid Scrn Detected (NotDetected)
[2023-01-01 15:34] VITALS: BP 156/97; PULSE 54
== END 2023-01-01 15:33 | disposition home or self-care (01) ==
LOC: EC 11:53
DX: R55 Syncope and collapse (principal); F41.9 Anxiety disorder, unspecified; R20.2 Paresthesia of skin; R00.1 Bradycardia, unspecified; R06.4 Hyperventilation; I10 Essential (primary) hypertension; J44.9 Chronic obstructive pulmonary disease, unspecified; F12.90 Cannabis use, unspecified, uncomplicated; Z79.82 Long term (current) use of aspirin; Z79.899 Other long term (current) drug therapy; Z86.73 Personal history of transient ischemic attack (TIA), and cerebral infarction without residual deficits
CPT/HCPCS: 36415; 70450; 71046; 80053; 80306; 81003; 84484; 85025; 85610; 85730; 93005; 99285

== ENCOUNTER 2023-05-16 08:42 | Day surgery (SDC) | payer OTHER ==
[2023-05-11 13:21] VITALS: BMI 23.6
[2023-05-16] MEDS ORDERED: LACTATED RINGERS 1,000 ML IV ONE (09:33)
[2023-05-16 09:55] VITALS: TEMP 96.9
[2023-05-16] MEDS ORDERED: PROPOFOL 10 MG/ML 20 ML VIAL IV ONE (10:14)
--- NOTE | 2023-05-16 10:33 | P.PCN ---
Date of Procedure: 05/16/23 Procedure(s) Performed: BRIEF HISTORY: Patient is a 52-year-old pleasant white male scheduled for an elective colonoscopy as a part of screening for colon cancer/positive cologuard. PROCEDURE PERFORMED: Colonoscopy with snare polypectomy PREOPERATIVE DIAGNOSIS: Screening for colon cancer/positive cologuard. IV sedation per Anesthesia. PROCEDURE: After informed consent was obtained, the patient, was brought into the endoscopy unit. IV sedation was administered by Anesthesia under continuous monitoring. Digital rectal examination was normal. Initially the Olympus CF-160 flexible video colonoscope was then inserted in the rectum, gradually advanced into the cecum without any difficulty. Careful examination was performed as the scope was gradually being withdrawn. Ileocecal valve and the appendiceal orifice were visualized and appeared normal. Prep was excellent. Mucosa of the cecum, ascending colon, transverse colon, descending colon, appeared normal. In the sigmoid: There was a 1 cm polyp removed by snare polypectomy. In the rectum; a 22 cm from anal was there was a 1 cm and a 3 cm pedunculated polyp that was removed by snare polypectomy. Scattered left sided diverticulosis seen. Rest of the sigmoid colon, and rectum appeared normal. Retroflexion was performed in the rectum and no lesions were seen. The patient tolerated the procedure well. IMPRESSION: 1 cm proximal; sigmoid polyp status post polypectomy 1 cm and 3 cm rectosigmoid polyp at 22 cm from the anal verge status post snare polypectomy Scattered sigmoid diverticulosis. RECOMMENDATIONS: Findings of this examination were discussed with the patient his family.he was advised to follow with the biopsy results. If the biopsy results adenoma he can have a repeat colonoscopy.
[2023-05-16 10:45] VITALS: RESP 14
[2023-05-16 11:11] VITALS: BP 128/78; PULSE 46
== END 2023-05-16 11:36 | disposition home or self-care (01) ==
LOC: ORWHC2ENDO 08:42
PROVIDERS: ATTEND Internal Medicine Gastroenterology
DX: D12.5 Benign neoplasm of sigmoid colon (principal); D12.7 Benign neoplasm of rectosigmoid junction; K57.30 Diverticulosis of large intestine without perforation or abscess without bleeding; J44.89 Other specified chronic obstructive pulmonary disease; F41.9 Anxiety disorder, unspecified; F32.A Depression, unspecified; K21.9 Gastro-esophageal reflux disease without esophagitis; I10 Essential (primary) hypertension; G40.909 Epilepsy, unspecified, not intractable, without status epilepticus; F17.210 Nicotine dependence, cigarettes, uncomplicated; Z86.73 Personal history of transient ischemic attack (TIA), and cerebral infarction without residual deficits; Z79.52 Long term (current) use of systemic steroids; Z79.899 Other long term (current) drug therapy
CPT/HCPCS: 88305; 45385; J2704

== ENCOUNTER 2024-01-14 00:05 | Inpatient (IN) | payer OTHER ==
--- NOTE | 2024-01-14 00:39 | ED ---
Fall HPI - General Source: patient, RN notes reviewed Mode of arrival: ambulatory <JordanLora - Last Filed: 01/14/24 04:09> <Maritza Varma - Last Filed: 01/27/24 19:36> - General Chief Complaint: Fall Stated Complaint: Syncope, Head Laceration, ABD Pain Time Seen by Provider: 01/14/24 00:35 - History of Present Illness Initial Comments: 53-year-old male presenting with episode of syncope prior to arrival. Patient states he was urinating when he was feeling some lower abdominal pain and syncopized. He believes he did hit his head as he has a "bump" on the back of his head. The fall was unwitnessed. He states he has been dealing with constipation and having abdominal pain for a couple of weeks. He does admit some chest tightness as well. Denies dysuria, shortness of breath. He does admit headache, denies vision changes or lightheadedness. He takes baby aspirin daily. States he has had previous episodes of syncope that he was told was vasovagal. He is not a tobacco smoker. Denies recent surgeries or travel or history of clots. (Lora Jordan) - Related Data Home Medications Medication Instructions Recorded Confirmed traMADol HCL 50 mg PO BID PRN 05/11/23 01/14/24 Albuterol Sulfate [Ventolin HFA] 1 puff INHALATION RT-Q8H PRN 01/14/24 01/14/24 Aspirin 81 mg PO DAILY 01/14/24 01/14/24 hydrOXYzine HCL [Atarax] 25 mg PO TID PRN 01/14/24 01/14/24 Losartan Potassium [Cozaar] 100 mg PO DAILY 01/15/24 01/15/24 amLODIPine [Norvasc] 5 mg PO BID 01/15/24 01/15/24 hydroCHLOROthiazide 12.5 mg PO DAILY 01/15/24 01/15/24 Previous Rx's Medication Instructions Recorded Atorvastatin [Lipitor] 80 mg PO DAILY #30 tab 01/15/24 hydrALAZINE HCL [Apresoline] 25 mg PO TID #90 tab 01/16/24 Allergies Allergy/AdvReac Type Severity Reaction Status Date / Time No Known Allergies Allergy Verified 01/14/24 11:26 Review of Systems ROS Other: All systems not noted in ROS Statement are negative. <Lora Jordan - Last Filed: 01/14/24 04:09> ROS Other: All systems not noted in ROS Statement are negative. <Maritza Varma - Last Filed: 01/27/24 19:36> ROS Statement: Those systems with pertinent positive or pertinent negative responses have been documented in the HPI. Past Medical History Past Medical History: Asthma, COPD, CVA/TIA, Hypertension, Osteoarthritis (OA), Seizure Disorder Additional Past Medical History / Comment(s): hx of head injury r/t fall from tree, migraines, spontaneous pneumothorax, states TIA x3, some short term memory loss, many years ago for seizures History of Any Multi-Drug Resistant Organisms: None Reported Past Surgical History: No Surgical Hx Reported Additional Past Surgical History / Comment(s): chest tube insertion right Past Anesthesia/Blood Transfusion Reactions: No Reported Reaction Additional Past Anesthesia/Blood Transfusion Reaction / Comment(s): no blood transfusion Past Psychological History: Anxiety, Depression Smoking Status: Current every day smoker - Past Family History Mother Family Medical History: No Reported History <Lora Jordan - Last Filed: 01/14/24 04:09> General Exam Limitations: no limitations General appearance: alert, in no apparent distress Head exam: Present: atraumatic, normocephalic. Absent: normal inspection (Small hematoma on back of head, no laceration or active bleeding) Eye exam: Present: normal appearance, PERRL, EOMI. Absent: scleral icterus, conjunctival injection, periorbital swelling ENT exam: Present: normal exam, mucous membranes moist Respiratory exam: Present: normal lung sounds bilaterally. Absent: respiratory distress, wheezes, rales, rhonchi, stridor, chest wall tenderness Cardiovascular Exam: Present: regular rate, normal rhythm, normal heart sounds. Absent: systolic murmur, diastolic murmur, rubs, gallop, clicks GI/Abdominal exam: Present: soft, normal bowel sounds. Absent: distended, tenderness, guarding, rebound, rigid Neurological exam: Present: alert, oriented X3, CN II-XII intact Psychiatric exam: Present: normal affect, normal mood Skin exam: Present: warm, dry, intact, normal color. Absent: rash <Lora Jordan - Last Filed: 01/14/24 04:09> Course Vital Signs 01/14/24 01/14/24 01/14/24 00:08 01:10 01:15 Temperature 97.7 F Pulse Rate 66 80 64 Respiratory 18 19 19 Rate Blood Pressure 145/97 164/100 160/101 O2 Sat by Pulse 100 100 100 Oximetry 01/14/24 01:21 Temperature Pulse Rate 58 L Respiratory 20 Rate Blood Pressure 153/104 O2 Sat by Pulse 100 Oximetry Medical Decision Making - Lab Data Result diagrams: 01/14/24 02:33 01/14/24 02:33 <Lora Jordan - Last Filed: 01/14/24 04:09> - Lab Data Result diagrams: 01/16/24 07:43 01/15/24 05:39 <Maritza Varma - Last Filed: 01/27/24 19:36> - Medical Decision Making Was pt. sent in by a medical professional or institution (, PA, [facility], urgent care, hospital, or care home...) When possible be specific @ -[No] Did you speak to anyone other than the patient for history (EMS, parent, family, police, friend...)? What history was obtained from this source @ -[No] Did you review nursing and triage notes (agree or disagree)? Why? @ -[I reviewed and agree with nursing and triage notes] Were old charts reviewed (outside hosp., previous admission, EMS record, old EKG, old radiological studies, urgent care reports/EKG's, care home records)? Report findings @ -[No old charts were reviewed] Differential Diagnosis (chest pain, altered mental status, abdominal pain women, abdominal pain men, vaginal bleeding, weakness, fever, dyspnea, syncope, headache, dizziness, GI bleed, back pain, seizure, CVA, palpatations, mental health, musculoskeletal)? @ Differential Syncope: Valvular disease, hypertrophic cardiomyopathy, pulmonary embolism, tamponade, tachycardia, bradycardia, WI, hypovolemia, hemorrhage, dissection, anemia, intracranial hemorrhage, seizure, hypoglycemia, carbon monoxide poisoning, this is not meant to be an all-inclusive list. EKG interpreted by me (3pts min.). @ -[As above] X-rays interpreted by me (1pt min.). @ -Chest x-ray reveals no acute process CT interpreted by me (1pt min.). @ -[None done] U/S interpreted by me (1pt. min.). @ -[None done] What testing was considered but not performed or refused? (CT, X-rays, U/S, labs)? Why? @ -[None] What meds were considered but not given or refused? Why? @ -[None] Did you discuss the management of the patient with other professionals (professionals i.e. , PA, [employer], lab, RT, psych nurse, social service worker, fire observer, teacher, environmental compliance officer, correctional case records supervisor)? Give summary @ -[No] Was smoking cessation discussed for >3mins.? @ -[No] Was critical care preformed (if so, how long)? @ -[No] Were there social determinants of health that impacted care today? How? (Homelessness, low income, unemployed, alcoholism, drug addiction, transportation, low edu. Level, literacy, decrease access to med. care, [facility], rehab)? @ -[No] Was there de-escalation of care discussed even if they declined (Discuss DNR or withdrawal of care, Hospice)? DNR status @ -[No] What co-morbidities impacted this encounter? (DM, HTN, Smoking, COPD, CAD, Cancer, CVA, ARF, Chemo, Hep., AIDS, mental health diagnosis, sleep apnea, morbid obesity)? @ -[None] Was patient admitted / discharged? Hospital course, mention meds given and route, prescriptions, significant lab abnormalities, going to OR and other pertinent info. @ -Patient was admitted. Undiagnosed new problem with uncertain prognosis? @ -[No] Drug Therapy requiring intensive monitoring for toxicity (Heparin, Nitro, Insulin, Cardizem)? @ -[No] Were any procedures done? @ -[No] Diagnosis/symptom? @ -[default] Acute, or Chronic, or Acute on Chronic? @ -[default] Uncomplicated (without systemic symptoms) or Complicated (systemic symptoms)? @ -[default] Side effects of treatment? @ -[No] Exacerbation, Progression, or Severe Exacerbation? @ -[No] Poses a threat to life or bodily function? How? (Chest pain, [place], [place], pneumonia, PE, COPD, DKA, ARF, appy, cholecystitis, CVA, Diverticulitis, Homicidal, Suicidal, threat to staff... and all critical care pts) @ -[No] (Lora Jordan) EKG was brought to my attention after it was performed by RN. at 12:50 AM. Reviewed by myself, performed at 12:46 AM and showed diffuse ST elevation in the lateral leads as well as T wave inversion in leads V1 and V2, Q waves noted in leads V4, 5, 6, leads I to III and aVF as well as ST depression in lead aVR. I went to evaluate patient who had reportedly presented for syncope, chief complaint listed as "fall". Patient intially seen and assessed by [facility]. On my assesment patient pale, diarphoretic and ill appearing, complained of right sided chest pressure. Hx HTN, smoking. Repeat EKG requested due to CP and concerning findings on initial EKG. Repeat EKG performed at 12:[address] elevation in leads V1 and V2 in addition to leads II and III. Due to CP, dynamic EKG changes and concerning hx activated STEMI alert. ASA, SL nitroglycerin and morphine ordered. Update patient and to my concerns and plan for cardiology to evaluate and anticipated transfer to [facility]. Patient's CP did improve somewhat with SL nitroglycerin. Case discussed with Dr. Sullivan who will meet patient in [facility]. Pt transported to [facility] in stable condition. Discussed case with Dr. Kirk, admitting physician, who accepted patient for admission. Patient had already been transferred to [facility] at time of admission. Critical Care time: 45 minutes Undiagnosed new problem with uncertain prognosis? @ -No Drug Therapy requiring intensive monitoring for toxicity (Heparin, Nitro, Insulin, Cardizem)? @ -No Were any procedures done? @ -No Diagnosis/symptom? @ -STEMI Acute, or Chronic, or Acute on Chronic? @ Acute Uncomplicated (without systemic symptoms) or Complicated (systemic symptoms)? @ -Complicated Side effects of treatment? @ -No Exacerbation, Progression, or Severe Exacerbation? @ -No Poses a threat to life or bodily function? How? (Chest pain, [place], [place], pneumonia, PE, COPD, DKA, ARF, appy, cholecystitis, CVA, Diverticulitis, Homicidal, Suicidal, threat to staff... and all critical care pts) @ -yes (Maritza Varma) - Lab Data Lab Results 01/14/24 01/14/24 01/14/24 Range/Units 00:48 00:48 00:48 WBC 8.1 (3.8-10.6) k/uL RBC 4.67 (4.30-5.90) m/uL Hgb 13.7 (13.0-17.5) gm/dL Hct 41.2 (39.0-53.0) % MCV 88.1 (80.0-100.0) fL MCH 29.4 (25.0-35.0) pg MCHC 33.4 (31.0-37.0) g/dL RDW 12.6 (11.5-15.5) % Plt Count 393 (150-450) k/uL MPV 6.6 Neutrophils % 54 % Lymphocytes % 33 % Monocytes % 5 % Eosinophils % 5 % Basophils % 1 % Neutrophils # 4.4 (1.3-7.7) k/uL Lymphocytes # 2.7 (1.0-4.8) k/uL Monocytes # 0.4 (0-1.0) k/uL Eosinophils # 0.4 (0-0.7) k/uL Basophils # 0.1 (0-0.2) k/uL Sodium 137 (137-145) mmol/L Potassium 3.6 (3.5-5.1) mmol/L Chloride 102 (98-107) mmol/L Carbon Dioxide 33 H (22-30) mmol/L Anion Gap 2 mmol/L BUN 19 (9-20) mg/dL Creatinine 1.03 (0.66-1.25) mg/dL Est GFR (CKD-EPI)AfAm >90 (>60 ml/min/1.73 sqM) Est GFR (CKD-EPI)NonAf 84 (>60 ml/min/1.73 sqM) Glucose 103 H (74-99) mg/dL Plasma Lactic Acid Richardson 1.1 (0.7-2.0) mmol/L Calcium 9.3 (8.4-10.2) mg/dL Total Bilirubin 0.4 (0.2-1.3) mg/dL AST 27 (17-59) U/L ALT 16 (4-49) U/L Alkaline Phosphatase 93 (38-126) U/L Troponin I (0.000-0.034) ng/mL Total Protein 6.4 (6.3-8.2) g/dL Albumin 3.9 (3.5-5.0) g/dL 01/14/24 Range/Units 00:48 WBC (3.8-10.6) k/uL RBC (4.30-5.90) m/uL Hgb (13.0-17.5) gm/dL Hct (39.0-53.0) % MCV (80.0-100.0) fL MCH (25.0-35.0) pg MCHC (31.0-37.0) g/dL RDW (11.5-15.5) % Plt Count (150-450) k/uL MPV Neutrophils % % Lymphocytes % % Monocytes % % Eosinophils % % Basophils % % Neutrophils # (1.3-7.7) k/uL Lymphocytes # (1.0-4.8) k/uL Monocytes # (0-1.0) k/uL Eosinophils # (0-0.7) k/uL Basophils # (0-0.2) k/uL Sodium (137-145) mmol/L Potassium (3.5-5.1) mmol/L Chloride (98-107) mmol/L Carbon Dioxide (22-30) mmol/L Anion Gap mmol/L BUN (9-20) mg/dL Creatinine (0.66-1.25) mg/dL Est GFR (CKD-EPI)AfAm (>60 ml/min/1.73 sqM) Est GFR (CKD-EPI)NonAf (>60 ml/min/1.73 sqM) Glucose (74-99) mg/dL Plasma Lactic Acid Richardson (0.7-2.0) mmol/L Calcium (8.4-10.2) mg/dL Total Bilirubin (0.2-1.3) mg/dL AST (17-59) U/L ALT (4-49) U/L Alkaline Phosphatase (38-126) U/L Troponin I <0.012 (0.000-0.034) ng/mL Total Protein (6.3-8.2) g/dL Albumin (3.5-5.0) g/dL Disposition <Lora Jordan - Last Filed: 01/14/24 04:09> <Maritza Varma - Last Filed: 01/27/24 19:36> Clinical Impression: STEMI (ST elevation myocardial infarction) Disposition: ADMITTED IP TO THIS HOSP Condition: Stable
[2024-01-14] MEDS ORDERED: NITROGLYCERIN SL TABS 0.4 MG TAB SUBLINGUAL PRN ×2 (00:57→01:55)
[2024-01-14] MEDS: HEPARIN SODIUM 1,000 UN/ML (10ML VL) IV ONE (01:06)
[2024-01-14] MEDS: HEPARIN SOD,PORK IN 0.45% NACL 25,000 UNIT in 0.45% NACL 1 250ML.BAG IV SCH (01:07)
[2024-01-14] MEDS: MORPHINE SULFATE 4 MG/ML SYRINGE IVP STA (01:09)
[2024-01-14] MEDS: ASPIRIN 81 MG PO STA (01:10)
--- NOTE | 2024-01-14 01:14 | XR ---
EXAMINATION TYPE: XR chest 1V portable DATE OF EXAM: 01/14/2024 COMPARISON: Chest x-ray January 01, 2023 HISTORY: STEMI TECHNIQUE: Single frontal view of the chest is obtained. FINDINGS: There is no focal air space opacity, pleural effusion, or pneumothorax seen. The cardiac silhouette size is stable and within normal limits. The osseous structures are intact. Overlying EK G leads are seen. IMPRESSION: No acute process. No significant change from most recent prior. [facility], , 01/14/2024 1:12 AM
[2024-01-14 01:20] LABS: Basophils # (A) 0.1 k/uL (0-0.2); Basophils % (A) 1 %; Eosinophils # (A) 0.4 k/uL (0-0.7); Eosinophils % (A) 5 %; HCT 41.2 % (39.0-53.0); HGB 13.7 gm/dL (13.0-17.5); Lymphocytes # (A) 2.7 k/uL (1.0-4.8); Lymphocytes % (A) 33 %; MCH 29.4 pg (25.0-35.0); MCHC 33.4 g/dL (31.0-37.0); MCV 88.1 fL (80.0-100.0); Mean Platelet Volume 6.6; Monocytes # (A) 0.4 k/uL (0-1.0); Monocytes % (A) 5 %; Neutrophils # (A) 4.4 k/uL (1.3-7.7); Neutrophils % (A) 54 %; Platelet Count 393 k/uL (150-450); RBC 4.67 m/uL (4.30-5.90); RDW 12.6 % (11.5-15.5); WBC 8.1 k/uL (3.8-10.6)
[2024-01-14 01:26] LABS: ALT 16 U/L (4-49); AST 27 U/L (17-59); African American GFR (CKD) >90 (>60 ml/min/1.73 sqM); Albumin 3.9 g/dL (3.5-5.0); Alkaline Phosphatase 93 U/L (38-126); Blood Urea Nitrogen 19 mg/dL (9-20); Calcium 9.3 mg/dL (8.4-10.2); Chloride 102 mmol/L (98-107); Glucose 103 mg/dL (74-99); Non-African American GFR(CKD) 84 (>60 ml/min/1.73 sqM); Potassium 3.6 mmol/L (3.5-5.1); Sodium 137 mmol/L (137-145); Total Bilirubin 0.4 mg/dL (0.2-1.3); Total Protein 6.4 g/dL (6.3-8.2)
[2024-01-14] MEDS: MIDAZOLAM 2 MG/2 ML VIAL IVP ONE (01:39)
[2024-01-14] MEDS: VERAPAMIL SYRINGE (5 MG/10 ML) INTRAARTER ONE (01:39)
[2024-01-14] MEDS: LIDOCAINE 1% INJ 10MG/ML (20 ML MDV) SQ ONE (01:39)
[2024-01-14] MEDS: fentaNYL (PF) 50 MCG/ML 2 ML AMP IVP ONE (01:39)
[2024-01-14] MEDS: ACETAMINOPHEN TAB 325 MG TAB PO STA (01:39)
[2024-01-14 01:42] LABS: Anion Gap 2 mmol/L; Carbon Dioxide 33 mmol/L (22-30)
[2024-01-14] MEDS: HEPARIN SODIUM 1,000 UN/ML (10ML VL) IVP ONE (01:46)
[2024-01-14] MEDS: SODIUM CHLORIDE 0.9% 1,000 ML IV ONE (01:50)
[2024-01-14] MEDS: IOPAMIDOL-370 200ML BTL INJ ONE (01:52)
--- NOTE | 2024-01-14 02:09 | P.CRDCN ---
History of Present Illness History of present illness: HISTORY OF PRESENTING ILLNESS This is a pleasant 53-year-old with past medical history significant for prior tobacco abuse and borderline hypertension who presents secondary to syncope and chest pain. Patient states he previously followed with Dr. ASHLYN Carpio. He had prior cardiac workup and had been taken off of a number of his "heart medications". he states he had been feeling fine however woke up and went to the bathroom and then found himself on the floor. He denies any significant preceding events. He states he has had 6 other episodes of syncope. Sometimes these are associated with some chest discomfort and that he will pass out. This can happen when he is standing or walking or when he is sitting. He therefore presented to emergency department. He was also complaining of some right sided chest heaviness and feeling shaky. EKG was performed which showed sinus rhythm with J-point elevation, incomplete right bundle branch block, borderline ST elevation throughout without significant ST depressions and T-wave inversion in aVL. Repeat EKG was performed with concern of worsening ST elevation therefore STEMI was called. REVIEW OF SYSTEMS At the time of my exam: CONSTITUTIONAL: Denies fever or chills. CARDIOVASCULAR: +r chest pain, no shortness of breath, orthopnea, PND or palpitations. RESPIRATORY: Denies cough. GASTROINTESTINAL: Denies abdominal pain, diarrhea, constipation, nausea or vomiting. MUSCULOSKELETAL: Denies myalgias. NEUROLOGIC: Denies numbness, tingling or weakness. ENDOCRINE: Denies fatigue, weight change, polydipsia or polyurina. GENITOURINARY: Denies burning, hematuria or urgency with micturation. HEMATOLOGIC: Denies history of anemia or bleeding. PHYSICAL EXAMINATION Vital signs reviewed. CONSTITUTIONAL: No apparent distress. HEENT: Head is normocephalic. Pupils are equal, round. Sclerae anicteric. Mucous membranes of the mouth are moist. No JVD. No carotid bruit. CHEST EXAMINATION: Lungs are clear to auscultation. No chest wall tenderness is noted on palpation or with deep breathing. HEART EXAMINATION: Regular rate and rhythm. S1, S2 heard. No murmurs, gallops or rub. ABDOMEN: Soft, nontender. Positive bowel sounds. EXTREMITIES: 2+ peripheral pulses, no lower extremity edema and no calf tenderness. NEUROLOGIC EXAMINATION: Patient is awake, alert and oriented x3. ASSESSMENT Abnormal EKG with borderline ST elevation, some degree J-point elevation Right-sided chest pain Syncope 6 rule out cardiogenic source Prior tobacco abuse Hypertension CAD, 10-30% stenosis PLAN Heart catheterization performed which shows mild CAD 10-20% stenosis with a ramus 20- 30% stenosis. borderline ST elevation and does not appear typical of pericarditis and appears improved on repeat EKG in [employer]. Does not appear consistent with vasospasm. Check 2-D echo. Continue to trend troponins. Consider loop recorder given recurrent syncopal episodes without significant hospitalization. Further recommendations to follow. Past Medical History Past Medical History: Asthma, COPD, CVA/TIA, Hypertension, Osteoarthritis (OA), Seizure Disorder Additional Past Medical History / Comment(s): hx of head injury r/t fall from tree, migraines, spontaneous pneumothorax, states TIA x3, some short term memory loss, many years ago for seizures History of Any Multi-Drug Resistant Organisms: None Reported Past Surgical History: No Surgical Hx Reported Additional Past Surgical History / Comment(s): chest tube insertion right Past Anesthesia/Blood Transfusion Reactions: No Reported Reaction Additional Past Anesthesia/Blood Transfusion Reaction / Comment(s): no blood transfusion Past Psychological History: Anxiety, Depression Smoking Status: Current every day smoker - Past Family History Mother Family Medical History: No Reported History Medications and Allergies Home Medications Medication Instructions Recorded Confirmed Type Aspirin EC [Ecotrin Low Dose] 81 mg PO DAILY 10/30/18 05/16/23 History Multivitamins, Thera [Multivitamin 1 tab PO DAILY 10/30/18 05/16/23 History (formulary)] cloNIDine HCL [Catapres] 0.2 mg PO BID 10/30/18 05/16/23 History hydrOXYzine pamoate [Vistaril] 50 mg PO DAILY PRN 05/11/23 05/16/23 History traMADol HCL 50 mg PO Q6H PRN 05/11/23 05/16/23 History Allergies Allergy/AdvReac Type Severity Reaction Status Date / Time No Known Allergies Allergy Verified 01/14/24 00:19 Physical Exam Vitals: Vital Signs Temp Pulse Resp BP Pulse Ox 01/14/24 01:21 58 L 20 153/104 100 01/14/24 01:15 64 19 160/101 100 01/14/24 01:10 80 19 164/100 100 01/14/24 00:08 97.7 F 66 18 145/97 100 Intake and Output 01/13/24 01/13/24 01/14/24 14:59 22:59 06:59 Intake Total 50 Balance 50 Intake: IV 50 Other: Weight 65.771 kg Results 01/14/24 00:48 01/14/24 00:48 Cardiac Enzymes 01/14/24 01/14/24 Range/Units 00:48 00:48 AST 27 (17-59) U/L Troponin I <0.012 (0.000-0.034) ng/mL CBC 01/14/24 Range/Units 00:48 WBC 8.1 (3.8-10.6) k/uL RBC 4.67 (4.30-5.90) m/uL Hgb 13.7 (13.0-17.5) gm/dL Hct 41.2 (39.0-53.0) % Plt Count 393 (150-450) k/uL Comprehensive Metabolic Panel 01/14/24 Range/Units 00:48 Sodium 137 (137-145) mmol/L Potassium 3.6 (3.5-5.1) mmol/L Chloride 102 (98-107) mmol/L Carbon Dioxide 33 H (22-30) mmol/L BUN 19 (9-20) mg/dL Creatinine 1.03 (0.66-1.25) mg/dL Glucose 103 H (74-99) mg/dL Calcium 9.3 (8.4-10.2) mg/dL AST 27 (17-59) U/L ALT 16 (4-49) U/L Alkaline Phosphatase 93 (38-126) U/L Total Protein 6.4 (6.3-8.2) g/dL Albumin 3.9 (3.5-5.0) g/dL Current Medications Generic Name Dose Route Start Last Admin Trade Name Freq PRN Reason Stop Dose Admin Heparin Sodium/Sodium Chloride 250 mls @ 7.893 mls/hr 01/14/24 01:00 01/14/24 01:07 25,000 unit/ Sodium Chloride IV 12 units/kg/hr .Q24H LEONILA 7.893 mls/hr Administration Protocol 12 UNITS/KG/HR Nitroglycerin 0.4 mg 01/14/24 00:57 Nitroglycerin Sl Tabs 0.4 Mg Tab SUBLINGUAL Q5M PRN Chest Pain Intake and Output 01/13/24 01/13/24 01/14/24 14:59 22:59 06:59 Intake Total 50 Balance 50 Intake: IV 50 Other: Weight 65.771 kg Patient Weight 01/14/24 06:59 Weight 65.771 kg 01/14/24 00:48 01/14/24 00:48
--- NOTE | 2024-01-14 02:12 | P.CARDCATH ---
Description of Procedure: PROCEDURES PERFORMED: Bilateral coronary angiography, ultrasound guided arterial access INDICATION: STEMI CONSENT:I have discussed the risks, benefits and alternative therapies for the above-mentioned procedure and for both sedation/analgesia as well as necessary blood product administration, if indicated, as they pertain to this patient. The patient has indicated understanding and acceptance of the risks and procedures discussed. PROCEDURE: After the risks, benefits and alternatives of the above mentioned procedure explained in detail with the patient, informed consent was obtained. Patient was taken to the catheterization lab and prepped and draped in usual fashion. Ultrasound guidance was used to assess for arterial access. 1% lidocaine was used to anesthetize the right radial artery. A 6-Mongolian sheath was placed in the right radial artery using modified Seldinger technique and ultrasound guidance. Left coronary angiography was performed with a 5-Mongolian JL 3.5 catheter and right coronary angiography was performed with a 5-Mongolian FR5 catheter in various views. A 5-Mongolian FR5 catheter was inserted into the left ventricle and pressure measurements were obtained. The right radial sheath was removed and a TR band was placed with hemostasis achieved. The patient tolerated the procedure well. Patient was transported back to the post catheterization holding area in stable condition. Conscious Sedation: Patient was monitored under the direct supervision of myself for conscious sedation using Versed and fentanyl for a total duration of 11 minutes HEMODYNAMICS: Ao: 151/95 SELECTIVE CORONARY ARTERIOGRAPHY: LEFT MAIN: The left main is a large caliber vessel which trifurcates into the LAD, ramus and circumflex. There is no significant stenosis. LEFT ANTERIOR DESCENDING CORONARY ARTERY: LAD is a large caliber vessel which wraps around to the apex. There are mild luminal irregularities 10- 20% proximal and mid LAD stenosis. Diagonal 1 has a 20-30% proximal stenosis. RAMUS INTERMEDIUS: the ramus is a small to moderate caliber vessel with no significant stenosis. LEFT CIRCUMFLEX CORONARY ARTERY: Left circumflex is a moderate caliber vessel with mild luminal irregularities. RIGHT CORONARY ARTERY: The right coronary artery is a large caliber vessel which gives off a PDA and PLV branch and is the dominant vessel. There are mild luminal irregularities of the RCA and 10-20% proximal PDA stenosis. FINAL IMPRESSION: 1. Mild CAD as described above with 10-20% LAD, 10-20% PDA and 20-30% proximal diagonal 1 stenosis PLAN: 1. Aggressive risk factor modification per most recent ACC/AHA guidelines.
[2024-01-14 02:17] LABS: Glucose,Whole Blood 117 mg/dL (70-110)
[2024-01-14 02:48] LABS: HCT 40.6 % (39.0-53.0); HGB 13.4 gm/dL (13.0-17.5); MCH 29.3 pg (25.0-35.0); MCV 88.9 fL (80.0-100.0); Mean Platelet Volume 6.6; Platelet Count 389 k/uL (150-450); RBC 4.56 m/uL (4.30-5.90); RDW 12.9 % (11.5-15.5); WBC 10.5 k/uL (3.8-10.6)
[2024-01-14 03:16] LABS: Partial Thromboplastin Time 136.4 sec (22.0-30.0)
[2024-01-14] MEDS: LOSARTAN 25 MG TAB PO SCH (03:46)
[2024-01-14 04:00] LABS: ALT 17 U/L (4-49); AST 24 U/L (17-59); African American GFR (CKD) >90 (>60 ml/min/1.73 sqM); Albumin 3.6 g/dL (3.5-5.0); Alkaline Phosphatase 114 U/L (38-126); Anion Gap 2 mmol/L; Blood Urea Nitrogen 17 mg/dL (9-20); Carbon Dioxide 29 mmol/L (22-30); Chloride 106 mmol/L (98-107); Glucose 113 mg/dL (74-99); Non-African American GFR(CKD) >90 (>60 ml/min/1.73 sqM); Potassium 3.3 mmol/L (3.5-5.1); Sodium 137 mmol/L (137-145); Total Bilirubin 0.4 mg/dL (0.2-1.3); Total Protein 6.3 g/dL (6.3-8.2)
[2024-01-14] MEDS ORDERED: Potassium Replacement Protocol 1 EACH MISC MISCELLANE PRN (04:10)
[2024-01-14] MEDS: POTASSIUM CHLORIDE ER 20 MEQ TAB.ER PO SCH (04:14)
[2024-01-14] MEDS: ATORVASTATIN 80 MG TAB PO SCH (08:06)
--- NOTE | 2024-01-14 08:07 | P.PN ---
Subjective Progress Note Date: 01/14/24 PROGRESS NOTE The patient is a 53-year-old male with history of chronic tobacco use prior history of smoking who presented to the hospital with symptoms of syncope, details are not clear. He had some chest discomfort. In the emergency room he was in sinus mechanism with incomplete right bundle branch block and J-point elevation. He underwent coronary angiography by Dr. Sullivan and was found to have mild obstructive disease with no high-grade stenosis. He is feeling well this morning, tired but denies any chest discomfort, dizziness or palpitations. He continues to be in sinus bradycardia. His blood pressure is stable. His lab showed a troponin of less than 0.012. Medications: Aspirin, Lipitor 80 mg daily, losartan 25 mg daily PHYSICAL EXAMINATION: Blood pressure 126/60 heart rate 55 LUNGS: Clear to auscultation HEART: Regular rate and rhythm, S1, S2. No S3. No systolic murmur ABDOMEN: Soft, nontender, no organomegaly EXTREMETIES: No edema, TR band in place LAB: Troponin less than 0.012, BUN 17, creatinine 0.92, potassium 3.3 IMPRESSION: 1. Chest discomfort with no evidence of myocardial infarction or significant obstructive disease 2. Syncope of unclear etiology, no evidence of malignant arrhythmia so far 3. Prior history of smoking 4. Sinus bradycardia 5. Prior history of hypertension PLAN: 1. Increase physical activity 2. Obtain an echocardiogram with Doppler 3. Depending on the results of the echocardiogram probably proceed with a loop recorder implantation tomorrow to rule out malignant bradycardia or tachycardia 4. Depending on his progress further recommendations will be made Objective - Vital Signs Vital signs: Vital Signs Temp 98.1 F 01/14/24 03:24 Pulse 60 01/14/24 03:24 Resp 16 01/14/24 03:24 BP 127/78 01/14/24 03:24 Pulse Ox 97 01/14/24 03:24 FiO2 Intake & Output 01/13/24 01/14/24 01/14/24 18:59 06:59 18:59 Intake Total 50 48.41 Output Total 500 Balance -450 48.41 Weight 65.771 kg Intake: IV 50 Intake, IV Titration 48.41 Amount Heparin Sod,Pork in 0.45% 48.41 NaCl 25,000 unit In 0.45 % NaCl 1 250ml.bag @ 12 UNITS/KG/HR 7.893 mls/hr IV .Q24H [facility] Rx#: [id number] Output: Urine 500 - Labs CBC & Chem 7: 01/14/24 02:33 01/14/24 02:33 Labs: Abnormal Lab Results - Last 24 Hours (Table) 01/14/24 01/14/24 01/14/24 Range/Units 00:48 02:15 02:33 APTT 136.4 H* (22.0-30.0) sec D-Dimer 0.74 H (<0.60) mg/L FEU Potassium (3.5-5.1) mmol/L Carbon Dioxide 33 H (22-30) mmol/L Glucose 103 H (74-99) mg/dL POC Glucose (mg/dL) 117 H (70-110) mg/dL 01/14/24 Range/Units 02:33 APTT (22.0-30.0) sec D-Dimer (<0.60) mg/L FEU Potassium 3.3 L (3.5-5.1) mmol/L Carbon Dioxide (22-30) mmol/L Glucose 113 H (74-99) mg/dL POC Glucose (mg/dL) (70-110) mg/dL
[2024-01-14 11:49] LABS: Prothrombin Time 10.6 sec (10.0-12.5)
[2024-01-14] MEDS: ACETAMINOPHEN TAB 325 MG TAB PO PRN (11:56)
--- NOTE | 2024-01-14 13:14 | CA ---
Transthoracic Echo Report Name: Ethan Swartz Age: 53 Gender: M : 1970 Exam Date: 01/14/2024 08:09 Exam Location: [facility] Ht (in): 70 Wt (lb): 145 Ordering Physician: Ulises Sullivan DO ([email or web address]) Attending/Referring Phys: Professor Of Physics Hailee Lovelace RDCS Procedure CPT: Indications: Syncope Cardiac Hx: Technical Quality: Good Contrast 1: Total Dose (mL): Contrast 2: Total Dose (mL): MEASUREMENTS (Male / Female) Normal Values 2D ECHO LV Diastolic Diameter PLAX 4.3 cm 4.2 - 5.9 / 3.9 - 5.3 cm LV Systolic Diameter PLAX 2.8 cm IVS Diastolic Thickness 1.0 cm 0.6 - 1.0 / 0.6 - 0.9 cm LVPW Diastolic Thickness 1.2 cm 0.6 - 1.0 / 0.6 - 0.9 cm LV Relative Wall Thickness 0.5 RV Internal Dim ED PLAX 3.4 cm LA Systolic Diameter LX 4.3 cm 3.0 - 4.0 / 2.7 - 3.8 cm LV Diastolic Volume MOD BP 70.2 cm??? 67 - 155 / 56 - 104 cm??? LV Systolic Volume MOD BP 35.1 cm??? 22 - 58 / 19 - 49 cm??? LV Ejection Fraction MOD BP 50.0 % >= 55 % LV Cardiac Index MOD BP 858.9 cm???/min???m??? LV Diastolic Volume MOD 4C 84.7 cm??? LV Systolic Volume MOD 4C 47.8 cm??? LV Ejection Fraction MOD 4C 43.5 % LV Cardiac Index MOD 4C 902.7 cm???/min???m??? LV Diastolic Length 4C 8.1 cm LV Systolic Length 4C 6.9 cm LV Diastolic Volume MOD 2C 56.6 cm??? LV Systolic Volume MOD 2C 24.2 cm??? LV Ejection Fraction MOD 2C 57.3 % LV Cardiac Index MOD 2C 794.1 cm???/min???m??? LV Diastolic Length 2C 8.4 cm LV Systolic Length 2C 7.4 cm M-MODE Aortic Root Diameter MM 3.4 cm AV Cusp Separation MM 2.0 cm DOPPLER AV Peak Velocity 112.9 cm/s AV Peak Gradient 5.1 mmHg Mitral E Point Velocity 89.9 cm/s Mitral A Point Velocity 64.9 cm/s Mitral E to A Ratio 1.4 MV Deceleration Time 205.5 ms MV E' Velocity 11.9 cm/s Mitral E to MV E' Ratio 7.6 FINDINGS Left Ventricle Left ventricular ejection fraction is estimated at 45-50 %. Left ventricular cavity size normal. Mildly decreased left ventricular ejection fraction. Right Ventricle Mild right ventricular dilatation. Unable to estimate the right ventricular systolic pressure. Right Atrium Normal right atrial size. No right atrial thrombus or mass seen. Left Atrium Mildly increased left atrial diameter. No left atrial thrombus or mass present. Mitral Valve Structurally normal mitral valve. No mitral stenosis, regurgitation or prolapse. Aortic Valve Trileaflet aortic valve. No aortic valve stenosis or regurgitation. Tricuspid Valve Structurally normal tricuspid valve. No tricuspid regurgitation. Pulmonic Valve Structurally normal pulmonic valve. No pulmonic regurgitation. Pericardium No pericardial or pleural effusion. Aorta Normal size aortic root and proximal ascending aorta. CONCLUSIONS Mildly impaired LV function with EF around 45% No significant valvular abnormalities noted No evidence of pericardial effusion Previewed by: Dr. Barrett Garcia MD (Electronically Signed) Final Date: 14 January 2024 13:13
[2024-01-14] MEDS: SODIUM CHLORIDE 0.9% 1,000 ML IV SCH ×2 (16:28)
[2024-01-14] MEDS: MORPHINE SULFATE 4 MG/ML SYRINGE IV PRN (23:25)
[2024-01-15 05:51] LABS: Mean Platelet Volume 6.3; Platelet Count 381 k/uL (150-450)
[2024-01-15 06:02] LABS: African American GFR (CKD) >90 (>60 ml/min/1.73 sqM); Anion Gap 2 mmol/L; Blood Urea Nitrogen 10 mg/dL (9-20); Calcium 8.8 mg/dL (8.4-10.2); Carbon Dioxide 28 mmol/L (22-30); Chloride 108 mmol/L (98-107); Glucose 94 mg/dL (74-99); Non-African American GFR(CKD) >90 (>60 ml/min/1.73 sqM); Potassium 3.7 mmol/L (3.5-5.1); Sodium 138 mmol/L (137-145)
[2024-01-15] MEDS: ASPIRIN 81 MG PO SCH (06:43)
[2024-01-15 06:47] LABS: Glucose,Whole Blood 105 mg/dL (70-110)
[2024-01-15] MEDS: MIDAZOLAM 2 MG/2 ML VIAL IVP ONE (07:25)
[2024-01-15] MEDS: LIDOCAINE 1% INJ 10MG/ML (20 ML MDV) SQ ONE (07:26)
[2024-01-15] MEDS: IV FLUID CONTINUATION 1,000 ML IV ONE (07:31)
--- NOTE | 2024-01-15 07:37 | P.PN ---
Subjective Progress Note Date: 01/15/24 PROGRESS NOTE The patient is a 53-year-old male with history of chronic tobacco use prior history of smoking who presented to the hospital with symptoms of syncope, details are not clear. He had some chest discomfort. In the emergency room he was in sinus mechanism with incomplete right bundle branch block and J-point elevation. He underwent coronary angiography by Dr. Sullivan and was found to have mild obstructive disease with no high-grade stenosis. He is feeling well this morning, tired but denies any chest discomfort, dizziness or palpitations. He continues to be in sinus bradycardia. His blood pressure is stable. His lab showed a troponin of less than 0.012. January 14: The patient feels well this morning, he denies any dizziness or palpitations. He has mild chest discomfort. He continues to be in sinus mechanism. His echocardiogram showed an ejection fraction of 45 to 50% with no significant valvular disease. His lab data showed no evidence of myocardial infarction and his TSH was normal. He has recurrent syncope in the past and had event monitor as an outpatient that showed no evidence of malignant arrhythmia. He is followed on a regular basis by Dr. Carpio. Medications: Aspirin, Lipitor 80 mg daily, losartan 25 mg daily PHYSICAL EXAMINATION: Blood pressure 155/90 heart rate 42 LUNGS: Clear to auscultation HEART: Regular rate and rhythm, S1, S2. No S3. No systolic murmur ABDOMEN: Soft, nontender, no organomegaly EXTREMETIES: No edema, right radial pulse intact . Recurrent, IMPRESSION: 1. Chest discomfort with no evidence of myocardial infarction or significant obstructive disease 2. Syncope of unclear etiology, no evidence of malignant arrhythmia so far, recurrent, prior workup negative 3. Prior history of smoking 4. Sinus bradycardia 5. Hypertension PLAN: 1. Increase physical activity 2. Increase losartan 3. Proceed with loop recorder implantation today 4. If stable probable discharge home today and follow-up as an outpatient with Dr. Carpio Objective - Vital Signs Vital signs: Vital Signs Temp 97.9 F 01/15/24 04:00 Pulse 41 L 01/15/24 04:00 Resp 19 01/15/24 04:00 BP 160/99 01/15/24 04:00 Pulse Ox 99 01/15/24 04:00 FiO2 Intake & Output 01/14/24 01/15/24 01/15/24 18:59 06:59 18:59 Intake Total 908.41 800 100 Output Total 925 600 Balance -16.59 200 100 Weight 67.6 kg Intake: IV 140 800 100 Invasive Line 1 20 Invasive Line 2 20 Sodium Chloride 0.9% 1, 50 000 ml @ 50 mls/hr IV . Q20H [facility] Rx#:[id number] Sodium Chloride 0.9% 1, 50 800 000 ml @ 50 mls/hr IV . Q20H [facility] Rx#:[id number] Intake, IV Titration 48.41 Amount Heparin Sod,Pork in 0.45% 48.41 NaCl 25,000 unit In 0.45 % NaCl 1 250ml.bag @ 12 UNITS/KG/HR 7.893 mls/hr IV .Q24H [facility] Rx#: [id number] Oral 720 Output: Urine 925 600 Stool 0 Other: Voiding Method Urinal Urinal # Voids 2 2 # Bowel Movements 0 0 - Labs CBC & Chem 7: 01/15/24 05:39 01/15/24 05:39 Labs: Abnormal Lab Results - Last 24 Hours (Table) 01/14/24 01/14/24 01/15/24 Range/Units 02:33 07:54 05:39 APTT 136.4 H* 21.2 L (22.0-30.0) sec D-Dimer 0.74 H (<0.60) mg/L FEU Chloride 108 H (98-107) mmol/L
--- NOTE | 2024-01-15 07:40 | P.PCN ---
Date of Procedure: 01/15/24 Indications for Procedure: Pre-Op Diagnosis: Recurrent episodes of Syncope. Post-Op Diagnosis: [Recurrent episodes of syncope] Procedure: Loop Recorder Insertion. Clinical History: [This gentleman has history of hypertension hyperlipidemia and syncope for which he had a previous event monitor that did not reveal any significant rhythm abnormalities. However he came into the hospital with chest pain and equally focal ST segment changes underwent cardiac cath which revealed minor noncritical CAD. However because of history of recurrent episodes of syncope and the previous unsuccessful or unknown yielding event monitor, he was advised a loop recorder. I came in and saw the patient yesterday explained to him the rationale risks benefits and options. He understood all details and wished to proceed with the procedure.] Procedure: Under strict aseptic precautions and local anesthesia in the left fourth intercostal space a stab incision was made with the tool provided. Patient received intravenous antibiotic as the procedure began. Using a plunger device along with the loop recorder I advanced it in the lateral direction in the fourth intercostal space and then using a plunger the device was advanced into the subcutaneous location. The device was therefore placed in the left fourth intercostal space in the lateral direction. Device was interrogated the signal was excellent with 0.55 mV. The device was activated and the settings were set for a syncope protocol. The loop recorder incident response consultant is [employer] the device is revealed Reveal CHAVA Q model LNQ11 serial number [id number]. Moderate conscious sedation time was 10 minutes. Patient was administered Versed. Oxygen saturation hemodynamic and EKG were monitored closely Patient tolerated procedure well without any complication. There was trivial blood loss. Discussed details with the patient. No family is available. Patient will be discharged per the admitting physician. Discharge instructions were given. Appointment will be made in 1 week in the office for a device check and office visit.
[2024-01-15] MEDS: LOSARTAN 50 MG TAB PO SCH (08:10)
[2024-01-15 08:14] LABS: Glucose,Whole Blood 88 mg/dL (70-110)
[2024-01-15] MEDS ORDERED: ASPIRIN 325 MG TAB PO SCH (09:00)
[2024-01-15 09:09] LABS: LDL Cholesterol,Calculated 70.1 mg/dL (0.0-131.0)
[2024-01-15] MEDS: amLODIPine 5 MG TAB PO SCH (12:40)
[2024-01-15] MEDS: hydroCHLOROthiazide 12.5 MG CAP PO SCH (13:33)
[2024-01-15 16:25] LABS: Glucose,Whole Blood 93 mg/dL (70-110)
[2024-01-16] MEDS: LOSARTAN 50 MG TAB PO SCH (07:58)
[2024-01-16 08:03] LABS: Platelet Count 492 k/uL (150-450)
[2024-01-16] MEDS: hydrALAZINE HCL 25 MG TAB PO SCH (12:40)
[2024-01-16] MEDS ORDERED: hydrALAZINE HCL 20 MG/ML 1 ML VIAL IVP PRN (12:49)
--- NOTE | 2024-01-16 13:04 | P.PN ---
Subjective Progress Note Date: 01/16/24 The patient is a 53-year-old male with history of chronic tobacco use prior history of smoking who presented to the hospital with symptoms of syncope, details are not clear. He had some chest discomfort. In the emergency room he was in sinus mechanism with incomplete right bundle branch block and J-point elevation. He underwent coronary angiography by Dr. Sullivan and was found to have mild obstructive disease with no high-grade stenosis. He is feeling well this morning, tired but denies any chest discomfort, dizziness or palpitations. He continues to be in sinus bradycardia. His blood pressure is stable. His lab showed a troponin of less than 0.012. January 14: The patient feels well this morning, he denies any dizziness or palpitations. He has mild chest discomfort. He continues to be in sinus mechanism. His echocardiogram showed an ejection fraction of 45 to 50% with no significant valvular disease. His lab data showed no evidence of myocardial infarction and his TSH was normal. He has recurrent syncope in the past and had event monitor as an outpatient that showed no evidence of malignant arrhythmia. He is followed on a regular basis by Dr. Carpio. 01/15 Patient has been transferred out of the intensive care unit is seen today on the cardiac stepdown unit. Loop recorder was placed by Dr. Carpio. Patient states his breathing is okay. No chest pain. Blood pressure readings have been elevated 144/104-154/97. Patient has been continued on amlodipine 5 mg twice daily, hydrochlorothiazide 12.5 mg daily, losartan 100 mg daily. Medications: Aspirin, Lipitor 80 mg daily, losartan 25 mg daily PHYSICAL EXAMINATION: Blood pressure 155/90 heart rate 42 LUNGS: Clear to auscultation HEART: Regular rate and rhythm, S1, S2. No S3. No systolic murmur ABDOMEN: Soft, nontender, no organomegaly EXTREMETIES: No edema, right radial pulse intact IMPRESSION: 1. Chest discomfort with no evidence of myocardial infarction or significant obstructive disease 2. Syncope of unclear etiology, no evidence of malignant arrhythmia so far, recurrent, prior workup negative 3. Prior history of smoking 4. Sinus bradycardia 5. Hypertension PLAN: 1. Increase physical activity 2. Add hydralazine 25 mg 3 times daily 3. Status post loop recorder implantation 4. Patient is cleared for discharge home today and follow-up as an outpatient with Dr. Carpio Nurse practitioner note has been reviewed, I agree with documented findings and plan of care. Patient was seen and examined. Objective - Vital Signs Vital signs: Vital Signs Temp 97.9 F 01/16/24 07:50 Pulse 84 01/16/24 09:30 Resp 17 01/16/24 07:50 BP 147/88 01/16/24 09:30 Pulse Ox 95 01/16/24 07:50 FiO2 Intake & Output 01/15/24 01/16/24 01/16/24 18:59 06:59 18:59 Intake Total 100 360 Output Total 475 350 Balance -375 -350 360 Weight 61.3 kg Intake: IV 100 Oral 360 Output: Urine 475 350 Other: Voiding Method Urinal Urinal Urinal # Voids 3 2 - Labs CBC & Chem 7: 01/16/24 07:43 01/15/24 05:39 Labs: Abnormal Lab Results - Last 24 Hours (Table) 01/16/24 Range/Units 07:43 Plt Count 492 H (150-450) k/uL
[2024-01-16] MEDS: hydrALAZINE HCL 20 MG/ML 1 ML VIAL IVP PRN (13:07)
--- NOTE | 2024-01-16 16:14 | CT ---
EXAMINATION TYPE: CT brain wo con CT DLP: 1125.4 mGycm, Automated exposure control for dose reduction was used. DATE OF EXAM: 01/16/2024 3:55 PM COMPARISON: 01/01/2023. CLINICAL INDICATION: Male, 53 years old with history of fall at home, Fall at home. TECHNIQUE: Brain: Axial CT images of the brain were obtained with coronal and sagittal reformats created and rev iewed. Contrast used: None. Oral contrast used: None. FINDINGS: Brain: Extra-axial spaces: No abnormal extra-axial fluid collections. Ventricular system: Within normal limits Cerebral parenchyma: No acute intraparenchymal hemorrhage or mass effect. The kaur-white junction is well differentiated. Cerebellum: Unremarkable. Mass effect: No evidence of midline shift. Intracranial vasculature: unremarkable Soft tissues: Normal. Calvarium/osseous structures: No depressed skull fracture. Paranasal sinuses and mastoid air cells: Mild scattered paranasal sinus disease. Visualized orbits: Orbital contents are intact. IMPRESSION: No acute intracranial process. [facility], , 01/16/2024 4:12 PM
[2024-01-16] MEDS: HYDROcodone/APAP 5-325MG 1 EACH TAB PO PRN (18:08)
[2024-01-16] MEDS: ONDANSETRON 4 MG/2 ML VIAL IVP PRN (18:08)
[2024-01-16] MEDS: SUMAtriptan succinate 50 MG TAB PO STA (18:08)
[2024-01-16] MEDS: ONDANSETRON 4 MG/2 ML VIAL IVP STA (20:53)
[2024-01-16] MEDS: METOCLOPRAMIDE 10 MG TAB PO SCH (23:56)
[2024-01-17 11:58] VITALS: RESP 18
[2024-01-17 12:04] VITALS: TEMP 97.8
--- NOTE | 2024-01-17 14:40 | P.PN ---
Subjective Progress Note Date: 01/17/24 The patient is a 53-year-old male with history of chronic tobacco use prior history of smoking who presented to the hospital with symptoms of syncope, details are not clear. He had some chest discomfort. In the emergency room he was in sinus mechanism with incomplete right bundle branch block and J-point elevation. He underwent coronary angiography by Dr. Sullivan and was found to have mild obstructive disease with no high-grade stenosis. He is feeling well this morning, tired but denies any chest discomfort, dizziness or palpitations. He continues to be in sinus bradycardia. His blood pressure is stable. His lab showed a troponin of less than 0.012. January 14: The patient feels well this morning, he denies any dizziness or palpitations. He has mild chest discomfort. He continues to be in sinus mechanism. His echocardiogram showed an ejection fraction of 45 to 50% with no significant valvular disease. His lab data showed no evidence of myocardial infarction and his TSH was normal. He has recurrent syncope in the past and had event monitor as an outpatient that showed no evidence of malignant arrhythmia. He is followed on a regular basis by Dr. Carpio. 01/15 Patient has been transferred out of the intensive care unit is seen today on the cardiac stepdown unit. Loop recorder was placed by Dr. Carpio. Patient states his breathing is okay. No chest pain. Blood pressure readings have been elevated 144/104-154/97. Patient has been continued on amlodipine 5 mg twice daily, hydrochlorothiazide 12.5 mg daily, losartan 100 mg daily. 01/16 Yesterday, patient was cleared for discharge from cardiology. We had added in hydralazine for blood pressure control. Patient apparently developed migraine headache and workup was done for that. Patient denies having chest pain, shortness of breath, palpitations. Blood pressure 122/90, heart rate 117, pulse ox 96% on room air. Medications: Aspirin, Lipitor 80 mg daily, losartan 25 mg daily PHYSICAL EXAMINATION: Blood pressure 155/90 heart rate 42 LUNGS: Clear to auscultation HEART: Regular rate and rhythm, S1, S2. No S3. No systolic murmur ABDOMEN: Soft, nontender, no organomegaly EXTREMETIES: No edema, right radial pulse intact IMPRESSION: 1. Chest discomfort with no evidence of myocardial infarction or significant obstructive disease 2. Syncope of unclear etiology, no evidence of malignant arrhythmia so far, r ecurrent, prior workup negative 3. Prior history of smoking 4. Sinus bradycardia 5. Hypertension PLAN: 1. Increase physical activity 2. Continue hydralazine 25 mg 3 times daily 3. Status post loop recorder implantation 4. Patient is cleared for discharge home today and follow-up as an outpatient with Dr. Carpio in 1 week 5. Cardiology will sign off this case and follow on an as-needed basis. Please reconsult for any new concerns. Nurse practitioner note has been reviewed, I agree with documented findings and plan of care. Patient was seen and examined. Objective - Vital Signs Vital signs: Vital Signs Temp 97.8 F 01/17/24 08:00 Pulse 117 H 01/17/24 08:00 Resp 18 01/17/24 11:58 BP 146/100 01/17/24 11:58 Pulse Ox 93 L 01/17/24 11:58 FiO2 Intake & Output 01/16/24 01/17/24 01/17/24 18:59 06:59 18:59 Intake Total 720 240 Output Total 600 300 200 Balance 120 -300 40 Intake: Oral 720 240 Output: Urine 600 300 200 Other: Voiding Method Urinal Urinal - Labs CBC & Chem 7: 01/16/24 07:43 01/15/24 05:39
--- NOTE | 2024-01-17 14:49 | HP ---
HISTORY AND PHYSICAL CHIEF COMPLAINT: Chest pain. HISTORY OF PRESENT ILLNESS: This 53-year-old white male came to the emergency room with substernal chest pain, shortness of breath, and diaphoresis. He was taken to the [facility]. REVIEW OF SYSTEMS: He has had no nausea, vomiting, melena, hematochezia, hematuria, frequency, incontinence, diabetes, etc. Past medical history, family history, and personal and social histories reveal that he has been on tramadol, hydroxyzine, clonidine, aspirin, Protonix, intramuscular testosterone, Ventolin, and . Past medical history, family history personal and social histories reveal that he used to smoke, but has quit. He has had a spontaneous pneumothorax on the right in the past. He drinks occasionally. He does not know anything about family history except that his mother has had some heart issues. PHYSICAL EXAMINATION: VITAL SIGNS: Normal. HEAD, EARS, EYES, NOSE, MOUTH AND THROAT: Normal. CHEST: Clear. CARDIAC: Demonstrated sinus rhythm with no murmurs or sounds. ABDOMEN: Soft and nontender. EXTREMITIES: Normal. NEUROLOGICAL: He is intact. ASSESSMENT: He is admitted to the hospital with diagnoses, 1. Chest pain. 2. History of hypertension. 3. Family history of heart disease. PLAN: 1. Bedrest. 2. IV fluids. 3. Cardiology consult. 4. Cardiac cath. STEPHANIA / CHARLI: [id number] /
--- NOTE | 2024-01-17 14:49 | DS ---
DISCHARGE SUMMARY CHIEF COMPLAINT: Chest pain. HISTORY OF PRESENT ILLNESS AND PHYSICAL EXAMINATION: Details of this man's history and physical can be found in the initial workup. LABORATORY STUDIES: While he was in the hospital, he had laboratory studies, details of which can be found in the laboratory section of his chart. COURSE IN THE HOSPITAL: After admission, he was placed on bedrest, on intravenous fluids and taken to the laborer [place]. Cardiac cath failed to demonstrate any significant or acute blockages. He has some generalized atherosclerosis. Postoperatively, he did well and it was felt he could go home on the , and he will go home on his usual activity and will follow up in the office in several days. FINAL DIAGNOSES: 1. Chest pain. 2. Atherosclerotic cardiovascular disease. OPERATIONS: Cardiac cath. CONSULTATIONS: Cardiology. STEPHANIA / CHARLI: [id number] /
--- NOTE | 2024-01-17 14:51 | PN ---
PROGRESS NOTE DATE OF SERVICE: 01/16/2024 CHIEF COMPLAINT: STEMI and hypertension. HISTORY: This gentleman was to be discharged yesterday and his antihypertensive medicines were changed. He has suddenly developed hypertensive episode and his discharge was canceled. He denies any headaches or chest pain. He has had no shortness of breath or diaphoresis. PHYSICAL EXAM: CHEST: Clear. CARDIAC EXAM: Normal. ABDOMEN: Soft, nontender. IMPRESSION: 1. Coronary artery disease. 2. Hypertensive urgency. PLAN: Control hypertension and then resume discharge plan. MMODL / IJN: [id number] /
[2024-01-17] MEDS: BUTALB/APAP/CAFF 50-325-40MG TAB PO PRN (16:39)
[2024-01-17 19:31] VITALS: BP 140/102; PULSE 110
--- NOTE | 2024-01-18 05:19 | DS ---
DISCHARGE SUMMARY CHIEF COMPLAINT: Chest pain. HISTORY OF PRESENT ILLNESS AND PHYSICAL EXAMINATION: Details of this man's history and physical can be found in the initial workup. LABORATORY STUDIES: While he is in a hospital, he had laboratory studies, details of which can be found in the laboratory section of his chart. COURSE IN THE HOSPITAL: After he was admitted, he was taken to the technical laboratory asst for cardiac cath where he was identified as not having any critical stenoses. There was generalized atherosclerosis. Postoperatively, he did well. He was to be discharged when his blood pressure is spiked and this was managed. He then developed a severe headache. There was concern of possibility of an intracranial bleed and he was sent for a CT without contrast, which was negative. He felt that this was 1 of his migraines and this was treated and he was improved and blood pressure is doing fairly well on the , and it was felt that he could go home. He will go home on usual activity, diet, medication, and follow up in a week. FINAL DIAGNOSIS: 1. ST-elevation myocardial infarction. 2. Atherosclerotic cardiovascular disease. 3. Coronary artery disease. 4. Hypertension. 5. Migraine headaches. OPERATIONS: Cardiac cath. CONSULTATION: Cardiology, he is improved. MMODL / IJN: [id number] /
== END 2024-01-17 19:04 | disposition home or self-care (01) | DRG 191 ==
LOC: EC 00:05 → 2SICU 01:55 → 3SCARD 01-16 03:13
PROVIDERS: ADMIT Family Medicine; ATTEND Family Medicine
PROC: B2111ZZ Fluoroscopy of Multiple Coronary Arteries using Low Osmolar Contrast (ICD-10-PCS; 2024-01-14)
PROC: 4A023N7 Measurement of Cardiac Sampling and Pressure, Left Heart, Percutaneous Approach (ICD-10-PCS; principal; 2024-01-14 01:22)
PROC: 0JH632Z Insertion of Monitoring Device into Chest Subcutaneous Tissue and Fascia, Percutaneous Approach (ICD-10-PCS; 2024-01-15)
DX: I25.10 Atherosclerotic heart disease of native coronary artery without angina pectoris (principal); R55 Syncope and collapse; G40.909 Epilepsy, unspecified, not intractable, without status epilepticus; I10 Essential (primary) hypertension; J44.89 Other specified chronic obstructive pulmonary disease; I16.0 Hypertensive urgency; I45.10 Unspecified right bundle-branch block; R00.1 Bradycardia, unspecified; E78.5 Hyperlipidemia, unspecified; F17.200 Nicotine dependence, unspecified, uncomplicated; G43.909 Migraine, unspecified, not intractable, without status migrainosus; K59.00 Constipation, unspecified; S00.03XA Contusion of scalp, initial encounter; W18.30XA Fall on same level, unspecified, initial encounter; Y92.002 Bathroom of unspecified non-institutional (private) residence as the place of occurrence of the external cause; Y99.8 Other external cause status; Z79.82 Long term (current) use of aspirin; Z79.899 Other long term (current) drug therapy; Z86.73 Personal history of transient ischemic attack (TIA), and cerebral infarction without residual deficits; Z87.828 Personal history of other (healed) physical injury and trauma; Z82.49 Family history of ischemic heart disease and other diseases of the circulatory system
CPT/HCPCS: 33285; 36415; 70450; 71045; 80048; 80053; 80061; 83605; 84132; 84443; 84484; 85025; 85027; 85049; 85379; 85610; 85730; 93005; 93306; 93458; 96365; 96375; 99285

== ENCOUNTER 2024-07-08 11:33 | Observation (INO) | payer OTHER ==
[2024-07-08 11:54] LABS: Glucose,Whole Blood 110 mg/dL (70-110)
--- NOTE | 2024-07-08 12:08 | ED ---
General Adult HPI - General Chief complaint: Neuro Symptoms/Deficit Stated complaint: Chest pain Time Seen by Provider: 07/08/24 11:50 Source: patient, RN notes reviewed, old records reviewed Mode of arrival: ambulatory Limitations: no limitations - History of Present Illness Initial comments: 53-year-old male history of prior CVA presenting for evaluation of right arm numbness. Symptoms began yesterday evening at approximately 7:30 PM. Patient presents for evaluation at 11:30 AM. His symptoms are improving compared to the onset. He reported only numbness and tingling which was around his lips and in his right arm. He denies weakness. He has a very mild chest discomfort as well. Patient was at work when this occurred he was able to rest and drive himself home. No significant headache. No speech abnormality. - Related Data Home Medications Medication Instructions Recorded Confirmed traMADol HCL 50 mg PO BID PRN 05/11/23 01/14/24 Albuterol Sulfate [Ventolin HFA] 1 puff INHALATION RT-Q8H PRN 01/14/24 01/14/24 Aspirin 81 mg PO DAILY 01/14/24 01/14/24 hydrOXYzine HCL [Atarax] 25 mg PO TID PRN 01/14/24 01/14/24 Losartan Potassium [Cozaar] 100 mg PO DAILY 01/15/24 01/15/24 amLODIPine [Norvasc] 5 mg PO BID 01/15/24 01/15/24 hydroCHLOROthiazide 12.5 mg PO DAILY 01/15/24 01/15/24 Previous Rx's Medication Instructions Recorded Atorvastatin [Lipitor] 80 mg PO DAILY #30 tab 01/15/24 hydrALAZINE HCL [Apresoline] 25 mg PO TID #90 tab 01/16/24 Allergies Allergy/AdvReac Type Severity Reaction Status Date / Time No Known Allergies Allergy Verified 07/08/24 11:41 Review of Systems ROS Statement: Those systems with pertinent positive or pertinent negative responses have been documented in the HPI. ROS Other: All systems not noted in ROS Statement are negative. Past Medical History Past Medical History: Asthma, COPD, CVA/TIA, Hypertension, Osteoarthritis (OA), Seizure Disorder Additional Past Medical History / Comment(s): hx of head injury r/t fall from tree, migraines, spontaneous pneumothorax, states TIA x3, some short term memory loss, many years ago for seizures History of Any Multi-Drug Resistant Organisms: None Reported Past Surgical History: No Surgical Hx Reported Additional Past Surgical History / Comment(s): chest tube insertion right Past Anesthesia/Blood Transfusion Reactions: No Reported Reaction Additional Past Anesthesia/Blood Transfusion Reaction / Comment(s): no blood transfusion Past Psychological History: Anxiety, Depression Smoking Status: Current every day smoker Past Alcohol Use History: None Reported Past Drug Use History: Marijuana - Past Family History Mother Family Medical History: No Reported History General Exam Limitations: no limitations General appearance: alert, in no apparent distress Head exam: Present: atraumatic, normocephalic Eye exam: Present: normal appearance, PERRL ENT exam: Present: normal exam Neck exam: Present: normal inspection. Absent: tenderness, meningismus Respiratory exam: Present: normal lung sounds bilaterally. Absent: respiratory distress, wheezes Cardiovascular Exam: Present: normal rhythm, bradycardia GI/Abdominal exam: Present: soft. Absent: distended, tenderness, guarding Extremities exam: Present: normal inspection, normal capillary refill. Absent: pedal edema, calf tenderness Neurological exam: Present: alert, oriented X3, CN II-XII intact. Absent: motor sensory deficit (Initial NIH of 0-1, question a very subtle drift which is not present with eyes open, on the right upper extremity) Psychiatric exam: Present: normal affect, normal mood Skin exam: Present: warm, dry, intact Course Vital Signs 07/08/24 11:41 Temperature 97.9 F Pulse Rate 59 L Respiratory 18 Rate Blood Pressure 157/90 O2 Sat by Pulse 98 Oximetry - Reevaluation(s) Reevaluation #1: 07/08/24 13:23 Patient reevaluated in the emergency department symptoms resolved, NIH is 0 Medical Decision Making - Medical Decision Making Was pt. sent in by a medical professional or institution (, PA, STAMP PRESS OPERATOR, urgent care, hospital, or half-way...) When possible be specific @ -No Did you speak to anyone other than the patient for history (EMS, parent, family, police, friend...)? What history was obtained from this source @ -No Did you review nursing and triage notes (agree or disagree)? Why? @ -I reviewed and agree with nursing and triage notes Were old charts reviewed (outside hosp., previous admission, EMS record, old EKG, old radiological studies, urgent care reports/EKG's, half-way records)? Report findings @ -No old charts were reviewed Differential CVA Ischemic stroke, hemorrhagic stroke, brain tumor, atypical migraine, Wernicke's encephalopathy, seizure, multiple sclerosis, meningitis, encephalitis, hypoglycemia, Guillain-Ramírez, electrolytes disturbance, myasthenia gravis.... This is not meant to be an all-inclusive list EKG interpreted by me (3pts min.). @ -Sinus bradycardia rate of 44 OH interval 167, QRS duration 105, QTc 383 X-rays interpreted by me (1pt min.). @ -Chest x-ray negative for acute cardiopulmonary findings CT interpreted by me (1pt min.). @CT brain showing age indeterminant left-sided lacunar infarct, no intracranial hemorrhage, CT angiography is negative U/S interpreted by me (1pt. min.). @ -None done What testing was considered but not performed or refused? (CT, X-rays, U/S, la bs)? Why? @ -None What meds were considered but not given or refused? Why? @ -None Did you discuss the management of the patient with other professionals (professionals i.e. , PA, STAMP PRESS OPERATOR, lab, RT, psych nurse, social welfare research worker, shactor helper, teacher, quarantine officer, heel caser)? Give summary @Dr. Kirk will admit Was smoking cessation discussed for >3mins.? @ -No Was critical care preformed (if so, how long)? @ -No Were there social determinants of health that impacted care today? How? (Homelessness, low income, unemployed, alcoholism, drug addiction, transportation, low edu. Level, literacy, decrease access to med. care, detention, rehab)? @ -No Was there de-escalation of care discussed even if they declined (Discuss DNR or withdrawal of care, Hospice)? DNR status @ -No What co-morbidities impacted this encounter? (DM, HTN, Smoking, COPD, CAD, Cancer, CVA, ARF, Chemo, Hep., AIDS, mental health diagnosis, sleep apnea, morbid obesity)? @ -[Prior CVA CAD Was patient admitted / discharged? Hospital course, mention meds given and route, prescriptions, significant lab abnormalities, going to OR and other pertinent info. @ -53-year-old male with left arm numbness which began yesterday evening around 7 PM. Patient has minimal residual symptoms at arrival and this resolves quickly without specific treatment. There is a very subtle drift present initially which completely resolves in the emergency department. NIH of 0. Patient has received CT CT angiography angiography is negative, CT shows an age- indeterminate lacunar infarct on the left. Patient will require further stroke evaluation. Laboratory testing unremarkable. Undiagnosed new problem with uncertain prognosis? @ -[No Drug Therapy requiring intensive monitoring for toxicity (Heparin, Nitro, Insulin, Cardizem)? @ -No Were any procedures done? @ -No Diagnosis/symptom? @TIA Acute, or Chronic, or Acute on Chronic? @Acute Uncomplicated (without systemic symptoms) or Complicated (systemic symptoms)? @ -Default Side effects of treatment? @ -No Exacerbation, Progression, or Severe Exacerbation? @ -No Poses a threat to life or bodily function? How? (Chest pain, [place], [place], pneumonia, PE, COPD, DKA, ARF, appy, cholecystitis, CVA, Diverticulitis, Homicidal, Suicidal, threat to staff... and all critical care pts) @Yes CVA - Lab Data Result diagrams: 07/08/24 12:00 07/08/24 12:00 Lab Results 07/08/24 07/08/24 07/08/24 Range/Units 11:52 12:00 12:00 WBC 10.0 (3.8-10.6) k/uL RBC 5.06 (4.30-5.90) m/uL Hgb 14.1 (13.0-17.5) gm/dL Hct 44.6 (39.0-53.0) % MCV 88.2 (80.0-100.0) fL MCH 27.8 (25.0-35.0) pg MCHC 31.5 (31.0-37.0) g/dL RDW 13.1 (11.5-15.5) % Plt Count 410 (150-450) k/uL MPV 6.9 Neutrophils % 72 % Lymphocytes % 20 % Monocytes % 4 % Eosinophils % 3 % Basophils % 0 % Neutrophils # 7.2 (1.3-7.7) k/uL Lymphocytes # 2.0 (1.0-4.8) k/uL Monocytes # 0.4 (0-1.0) k/uL Eosinophils # 0.3 (0-0.7) k/uL Basophils # 0.0 (0-0.2) k/uL PT 11.1 (10.0-12.5) sec INR 1.0 (<1.2) APTT 22.4 (22.0-30.0) sec Sodium (137-145) mmol/L Potassium (3.5-5.1) mmol/L Chloride (98-107) mmol/L Carbon Dioxide (22-30) mmol/L Anion Gap mmol/L BUN (9-20) mg/dL Creatinine (0.66-1.25) mg/dL Est GFR (CKD-EPI)AfAm (>60 ml/min/1.73 sqM) Est GFR (CKD-EPI)NonAf (>60 ml/min/1.73 sqM) Glucose (74-99) mg/dL POC Glucose (mg/dL) 110 (70-110) mg/dL POC Glu Tie Man ID [facility] Calcium (8.4-10.2) mg/dL Total Bilirubin (0.2-1.3) mg/dL AST (17-59) U/L ALT (4-49) U/L Alkaline Phosphatase (38-126) U/L Creatine Kinase (55-170) U/L Troponin I (0.000-0.034) ng/mL Total Protein (6.3-8.2) g/dL Albumin (3.5-5.0) g/dL 07/08/24 07/08/24 Range/Units 12:00 12:00 WBC (3.8-10.6) k/uL RBC (4.30-5.90) m/uL Hgb (13.0-17.5) gm/dL Hct (39.0-53.0) % MCV (80.0-100.0) fL MCH (25.0-35.0) pg MCHC (31.0-37.0) g/dL RDW (11.5-15.5) % Plt Count (150-450) k/uL MPV Neutrophils % % Lymphocytes % % Monocytes % % Eosinophils % % Basophils % % Neutrophils # (1.3-7.7) k/uL Lymphocytes # (1.0-4.8) k/uL Monocytes # (0-1.0) k/uL Eosinophils # (0-0.7) k/uL Basophils # (0-0.2) k/uL PT (10.0-12.5) sec INR (<1.2) APTT (22.0-30.0) sec Sodium 137 (137-145) mmol/L Potassium 3.9 (3.5-5.1) mmol/L Chloride 99 (98-107) mmol/L Carbon Dioxide 31 H (22-30) mmol/L Anion Gap 7 mmol/L BUN 16 (9-20) mg/dL Creatinine 0.86 (0.66-1.25) mg/dL Est GFR (CKD-EPI)AfAm >90 (>60 ml/min/1.73 sqM) Est GFR (CKD-EPI)NonAf >90 (>60 ml/min/1.73 sqM) Glucose 97 (74-99) mg/dL POC Glucose (mg/dL) (70-110) mg/dL POC Glu Tie Man ID Calcium 9.4 (8.4-10.2) mg/dL Total Bilirubin 0.6 (0.2-1.3) mg/dL AST 35 (17-59) U/L ALT 26 (4-49) U/L Alkaline Phosphatase 114 (38-126) U/L Creatine Kinase 159 (55-170) U/L Troponin I <0.012 (0.000-0.034) ng/mL Total Protein 6.9 (6.3-8.2) g/dL Albumin 4.1 (3.5-5.0) g/dL Critical Care Time Critical Care Time: Yes Total Critical Care Time: 35 Disposition Clinical Impression: Transient cerebral ischemia Disposition: ADMITTED IP TO THIS HOSP Condition: Stable Is patient prescribed a controlled substance at d/c from ED?: No Referrals: Gasper Kirk MD [Primary Care Provider] - 1-2 days Time of Disposition: 13:26
[2024-07-08 12:34] LABS: Partial Thromboplastin Time 22.4 sec (22.0-30.0); Prothrombin Time 11.1 sec (10.0-12.5)
--- NOTE | 2024-07-08 12:37 | CT ---
EXAMINATION TYPE: CT brain wo con DATE OF EXAM: 07/08/2024 COMPARISON: CLINICAL INDICATION: Male, 53 years old with history of Neuro deficit, acute, stroke suspected; PHH, Neuro deficit TECHNIQUE: CT scan of the head is performed without contrast. CT DLP: 1127.[address] CTDI: mGy Automated exposure control for dose reduction was used. FINDINGS: There is no acute intracranial hemorrhage or midline shift identified. There is diffuse v entricular and sulcal prominence consistent with diffuse age-related cerebral atrophy. Decreased atte nuation noted in the region of the left internal capsule posterior limb reflect recent lacunar infarc t. Correlate clinically. There is low-attenuation in the periventricular white matter consistent with chronic small vessel ischemic change. The globes are intact and the visualized sinuses are clear. IMPRESSION: Left-sided lacunar infarct of indeterminate age difficult to exclude. Correlate clinicall y. No acute intracranial hemorrhage or midline shift. There is diffuse age-related cerebral atrophy and chronic small vessel ischemic change noted. [facility], , 07/08/2024 12:34 PM
[2024-07-08 12:44] LABS: Basophils % (A) 0 %; Eosinophils # (A) 0.3 k/uL (0-0.7); Eosinophils % (A) 3 %; HCT 44.6 % (39.0-53.0); HGB 14.1 gm/dL (13.0-17.5); Lymphocytes % (A) 20 %; MCH 27.8 pg (25.0-35.0); MCHC 31.5 g/dL (31.0-37.0); MCV 88.2 fL (80.0-100.0); Mean Platelet Volume 6.9; Monocytes # (A) 0.4 k/uL (0-1.0); Monocytes % (A) 4 %; Neutrophils # (A) 7.2 k/uL (1.3-7.7); Neutrophils % (A) 72 %; Platelet Count 410 k/uL (150-450); RBC 5.06 m/uL (4.30-5.90); RDW 13.1 % (11.5-15.5)
--- NOTE | 2024-07-08 13:02 | XR ---
EXAMINATION TYPE: XR chest 2V DATE OF EXAM: 07/08/2024 12:57 PM COMPARISON: 01/14/2024 CLINICAL INDICATION: Male, 53 years old with history of altered mental status: Shortness of breath TECHNIQUE: XR chest 2V views of the chest are obtained. FINDINGS: Scattered senescent parenchymal changes noted. Hyperinflation compatible with COPD. No evidence for infiltrate. No evidence for atelectasis. Heart size is stable. Mediastinal structures are stable and grossly unremarkable. No evidence for hilar prominence. Degenerative changes dorsal spine. IMPRESSION: 1. No evidence for acute pulmonary disease. [facility], , 07/08/2024 1:00 PM
[2024-07-08 13:03] LABS: ALT 26 U/L (4-49); AST 35 U/L (17-59); African American GFR (CKD) >90 (>60 ml/min/1.73 sqM); Albumin 4.1 g/dL (3.5-5.0); Alkaline Phosphatase 114 U/L (38-126); Anion Gap 7 mmol/L; Blood Urea Nitrogen 16 mg/dL (9-20); Calcium 9.4 mg/dL (8.4-10.2); Carbon Dioxide 31 mmol/L (22-30); Chloride 99 mmol/L (98-107); Creatine Kinase 159 U/L (55-170); Glucose 97 mg/dL (74-99); Non-African American GFR(CKD) >90 (>60 ml/min/1.73 sqM); Potassium 3.9 mmol/L (3.5-5.1); Sodium 137 mmol/L (137-145); Total Bilirubin 0.6 mg/dL (0.2-1.3); Total Protein 6.9 g/dL (6.3-8.2)
--- NOTE | 2024-07-08 13:21 | CT ---
EXAMINATION TYPE: CT angio head neck DATE OF EXAM: 07/08/2024 12:54 PM COMPARISON: None CLINICAL INDICATION: Male, 53 years old with history of Neuro deficit, acute, stroke suspected, Neuro deficit; History of CVA, TECHNIQUE: Axially acquired helical CT Angiogram of the Neck was obtained with and without contrast. Axial images are supplemented with coronal and sagittal MIP reconstructions. 3D reconstructions were also performed and were post-processed at an independent workstation. Estimated carotid stenosis was calculated using the NASCET criteria. Contrast CTA of [place] was performed 3-D recons truction imaging obtained at a separate workstation. IV CONTRAST: without and with IV Contrast, patient injected with 65 ml mL of Isovue 370. (None if emp ty) CT DLP: 1543.5 mGycm, Automated exposure control for dose reduction was used. FINDINGS: NECK: Right carotid system: Mild plaque is seen of the right common carotid artery. There is mild plaque a lso noted at the carotid bulb and proximal ICA. No significant diameter reduction. ECA is patent. Right vertebral artery appears unremarkable. Left carotid system: Mild plaque is seen of the left common carotid artery. There is mild plaque als o noted at the carotid bulb and proximal ICA. No significant diameter reduction. ECA is patent. Lef t vertebral artery appears unremarkable. BRAIN: Vertebrobasilar system as well as intracranial portions of the internal carotid arteries and their ma xenia tributaries are patent. I do not see evidence for sizable aneurysm or vascular malformation. Pl ease note MRI provides greater sensitivity and specificity. Visualized brain appears grossly unremar kable. IMPRESSION: 1. No evidence for hemodynamically significant stenosis at the carotid bifurcations. No significant diameter reduction to account for the patient's symptoms. 2. No evidence for intracranial aneurysm or high-grade stenosis. [facility], , 07/08/2024 12:59 PM
[2024-07-08] MEDS: ASPIRIN 325 MG TAB PO STA (13:37)
[2024-07-08] MEDS: CLOPIDOGREL 75 MG TAB PO SCH (16:08)
--- NOTE | 2024-07-08 16:39 | P.CNNES ---
History of Present Illness Consult date: 07/08/24 Requesting physician: Ethan Alva Reason for Consult: TIA History of Present Illness: Patient is a 53-year-old right-handed male with history of hypertension, previous TIA, came to the hospital today at 11:33 AM with chest pain, and right arm numbness. 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 He went to work at 3 PM yesterday as usual and was doing well. At around 7:15 PM he started noticing chest pain and his whole right arm became numb. He also noticed perioral numbness. He was talking slow, but there was no slurring and he was not having any aphasia. There was no facial droop noted or any loss of vision or double vision. Denied any focal weakness. He could see but overall vision was a little shaky. 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 Patient states the perioral numbness lasted for about half an hour. The right arm numbness lasted till midnight and then went away. He stayed home, thinking the symptoms will go away. He went to sleep. He woke up this morning and still was having some chest discomfort, therefore decided to come to the ER. All his neurological symptoms have resolved. Vital signs on arrival blood pressure 157/90, pulse rate 59 temperature 97.9. Blood test shows normal CBC, PT PTT, normal CMP, normal troponin and CK. EKG showed sinus bradycardia. Possible right ventricular conduction delay. Chest x-ray showed no evidence for acute pulmonary disease. CTA of head and neck showed no evidence for hemodynamically significant stenosis at the carotid bifurcations. No significant diameter reduction to account for the patient's symptoms. No evidence for intracranial aneurysm or high-grade stenosis. CT head showed left-sided lacunar infarct of indeterminate age, difficult to exclude. Correlate clinically. No acute intracranial hemorrhage or midline shift. There is diffuse age-related cerebral atrophy and chronic small vessel ischemic change noted. I personally reviewed CT head, and appears the "lacunar infarct" reported above, appears some small vessel disease rather than lacunar infarct. Patient's last 2D echo from 01/14/2024 revealed mildly impaired LV function with EF around 45%. Mildly increased left atrial diameter. No thrombus. Home medications include losartan, amlodipine, aspirin 81 mg, Lipitor 80 mg, HCTZ, albuterol, tramadol and Protonix. Patient states he is compliant with medications, including aspirin. Patient was not a candidate for TNK, as his symptoms have been present for more than 12 hours. Patient has smoked half pack per day for 17 to 18 years, quit 20 years ago. Denies any alcohol use. Patient has hypertension, controlled, denies diabetes. He states he has history of an SD in December 2023, and has history of possible TIA while ago. His symptoms consisted of being tired, speech was slurred and right arm went numb. The symptoms did go away with no residual deficits. Review of Systems All pertinent positive and negative review of systems mentioned in the HPI, otherwise unremarkable. Past Medical History Past Medical History: Asthma, COPD, CVA/TIA, Hypertension, Osteoarthritis (OA), Seizure Disorder Additional Past Medical History / Comment(s): hx of head injury r/t fall from tree, migraines, spontaneous pneumothorax, states TIA x3, some short term memory loss, many years ago for seizures History of Any Multi-Drug Resistant Organisms: None Reported Past Surgical History: No Surgical Hx Reported Additional Past Surgical History / Comment(s): chest tube insertion right Past Anesthesia/Blood Transfusion Reactions: No Reported Reaction Additional Past Anesthesia/Blood Transfusion Reaction / Comment(s): no blood transfusion Past Psychological History: Anxiety, Depression Smoking Status: Current every day smoker Past Alcohol Use History: None Reported Past Drug Use History: Marijuana - Past Family History Mother Family Medical History: No Reported History Medications and Allergies Home Medications Medication Instructions Recorded Confirmed Type traMADol HCL 50 mg PO BID PRN 05/11/23 07/08/24 History Albuterol Sulfate [Ventolin HFA] 1 puff INHALATION RT-Q8H PRN 01/14/24 07/08/24 History Aspirin 81 mg PO DAILY 01/14/24 07/08/24 History hydrOXYzine HCL [Atarax] 25 mg PO TID PRN 01/14/24 07/08/24 History Atorvastatin [Lipitor] 80 mg PO DAILY #30 tab 01/15/24 07/08/24 Rx Losartan Potassium [Cozaar] 100 mg PO DAILY 01/15/24 07/08/24 History amLODIPine [Norvasc] 5 mg PO BID 01/15/24 07/08/24 History hydroCHLOROthiazide 12.5 mg PO DAILY 01/15/24 07/08/24 History hydrALAZINE HCL [Apresoline] 25 mg PO TID #90 tab 01/16/24 07/08/24 Rx Multivitamins, Thera [Multivitamin 1 tab PO DAILY 07/08/24 07/08/24 History (formulary)] Pantoprazole [Protonix] 40 mg PO BID 07/08/24 07/08/24 History Allergies Allergy/AdvReac Type Severity Reaction Status Date / Time No Known Allergies Allergy Verified 07/08/24 14:10 Physical Examination - Vital Signs Vital Signs: Vital Signs Temp Pulse Resp BP Pulse Ox 07/08/24 13:27 49 L 18 145/96 97 07/08/24 11:41 97.9 F 59 L 18 157/90 98 Intake and Output 07/08/24 07/08/24 07/08/24 06:59 14:59 22:59 Other: Weight 68.039 kg Patient is a middle aged male, in no acute distress. Patient is alert awake oriented to time place and person. Speech and language functions are normal. Patient can name and repeat very well. No aphasia or dysarthria. Attention, concentration and fund of knowledge is adequate. On cranial nerve examination, pupils are equal, round and reacting to light, visual iniguez are full on confrontation, with no neglect on double simultaneous stimulation. Extraocular muscles are intact with no nystagmus. Face is symmetric, tongue protrudes to the midline. Palatal elevation and sensation n ormal, hearing and shoulder shrug normal, facial sensation normal. On muscle strength testing, there is right pronator drift, about 20 degree and the strength is normal in arms and legs distally and proximally, with the exception of right outreach director which is about 5-4+, but normal on the left. Deep tendon reflexes are symmetric 1 at the biceps and brachioradialis, 2 at the knees and ankles and plantars downgoing. Sensory to touch is equal with no neglect on double simultaneous stimulation. Cerebellar function showed no ataxia for [id number] testing. No dysdiadochokinesia. No ataxia for [id number] testing on either side. Tone and bulk of muscles normal. Gait deferred.. On general examination, there is no carotid bruit or murmur, S1-S2 audible. Chest is clear on consultation. Abdomen is soft nontender. No organomegaly, bowel sounds present. Peripheral pulses are present. No peripheral edema. Results - Laboratory Findings CBC and BMP: 07/08/24 12:00 07/08/24 12:00 Abnormal Lab Findings: Abnormal Labs 07/08/24 12:00 Carbon Dioxide 31 H Assessment and Plan Assessment: * Possible stroke/TIA, manifesting with right arm numbness, perioral numbness. His symptoms seems to have resolved, but on examination patient has mild right pronator drift with slightly decreased right outreach director. Otherwise the examination is nonfocal. * Hypertension hyperlipidemia * Hyperlipidemia * Ex tobacco use * Previous history of possible TIA x 3 * Coronary artery disease * Marijuana use Plan: MRI of the brain without contrast, evaluate for acute CVA 2-D echo with bubble study to rule out PFO CTA head and neck showed: No evidence of hemodynamically significant stenosis at the carotid bifurcations. No significant diameter reduction to account for the patient's symptoms. No evidence for intracranial aneurysm or high-grade stenosis. Fasting a.m. lipid panel Hemoglobin A1c Permissive hypertension for next 24-48 hours Patient was on aspirin 81 mg daily, compliant. We will start Plavix 75 mg daily for now. Further recommendations based upon MRI and other test results. Neuro checks every 4 hours. Telemetry monitoring rule out any arrhythmia PT, OT, speech therapy DVT prophylaxis: Lovenox 40 mg subcu daily Neurology will continue to follow. Thank you for the consult.
[2024-07-08] MEDS: ENOXAPARIN 40 MG/0.4 ML SYRINGE SQ SCH (17:06)
[2024-07-08] MEDS: ATORVASTATIN 80 MG TAB PO SCH (23:45)
[2024-07-09] MEDS: traMADol 50 MG TAB PO PRN (05:21)
[2024-07-09] MEDS: ASPIRIN 325 MG TAB PO SCH (08:13)
--- NOTE | 2024-07-09 08:13 | HP ---
HISTORY AND PHYSICAL CHIEF COMPLAINT: Chest pain and numbness in the right arm. HISTORY OF PRESENT ILLNESS: This 53-year-old white male with a prior history of coronary artery disease, came to the office with the above-mentioned complaints. He stated this did not feel like when he had an PR in the past. He also apparently has had 2 CVAs or TIAs. His EKG was unremarkable. Because we could not obtain stat blood work, he was referred to the emergency room where he was evaluated, thought to be having a TIA. REVIEW OF SYSTEMS: Not particularly enlightening. He did not have any diaphoresis, confusion, headache, etc. Past medical history, family history, personal and social histories reveal that he is on losartan, hydralazine, aspirin, hydrochlorothiazide, pantoprazole, atorvastatin, hydroxyzine, Ventolin. He does not smoke. PHYSICAL EXAMINATION: VITAL SIGNS: Blood pressure 134/80 with a pulse of 57, respirations of 34, and he is afebrile. GENERAL: He appeared to be well developed, well nourished, no acute distress. SKIN: Color is normal. Skin is warm and dry. Lymph nodes are not enlarged. HEAD, EARS, EYES, NOSE, MOUTH AND THROAT: Normal. Carotids normal. CHEST: Clear. CARDIAC: Normal with sinus rhythm. ABDOMEN: Soft and nontender. There is no visceromegaly or masses. EXTREMITIES: Normal. NEUROLOGICAL: He seemed to be intact. He did not seem to have significant weakness in the right upper extremity. He is admitted to the hospital with diagnoses of: 1. Chest pain. 2. Hypoesthesia in the right arm. 3. Possible transient ischemic attack. 4. History of coronary artery disease and 2 myocardial infarctions. 5. History of previous cerebrovascular accident. 6. Hypertension. PLAN: 1. Bedrest. 2. IV fluids. 3. Serial EKGs and enzymes. 4. CTA. 5. Neurology consult. MMODL / IJN: [id number] /
--- NOTE | 2024-07-09 10:20 | MR ---
EXAMINATION TYPE: MR brain wo con DATE OF EXAM: 07/09/2024 10:04 AM COMPARISON: 07/08/2024. CLINICAL INDICATION: Male, 53 years old with history of Stroke/TIA; PHH, Neuro deficit, evaluate for stroke/TIA. TECHNIQUE: Multi planar, multi sequence imaging was performed through the brain including: T1, T2, In version recovery, Diffusion weighted imaging, and gradient echo imaging. No gadolinium was given. FINDINGS: The kaur-white junctions, ventricular system, basal cisterns appear unremarkable. Scattered foci of high T2 signal intensity are seen within the periventricular white matter. Midline structures show n o abnormality. Diffusion-weighted imaging shows no evidence of restricted diffusion. The susceptibili ty weighted images do not reveal any evidence for micro-hemorrhage. Blooming artifact compatible with cerebellar development of venous anomaly. The bone marrow signal is within normal limits. Paranasal sinuses and mastoid air cells: No significant paranasal sinus disease. Visualized orbits: Orbital contents are intact. IMPRESSION: 1. No evidence of intracranial mass or acute/subacute infarct. 2. Nonspecific white matter changes, likely secondary to small vessel ischemic disease. [facility], , 07/09/2024 10:18 AM
[2024-07-09 10:53] LABS: Chol/HDL Ratio 2.49 Ratio; LDL Cholesterol,Calculated 26.8 mg/dL (0.0-131.0)
[2024-07-09] MEDS ORDERED: ALBUTEROL NEBULIZED 2.5 MG/3 ML INHALATION PRN (11:15)
[2024-07-09] MEDS ORDERED: hydrOXYzine HCL 25 MG TAB PO PRN (11:15)
[2024-07-09 11:49] VITALS: BMI 20.8
[2024-07-09] MEDS: hydrALAZINE HCL 25 MG TAB PO SCH (15:22)
[2024-07-09] MEDS: PANTOPRAZOLE 40 MG TABLET PO SCH (15:22)
--- NOTE | 2024-07-09 15:23 | P.PN ---
Subjective Progress Note Date: 07/09/24 Patient was seen for follow-up. Patient's symptoms have resolved. No new concerns. Objective - Vital Signs Vital signs: Vital Signs Temp 98.1 F 07/09/24 11:15 Pulse 53 L 07/09/24 11:24 Resp 16 07/09/24 11:24 BP 160/88 07/09/24 11:24 Pulse Ox 98 07/09/24 11:24 FiO2 Intake & Output 07/08/24 07/09/24 07/09/24 18:59 06:59 18:59 Intake Total 120 Balance 120 Weight 68.039 kg 66 kg 66 kg Intake: Oral 120 Other: Voiding Method Toilet # Voids 1 - Exam Mental status, speech and language functions are normal. Cranial nerves are no rmal. Muscle strength normal. No ataxia. - Labs CBC & Chem 7: 07/08/24 12:00 07/08/24 12:00 Labs: Abnormal Lab Results - Last 24 Hours (Table) 07/08/24 07/09/24 Range/Units 12:00 05:52 Carbon Dioxide 31 H (22-30) mmol/L HDL Cholesterol 36.20 L (40.00-60.00) mg/dL Assessment and Plan Assessment: * Possible stroke/TIA, manifesting with right arm numbness, perioral numbness. 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 Otherwise the examination is nonfocal. * Hypertension * Hyperlipidemia * Ex tobacco use * Previous history of possible TIA x 3 * Coronary artery disease * Marijuana use Plan: MRI of the brain without contrast, revealed no evidence of intracranial mass or acute/subacute infarct. Nonspecific white matter changes, likely secondary to small vessel ischemic disease. I personally reviewed MRI agree with the findings. 2-D echo with bubble study to rule out PFO, still pending. CTA head and neck showed: No evidence of hemodynamically significant stenosis at the carotid bifurcations. No significant diameter reduction to account for the patient's symptoms. No evidence for intracranial aneurysm or high-grade stenosis. Fasting a.m. lipid panel, with cholesterol 90, LDL 26, HDL 36, triglycerides 135. Lipids are well-controlled. Continue home dose of Lipitor 80 mg daily. Hemoglobin A1c 5.5. Optimize control of blood pressure. Patient was on aspirin 81 mg daily, compliant. We will start Plavix 75 mg daily for now. Recommend continuing DAPT for 21 days, then stop aspirin and continue Plavix indefinitely. Neuro checks every 4 hours. Telemetry monitoring rule out any arrhythmia PT, OT, speech therapy DVT prophylaxis: Lovenox 40 mg subcu daily Neurologically clear, if the 2D echo report comes back normal.
[2024-07-09] MEDS: amLODIPine 5 MG TAB PO SCH (20:05)
--- NOTE | 2024-07-09 23:41 | PN ---
PROGRESS NOTE CHIEF COMPLAINT: Hypoesthesias in the right upper extremity. HISTORY OF PRESENT ILLNESS: This gentleman is doing about the same. He still has hypoesthesias in the right arm. He is not having any chest pain or shortness of breath. All of his studies have been normal so far. PHYSICAL EXAMINATION: CHEST: Clear. CARDIAC: Normal. ABDOMEN: Soft and nontender. IMPRESSION: 1. Hypoesthesias in the right arm. 2. History of coronary artery disease. PLAN: Wait for further studies to be returned. In the meantime, increase activity. MMODL / IJN: [id number] /
[2024-07-10] MEDS: ASPIRIN 81 MG PO SCH (07:52)
[2024-07-10] MEDS: LOSARTAN 50 MG TAB PO SCH (07:52)
[2024-07-10] MEDS: hydroCHLOROthiazide 12.5 MG CAP PO SCH (07:52)
--- NOTE | 2024-07-10 07:55 | CA ---
Transthoracic Echo Report Name: Ethan Swartz Age: 53 Gender: M : 1970 Exam Date: 07/09/2024 13:50 Exam Location: [facility] Ht (in): 70 Wt (lb): 150 Ordering Physician: Kitty Mcclure MD Attending/Referring Phys: [employer] Pablito Wan RDCS Procedure CPT: Indications: stroke/tia Cardiac Hx: CAD, 2 CVA, MT, HTN Technical Quality: Good Contrast 1: Agitated Saline Total Dose (mL): 10 Contrast 2: Total Dose (mL): MEASUREMENTS (Male / Female) Normal Values 2D ECHO LV Diastolic Diameter PLAX 5.0 cm 4.2 - 5.9 / 3.9 - 5.3 cm LV Systolic Diameter PLAX 3.5 cm IVS Diastolic Thickness 0.7 cm 0.6 - 1.0 / 0.6 - 0.9 cm LVPW Diastolic Thickness 0.7 cm 0.6 - 1.0 / 0.6 - 0.9 cm LV Relative Wall Thickness 0.3 RV Internal Dim ED PLAX 3.1 cm LVOT Diameter 2.1 cm LA Systolic Diameter LX 3.5 cm 3.0 - 4.0 / 2.7 - 3.8 cm LA Volume 55.4 cm??? 18 - 58 / 22 - 52 cm??? LA Volume Index 30.3 cm???/m??? 16 - 28 cm???/m??? DOPPLER AV Peak Velocity 129.4 cm/s AV Peak Gradient 6.7 mmHg AV Mean Velocity 84.5 cm/s AV Mean Gradient 3.2 mmHg AV Velocity Time Integral 26.1 cm MV Area PHT 2.8 cm??? Mitral E Point Velocity 71.1 cm/s Mitral A Point Velocity 63.0 cm/s Mitral E to A Ratio 1.1 MV Deceleration Time 272.4 ms Right Atrial Pressure 10.0 mmHg FINDINGS Left Ventricle Left ventricular ejection fraction is estimated at 55-60 %. Normal Left ventricular size, wall thickness, systolic function with no obvious regional wall motion abnormalities. Right Ventricle Normal right ventricular size and function. Unable to estimate the right ventricular systolic pressure. Right Atrium Normal right atrial size. Negative agitated saline bubble study for right to left shunt. Left Atrium Mildly increased left atrial volume. Mitral Valve Mitral valve thickened. No mitral stenosis. Trace mitral regurgitation. Aortic Valve Trileaflet aortic valve. No aortic valve stenosis or regurgitation. Tricuspid Valve Structurally normal tricuspid valve. No tricuspid stenosis. No tricuspid regurgitation. Pulmonic Valve Structurally normal pulmonic valve. No pulmonic stenosis. No pulmonic regurgitation. Pericardium No pericardial effusion. No pleural effusion. Aorta Normal size aortic root and proximal ascending aorta. CONCLUSIONS Normal LV size and systolic function. Minimal mitral and tricuspid regurgitation. Aortic valve sclerosis and mild mitral annular calcification. No pericardial effusion. Bubble study was negative for shunt Previewed by: Dr. Sonido Carpio MD (Electronically Signed) Final Date: 10 July 2024 07:54
[2024-07-10] MEDS ORDERED: ATORVASTATIN 80 MG TAB PO SCH (09:00)
[2024-07-10 09:02] VITALS: TEMP 97.8
[2024-07-10 11:30] VITALS: BP 120/69; PULSE 52; RESP 15
--- NOTE | 2024-07-11 01:16 | DS ---
DISCHARGE SUMMARY CHIEF COMPLAINT: Chest pain and right upper extremity hypoesthesias and weakness. HISTORY OF PRESENT ILLNESS AND PHYSICAL EXAMINATION: Details of this man's history and physical can be found in the initial workup. LABORATORY STUDIES: While he was in the hospital, he had laboratory studies, details of which can be found in the laboratory section of his chart. COURSE IN THE HOSPITAL: After admission, he was placed on bedrest, started on intravenous fluids and frequent monitoring of his neurologic status and vital signs. He was seen by Neurology and underwent extensive workup and no pathology was identified. He was asymptomatic, doing well, felt that he could be discharged home on the on his usual medications and he will be followed up as an outpatient. FINAL DIAGNOSES: 1. Hypoesthesias and weakness in the right upper extremity. 2. Possible transient ischemic attack. 3. History of coronary artery disease. OPERATIONS: None. CONSULTATION: Neurology. He is improved. MMGENNA / SPENCERN: [id number] /
--- NOTE | 2024-07-13 09:45 | P.PN ---
Subjective Progress Note Date: 07/10/24 Patient was seen for follow-up. Patient's symptoms have resolved. No new concerns. Objective - Vital Signs Vital signs: Vital Signs Temp 97.8 F 07/10/24 08:00 Pulse 52 L 07/10/24 11:27 Resp 15 07/10/24 11:27 BP 120/69 07/10/24 11:27 Pulse Ox 97 07/10/24 11:27 FiO2 Intake & Output 07/09/24 07/10/24 07/10/24 18:59 06:59 18:59 Intake Total 778 358 Balance 778 358 Weight 66 kg 65 kg Intake: Oral 778 358 Other: Voiding Method Toilet Toilet Toilet # Voids 2 1 - Exam Mental status, speech and language functions are normal. Cranial nerves are normal. Muscle strength normal. No ataxia. - Labs CBC & Chem 7: 07/08/24 12:00 07/08/24 12:00 Assessment and Plan Assessment: * Probable TIA, manifesting with right arm numbness, perioral numbness. 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 Otherwise the examination is nonfocal. * Hypertension * Hyperlipidemia * Ex tobacco use * Previous history of possible TIA x 3 * Coronary artery disease * Marijuana use Plan: MRI of the brain without contrast, revealed no evidence of intracranial mass or acute/subacute infarct. Nonspecific white matter changes, likely secondary to small vessel ischemic disease. I personally reviewed MRI agree with the findings. 2-D echo revealed normal LV size and systolic function with EF 55-60%. No obvious regional wall motion abnormalities. Minimal mitral and tricuspid regurgitation. Aortic valve sclerosis and mild mitral annular calcification. Bubble study negative for shunt. CTA head and neck showed: No evidence of hemodynamically significant stenosis at the carotid bifurcations. No significant diameter reduction to account for the patient's symptoms. No evidence for intracranial aneurysm or high-grade stenosis. Fasting a.m. lipid panel, with cholesterol 90, LDL 26, HDL 36, triglycerides 135. Lipids are well-controlled. Continue home dose of Lipitor 80 mg daily. Hemoglobin A1c 5.5. Optimize control of blood pressure. Patient was on aspirin 81 mg daily, compliant. We will start Plavix 75 mg daily for now. Recommend continuing DAPT for 21 days, then stop aspirin and continue Plavix indefinitely. Neuro checks every 4 hours. Telemetry monitoring rule out any arrhythmia PT, OT, speech therapy DVT prophylaxis: Lovenox 40 mg subcu daily Neurologically clear for discharge.
== END 2024-07-10 12:55 | disposition home or self-care (01) ==
LOC: EC 11:33 → 6NMEDSUR 13:28 → 3SCARD 20:20
PROVIDERS: ADMIT Family Medicine; ATTEND Family Medicine
DX: R07.9 Chest pain, unspecified (principal); R20.1 Hypoesthesia of skin; R53.1 Weakness; E78.5 Hyperlipidemia, unspecified; I25.10 Atherosclerotic heart disease of native coronary artery without angina pectoris; I25.2 Old myocardial infarction; I10 Essential (primary) hypertension; F17.200 Nicotine dependence, unspecified, uncomplicated; G40.909 Epilepsy, unspecified, not intractable, without status epilepticus; Z86.73 Personal history of transient ischemic attack (TIA), and cerebral infarction without residual deficits; Z79.82 Long term (current) use of aspirin; Z79.899 Other long term (current) drug therapy
CPT/HCPCS: 96372 ×2; 99291; 36415; 93005; 93306; 97161; 97166; 80061; 80053; 82550; 84484 ×2; 85025; 85610; 85730; 83036; 71046; 70496; 70450; 70498; 70551; G0378 ×4; J1650 ×2; Q9967